=== PATIENT | female | born 1965 | race Caucasian/White ===

== ENCOUNTER → 2019-07-31 08:27 | Outpatient (CLI) | payer BC, SELFPAY ==
--- NOTE | 2019-07-31 08:32 | MM_ITS ---
PROCEDURE: MM DIG SCREENING MAMM BI W/CAD CLINICAL INDICATION: SCREENING There is a history of breast cancer patient's paternal cousin and paternal aunt both diagnosed before menopause. There has been a previous cyst aspiration left breast for benign disease. COMPARISON: DMDXUAVL DIG MAMM-DX UNI ADD VIEWS-LT from 10/08/2014 DMSB DIG MAMM-SCREEN TRENA from 05/23/2015 DMSB DIG MAMM-SCREEN TRENA W/CAD from 07/07/2017 TECHNIQUE: Standard CC and MLO images were obtained. R2 CAD reviewed. FINDINGS: Moderate diffuse fibroglandular densities are seen in both breast and the findings are fairly symmetrical bilaterally. There is no suspicious lesion in either breast and no suspicious microcalcifications. IMPRESSION: Fibrofatty parenchyma with no suspicious lesions seen BI-RAD Category: 1 Negative FOLLOW-UP: 1YR 1 Year Follow-up (A letter has been sent to the patient regarding results of the study.) Dictated by: Dr. Parveen Sullivan MD 08/01/2019 19:[address] Parveen Sullivan MD in [place] 08/01/2019 19:22
--- NOTE | 2019-07-31 08:45 | XR_ITS ---
PROCEDURE: XR DEXA AXIAL SKELETON CLINICAL HISTORY: MENOPAUSAL SCREENING COMPARISON: No exams were available for comparison FINDINGS: The L1-L4 density is 1.273 grams/centimeters sq with a T-score of 0.8 Left femoral neck density is 0.944 grams/centimeters sq with T-score -0.7 IMPRESSION: Normal bone density with low fracture risk. Suggest follow-up exam in 2 years Dictated by: Claribel De Luna 07/31/2019 09:47 Electronically signed by Arjun Hicks MD in [place] 07/31/2019 12:23
== END ==
PROVIDERS: PCP Nurse Practitioner Family; Visit Provider Obstetrics & Gynecology Gynecology
DX: Z12.31 Encounter for screening mammogram for malignant neoplasm of breast (principal); Z78.0 Asymptomatic menopausal state
CPT/HCPCS: 77067; 77080

== ENCOUNTER → 2019-11-19 12:14 | Outpatient (CLI) | payer BC, SELFPAY ==
--- NOTE | 2019-11-19 12:21 | XR_ITS ---
PROCEDURE: XR FOOT LT MIN 3V CLINICAL INDICATION: LT FOOT INJURY COMPARISON: No exams were available for comparison FINDINGS: No fracture or dislocation. No lytic or blastic change. There is normal mineralization. The joint spaces are well-preserved. No significant degenerative/arthritic changes. No erosive changes evident. Other findings:There is flexion deformity of the distal phalanx of the 2nd 3rd, 4th, and 5th toes IMPRESSION: Flexion of the distal phalanx of the 2nd through 5th toes otherwise negative Dictated by: Arjun Hicks MD 11/19/2019 13:13 Electronically signed by Arjun Hicks MD in [place] 11/19/2019 13:13
== END ==
PROVIDERS: PCP Nurse Practitioner Family; Visit Provider Nurse Practitioner Family
DX: S99.922A Unspecified injury of left foot, initial encounter (principal)
CPT/HCPCS: 73630

== ENCOUNTER → 2020-01-11 12:42 | Outpatient (CLI) | payer BC, SELFPAY ==
--- NOTE | 2020-01-11 12:52 | US_ITS ---
PROCEDURE: US THYROID CLINICAL INDICATION: HYPERTHYROIDISM COMPARISON: No exams were available for comparison FINDINGS: Right lobe: 3 x 1 x 0.6 cm. There is heterogeneous echogenicity. Left lobe: 3 x 1 x 0.6 cm with heterogeneous echogenicity Isthmus: Additional findings: No discrete nodule IMPRESSION: Small heterogeneous thyroid gland. No discrete nodule Dictated by: Arjun Hicks MD 01/11/2020 15:47 Electronically signed by Arjun Hicks MD in [place] 01/11/2020 15:47
== END ==
PROVIDERS: PCP Nurse Practitioner Family; Visit Provider Nurse Practitioner Family
DX: E05.90 Thyrotoxicosis, unspecified without thyrotoxic crisis or storm (principal)
CPT/HCPCS: 76536

== ENCOUNTER → 2020-08-05 09:24 | Outpatient (CLI) | payer BC, SELFPAY ==
--- NOTE | 2020-08-05 09:27 | MM_ITS ---
PROCEDURE: MM DIG SCREENING MAMM BI W/CAD Digital Breast Tomosynthesis Included CLINICAL INDICATION: SCREENING There is a history of breast cancer in the patient's paternal aunt diagnosed before menopause and the patient has 2 cousins both diagnosed before menopause. There has been a previous biopsy left breast for benign disease. COMPARISON: MG DMSB DIG MAMM-SCREEN TRENA from 05/23/2015 MG DMSB DIG MAMM-SCREEN TRENA W/CAD from 07/07/2017 MG MM DIG SCREENING MAMM BI W/CAD from 07/31/2019 TECHNIQUE: Standard CC and MLO images and 3D Tomosynthesis was obtained. R2 CAD reviewed. FINDINGS: Moderate diffuse fibroglandular densities are seen in both breast and the findings of bilateral and symmetrical. Josue images reveal no significant abnormality in either breast. There are no suspicious microcalcifications. IMPRESSION: Mild to moderate diffuse breast density with no suspicious lesions seen BI-RAD Category: 1 Negative FOLLOW-UP: 1YR 1 Year Follow-up (A letter has been sent to the patient regarding results of the study.) Dictated by: Dr. Parveen Sullivan MD 08/05/2020 11:44 Dr. Parveen Sullivan MD in [place] 08/05/2020 11:44
== END ==
PROVIDERS: PCP Nurse Practitioner Family; Visit Provider Obstetrics & Gynecology Gynecology
DX: Z12.31 Encounter for screening mammogram for malignant neoplasm of breast (principal)
CPT/HCPCS: 36415; 77063; 77067; 82533

== ENCOUNTER → 2020-08-11 12:09 | Outpatient (CLI) | payer BC, SELFPAY | PROVIDERS: PCP Nurse Practitioner Family; Visit Provider Nurse Practitioner Family | DX: Z03.818 Encounter for observation for suspected exposure to other biological agents ruled out (principal) | CPT/HCPCS: U0003 ==

== ENCOUNTER → 2020-10-01 15:13 | Outpatient (CLI) | payer BC, SELFPAY | PROVIDERS: PCP Nurse Practitioner Family; Visit Provider Nurse Practitioner Family | DX: Z03.818 Encounter for observation for suspected exposure to other biological agents ruled out (principal) | CPT/HCPCS: U0003 ==

== ENCOUNTER → 2021-03-24 09:16 | Outpatient (CLI) | payer BC, SELFPAY ==
--- NOTE | 2021-03-24 09:35 | XR_ITS ---
PROCEDURE: XR CHEST 2V CLINICAL HISTORY: SOB,COUGH COMPARISON: No exams were available for comparison FINDINGS: The cardiomediastinal silhouette and pulmonary vascularity are within normal limits. No lobar consolidation or collapse. There is some minimal biapical pleural thickening There is asymmetric increased density in the left suprahilar region. This may only be due to vascular overlap however, the appearance is somewhat spiculated. Follow-up chest x-ray with slightly different obliquity or preferably CT scan may provide further evaluation. The remaining lungs are clear. There is mild thoracic kyphosis with mild wedging of T7-T8 and T9. IMPRESSION: 1. Asymmetric density left suprahilar region which may only be due to overlying vascularity however there is a somewhat spiculated appearance. Suggest follow-up preferably CT to confirm stability. 2. Minimal wedging of T7-T8 and T9. Please correlate with clinical findings in regards to the chronicity Dictated by: Arjun Hicks MD 03/24/2021 11:16 Arjun Hicks MD in [place] 03/24/2021 11:16
--- NOTE | 2021-03-24 09:35 | XR_ITS ---
PROCEDURE: XR CERVICAL SPINE 5V CLINICAL INDICATION: CERVICALGIA,PARESTHESIA OF SKIN COMPARISON: No exams were available for comparison FINDINGS: There is normal alignment. There is mild degenerative disc disease at C5-C6 and C6-C7. There is minimal foraminal narrowing on the left and right at C5-C6 and C6-C7. No fracture or dislocation. No lytic or blastic change. No evidence of cervical rib. IMPRESSION: Mild degenerative disc disease with minimal foraminal narrowing bilaterally at C5-C6 and C6-C7 Dictated by: Arjun Hicks MD 03/24/2021 11:10 Arjun Hicks MD in [place] 03/24/2021 11:10
--- NOTE | 2021-03-24 09:36 | ECG_ITS ---
APPROVED REPORT Exam: Resting ECG HR:82 bpm ECG Measurements Heart Rate 82 AXES IA 168 P 78 QRSd 88 QRS 95 QT 398 T 73 QTc 464 Conclusion Normal sinus rhythm Rightward axis Borderline ECG Electronically signed by : Chance Garber, 03/24/2021 21:59:30
== END ==
PROVIDERS: PCP Nurse Practitioner Family; Visit Provider Nurse Practitioner Family
DX: R06.02 Shortness of breath (principal); R05 Cough; M54.2 Cervicalgia; R20.0 Anesthesia of skin; R20.2 Paresthesia of skin; I95.9 Hypotension, unspecified
CPT/HCPCS: 71046; 72050; 93005

== ENCOUNTER → 2021-04-24 09:51 | Outpatient (CLI) | payer BC, SELFPAY | PROVIDERS: PCP Emergency Medicine; Visit Provider Nurse Practitioner Family | DX: R05 Cough (principal) | CPT/HCPCS: 94060 ==

== ENCOUNTER 2021-08-26 10:43 | Emergency (ER) | payer BC, SELFPAY ==
[2021-08-26 12:42] VITALS: BP 119/66; PULSE 75; RESP 19; TEMP 36.7; O2SAT 100; BMI 20.9
--- NOTE | 2021-08-26 12:42 | HMH.EDUTC ---
[facility] [place] Clinical Impression: Strep throat Disposition: Home, Self-Care Condition on Discharge: Good Instructions: Strep Throat, DI for Strep Throat Additional Instructions: Drink plenty of fluids. Take tylenol or ibuprofen for pain or fever. Take the medications as directed. Follow up with your regular doctor. GO TO THE ER FOR ANY WORSENING SYMPTOMS Throw your tooth brush away and get a new one. Prescriptions: Ondansetron [Zofran 4mg ODT] 4 mg PO Q8HP PRN #12 tab PRN Reason: Nausea Transmission Status: Received by [facility] # Amoxicillin [Amoxicillin 500mg Tab] 500 mg PO TID 10 Days #30 tab Transmission Status: Received by [facility] # predniSONE [Deltasone 10mg tablet] 10 mg PO BID 3 Days #6 tab Transmission Status: Received by [facility] # Referrals: Handy Bloom MD [Primary Care Provider] - Forms: Work/School Release Time of Disposition: 12:50 Medical Decision Making - Medical Records Medical records reviewed: No: I reviewed the patient's medical records. - Ed Inquiry Pt receiving controlled substance: No Vital Signs: 08/26/21 12:42 08/26/21 12:46 Temperature 98.1 F 98.1 F Temperature Source Oral Pulse Rate 75 Pulse Rate [Left] 75 Respiratory Rate 19 18 Blood Pressure 119/66 Blood Pressure [Right Arm] 119/66 Blood Pressure Mean [Right Arm] 83 02 Sat by Pulse Oximetry 100 - Lab Data Lab results reviewed: Yes: I reviewed the patient's lab results. Lab Results 08/26/21 12:45: Strep Scn Rapid Clinic Positive A [facility] [place] - General Stated complaint: sore throat, cough, congestion, H/A Time Seen by Provider: 08/26/21 12:42 - History of Present Illness Provider Complaint: She c/o sore throat and feeling bad for the past 2 days. She denies a cough or congestion. She has been vaccinated against covid-19. - Related Data Previous Rx's Medication Instructions Recorded Amoxicillin [Amoxicillin 500mg Tab] 500 mg PO TID 10 Days #30 tab 08/26/21 Ondansetron [Zofran 4mg ODT] 4 mg PO Q8HP PRN #12 tab 08/26/21 predniSONE [Deltasone 10mg tablet] 10 mg PO BID 3 Days #6 tab 08/26/21 Allergies Allergy/AdvReac Type Severity Reaction Status Date / Time From NEOMYCIN & POLYMYXIN B Allergy Intermediate I-RASH, Uncoded 10/04/17 14:50 SULF, APOLLO... ITCHING From NEOSPORIN Allergy Intermediate I-RASH, Uncoded 10/04/17 14:50 ITCHING [facility] History - Hepatitis A Screen Attestation statement:: This patient has been screened for Hepatitis A risk factors. I have reviewed the patient's past medical history: Yes ROS Obtained: Yes All systems reviewed & no additional complaints - Constitutional Constitutional: Reports as per HPI - Eyes Eyes: Denies eye discharge - ENT Ears, Nose, Mouth, and Throat: Reports as per HPI - Cardiovascular Cardiovascular: Denies chest pain - Respiratory Respiratory: Denies chest congestion, Reports cough, Denies dyspnea, Denies stridor, Denies wheezing - Gastrointestinal Gastrointestingal: Reports: nausea. Denies: abdominal pain, diarrhea, vomiting Physical Exam - General General appearance: alert, in no apparent distress - Head Head exam: atraumatic, normocephalic, normal inspection - Eye Eye exam: Present: normal appearance, PERRL, EOMI - ENT ENT exam: Present: mucous membranes moist, normal external ear exam - Expanded ENT Exam TM/Canal exam: Bilateral TM: erythema, bulging, effusion Nose exam: Absent: sinus tenderness Nasal speculum exam: Bilateral: normal Mouth exam: Present: normal external inspection, tongue normal. Absent: drooling Teeth exam: Present: normal inspection Throat exam: Present: tonsillar erythema, tonsillomegaly, tonsillar exudate. Absent: R peritonsillar mass, L peritonsillar mass, muffled voice - Neck Neck exam: Present: normal inspection, full ROM, trachea midline. Absent: meningismus, lymphadenopathy
[2021-08-26 12:46] VITALS: BP 119/66; PULSE 75; RESP 18; TEMP 36.7
[2021-08-26 12:46] LABS: UTC Strep Screen (Rapid) Positive (Negative)
== END 2021-08-26 12:55 | disposition home or self-care (01) ==
PROVIDERS: Emergency Provider Nurse Practitioner Family; PCP Emergency Medicine
DX: J02.0 Streptococcal pharyngitis (principal)
CPT/HCPCS: 87880; 99202; G0463

== ENCOUNTER → 2021-09-23 08:31 | Outpatient (CLI) | payer BC, SELFPAY ==
--- NOTE | 2021-09-23 08:33 | MM_ITS ---
PROCEDURE INFORMATION: Exam: MG Bilateral Screening 3D Mammography Exam date and time: 09/23/2021 8:33 AM Age: 56 years old Clinical indication: Encounter for screening mammogram for malignant neoplasm of breast . Family history of breast carcinoma. TECHNIQUE: Imaging protocol: Bilateral screening tomosynthesis and 2D mammography including computer-aided detection (CAD) when performed. COMPARISON: 1. MG MM DIG SCREENING MAMM BI W/CAD 08/05/2020 9:28 AM 2. MG MM DIG SCREENING MAMM BI W/CAD 07/31/2019 8:56 AM 3. MG DMSB DIG MAMM-SCREEN TRENA W/CAD 07/07/2017 8:35 AM FINDINGS: MAMMOGRAPHY: Breast composition: There are scattered areas of fibroglandular density. Mass: No suspicious masses. Architectural distortion: No suspicious distortion. Calcifications: No suspicious calcifications. Asymmetric density: None. Skin thickening: None. Axillary adenopathy: None. IMPRESSION: No mammographic evidence of malignancy. Annual screening is recommended unless otherwise clinically indicated. ASSESSMENT: BI-RADS Category 1: Negative
== END ==
PROVIDERS: PCP Emergency Medicine; Visit Provider Obstetrics & Gynecology Gynecology
DX: Z12.31 Encounter for screening mammogram for malignant neoplasm of breast (principal)
CPT/HCPCS: 77063; 77067

== ENCOUNTER 2023-03-01 08:22 | Emergency (ER) | payer OTHER, BC, SELFPAY ==
[2023-03-01] VITALS (11 sets, daily range): BP systolic 97–131; BP diastolic 52–74; PULSE 65–91; RESP 15–20; TEMP 36.8; O2SAT 96–100; BMI 25.4
--- NOTE | 2023-03-01 08:25 | ECG_ITS ---
APPROVED REPORT Exam: Resting ECG HR:81 bpm ECG Measurements Heart Rate 81 AXES NH 170 P 70 QRSd 93 QRS 79 QT 364 T 70 QTc 401 Conclusion SINUS RHYTHM NORMAL ECG UNCONFIRMED REPORT Electronically signed by : Chance Garber MD 03/01/2023 20:09:12
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
--- NOTE | 2023-03-01 08:34 | PC.NURSE ---
family at BS
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
[2023-03-01 08:57] LABS: Basophils % 0.3 % (0.1-2.0); Eosinophils # 0.1 K/mm3 (0.0-0.4); Eosinophils % 1.8 % (0.1-12.0); Hematocrit 38.4 % (37.0-47.0); Hemoglobin 12.5 g/dL (12.2-16.2); Lymphocytes # 1.1 K/mm3 (0.7-4.5); Lymphocytes % 29.4 % (10-50); Mean Corpuscular HGB Conc 32.5 g/dL (31.8-35.4); Mean Corpuscular Hemoglobin 30.1 pg (27.0-31.2); Mean Corpuscular Volume 92.4 fl (81-99); Mean Platelet Volume 7.4 fl (7.4-10.4); Monocytes # 0.2 K/mm3 (0.1-1.0); Monocytes % 5.2 % (1.7-9.3); Neutrophils # 2.5 K/mm3 (1.8-7.8); Neutrophils % 63.3 % (37.0-80.0); Platelet Count 321 K/mm3 (142-424); Red Blood Count 4.15 M/mm3 (4.20-5.40); Red Cell Distribution Width 13.5 % (11.5-17.5); White Blood Count 3.9 K/mm3 (4.8-10.8)
[2023-03-01 08:59] LABS: Chloride 106 mmol/L (98-107); Sodium 141 mmol/L (136-145)
--- NOTE | 2023-03-01 08:59 | PC.NURSE ---
Radiology aware of orders; Spoke with Damaris
[2023-03-01 09:01] LABS: Alanine Aminotransferase 17 U/L (12-78); Alkaline Phosphatase 44 U/L (38-126); Aspartate Amino Transferase 28 U/L (14-36); Blood Urea Nitrogen 12 mg/dl (7-17); Creatinine Clearance Estimated 80 mL/min (50-200); Estimated Glomerular Filt Rate 65 ml/min (>60); GFR (African American) 79 ML/MIN (>60)
[2023-03-01 09:02] LABS: Albumin Level 4.2 g/dl (3.5-5.0); Albumin/Globulin Ratio 1.6 (1.1-1.8); Bilirubin,Total < 0.1 mg/dl (0.2-1.3); Calcium 8.4 mg/dl (8.4-10.2); Carbon Dioxide 24 mmol/L (22.0-30.0); Globulin 2.7 g/dL (1.3-3.2); Glucose 82 mg/dl (74-100); Total Protein,Serum 6.9 g/dl (6.3-8.2)
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
--- NOTE | 2023-03-01 09:04 | PC.NURSE ---
pt to rad
--- NOTE | 2023-03-01 09:13 | PC.NURSE ---
K.Brown is rounding on pt
[2023-03-01 09:33] LABS: Troponin I < 0.01 ng/ml (0.00-0.034)
--- NOTE | 2023-03-01 10:07 | PC.NURSE ---
rounded on pt states her arm and back was hurting relayed it to the nurse she also asked how long before her scans would be back. informed pt that we have them sent out to another facility and i dont have a specific time frame as to when they will be back
--- NOTE | 2023-03-01 10:25 | PC.NURSE ---
contacted rad to check status of CT results, states no preliminary results available yet.
--- NOTE | 2023-03-01 11:06 | PC.NURSE ---
rounded on pt no complaints, still waiting for results , family at bedside
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
--- NOTE | 2023-03-01 12:21 | PC.NURSE ---
checked on pt nothing needed at this time, visitor at bedside
== END 2023-03-01 13:29 | disposition home or self-care (01) ==
PROVIDERS: Emergency Provider Emergency Medicine; PCP Emergency Medicine
DX: M54.2 Cervicalgia (principal); R07.89 Other chest pain; M25.512 Pain in left shoulder; V47.0XXA Car driver injured in collision with fixed or stationary object in nontraffic accident, initial encounter
CPT/HCPCS: 70450; 71045; 71100; 71275; 72072; 72125; 74177; 80053; 84484; 85025; 93005; 96374; 96375; 99285; Q9967

== ENCOUNTER → 2023-03-22 08:21 | Outpatient (CLI) | payer BC, SELFPAY ==
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
== END ==
PROVIDERS: PCP Emergency Medicine; Visit Provider Obstetrics & Gynecology Gynecology
DX: Z12.31 Encounter for screening mammogram for malignant neoplasm of breast (principal)
CPT/HCPCS: 77063; 77067

== ENCOUNTER → 2023-04-06 12:47 | Outpatient (CLI) | payer BC, SELFPAY ==
--- NOTE | 2023-04-06 12:52 | MM_ITS ---
PROCEDURE INFORMATION: Exam: US Left Breast, Complete MG Left Diagnostic Breast Tomosynthesis Exam date and time: 04/06/2023 1:23 PM Age: 58 years old Clinical indication: Patient recalled on the basis of a screening mammogram for further evaluation; Left breast; asymmetry TECHNIQUE: Imaging protocol: Complete ultrasound of all four quadrants of the left breast and the retroareolar regions, including ultrasound of the axilla when performed. Left Diagnostic tomosynthesis and 2D mammography including computer-aided detection (CAD) when performed. Unilateral or bilateral exam. COMPARISON: MG MM DIG MAMM DX UNILAT LT CAD 04/06/2023 12:48 PM FINDINGS: MAMMOGRAPHY: Digital diagnostic spot compression views of the left breast and 90 degree lateral view of the left breast demonstrate normal overlapping fibroglandular structures without persistent mass or asymmetry identified. ULTRASOUND: Sonographic images of the left breast including the retroareolar region, all 4 quadrants and the axilla do not demonstrate any solid or cystic masses. No architectural distortion or acoustical shadowing. No skin thickening or axillary adenopathy. IMPRESSION: No mammographic or sonographic evidence of malignancy. Annual bilateral mammographic screening is recommended unless otherwise clinically indicated. ASSESSMENT: BI-RADS Category 1: Negative
== END ==
PROVIDERS: PCP Emergency Medicine; Visit Provider Emergency Medicine
DX: R92.8 Other abnormal and inconclusive findings on diagnostic imaging of breast (principal)
CPT/HCPCS: 76641; 77061; 77065; G0279

== ENCOUNTER → 2023-07-13 10:28 | Outpatient (CLI) | payer BC, SELFPAY ==
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
== END ==
PROVIDERS: PCP Emergency Medicine; Visit Provider Orthopaedic Surgery Adult Reconstructive Orthopaedic Surgery
DX: M25.521 Pain in right elbow (principal)
CPT/HCPCS: 73221

== ENCOUNTER 2024-05-21 08:16 | Outpatient (CLI) | payer BC, SELFPAY ==
--- NOTE | 2024-05-21 08:37 | MM_ITS ---
PROCEDURE INFORMATION: Exam: MG Bilateral Screening 3D Mammography Exam date and time: 05/21/2024 8:21 AM Age: 59 years old Clinical indication: Screening mammogram TECHNIQUE: Imaging protocol: Bilateral Screening tomosynthesis and 2D mammography including computer-aided detection (CAD) when performed. COMPARISON: 1. MG MM DIG MAMM DX UNILAT LT CAD 04/06/2023 12:48 PM 2. MG MM DIG SCREENING MAMM BI W/CAD 03/22/2023 8:25 AM 3. MG MM DIG SCREENING MAMM BI W/CAD 09/23/2021 8:31 AM 4. MG MM DIG SCREENING MAMM BI W/CAD 08/05/2020 9:28 AM FINDINGS: MAMMOGRAPHY: Breast composition: There are scattered areas of fibroglandular density. Mass: None. Architectural distortion: No new or suspicious architectural distortion. Calcifications: No new or suspicious calcifications are present Asymmetric density: No new or suspicious asymmetric density is present Skin thickening: None. Axillary adenopathy: None. IMPRESSION: No mammographic evidence of malignancy. Recommend annual screening mammography unless otherwise clinically indicated. ASSESSMENT: BI-RADS category 1: Negative.
== END 2024-05-21 23:59 | disposition home or self-care (01) ==
LOC: RAD 08:16
PROVIDERS: PCP Obstetrics & Gynecology Gynecology; Visit Provider Obstetrics & Gynecology Gynecology
DX: Z12.31 Encounter for screening mammogram for malignant neoplasm of breast (principal)
CPT/HCPCS: 77063; 77067

== ENCOUNTER 2024-05-23 10:22 | Outpatient (CLI) | payer BC, SELFPAY ==
--- NOTE | 2024-05-23 10:27 | XR_ITS ---
FINAL REPORT CLINICAL HISTORY: Right foot pain COMPARISON: None FINDINGS: RIGHT FOOT 3 views of the right foot were obtained. There is no acute fracture or dislocation. There is mild degenerative change at the 1st MTP. Visualized joint spaces are normally aligned. Soft tissues are unremarkable. IMPRESSION: Mild degenerative change without acute bony abnormality. Reviewed, Interpreted and Dictated by Star Robison III, MD Transcribed by Alejandrina Yousif Authenticated and [facility]
--- NOTE | 2024-05-23 10:27 | XR_ITS ---
FINAL REPORT CLINICAL HISTORY: Left foot pain COMPARISON: None FINDINGS: LEFT FOOT Three views of the left foot demonstrate no acute fracture or dislocation. The visualized joint spaces are normally aligned. The soft tissues are unremarkable. IMPRESSION: No acute bony abnormality. Reviewed, Interpreted and Dictated by Star Robison III, MD Transcribed by Alejandrina Yousif Authenticated and [facility]
== END 2024-05-23 23:59 | disposition home or self-care (01) ==
PROVIDERS: PCP Emergency Medicine; Visit Provider Family Medicine
DX: M79.671 Pain in right foot (principal); M79.672 Pain in left foot
CPT/HCPCS: 73630

== ENCOUNTER 2024-07-20 09:12 | Outpatient (CLI) | payer BC, SELFPAY ==
--- NOTE | 2024-07-20 | MR_ITS ---
FINAL REPORT CLINICAL HISTORY: CERVICAL DDD chronic neck pain with left arm pain, numbness, tingling COMPARISON: None FINDINGS: Multi planar MR imaging was obtained of the cervical spine. There is abnormal decreased signal throughout the cervical discs. The vertebrae are of normal height. There is minimal spondylolisthesis of C5 on C6. There is moderate disc space narrowing at C5-6 and C6-7. The cervical cord demonstrates normal signal and configuration. C2-C3: There is no evidence of significant disc bulge or protrusion. There is no significant facet hypertrophy. C3-C4: There is no evidence of significant disc bulge or protrusion. There is no significant facet hypertrophy. C4-C5: There is no evidence of significant disc bulge or protrusion. There is no significant facet hypertrophy. C5-C6: Moderate diffuse disc bulge. Endplate hypertrophy. High-grade right and moderate left neuroforaminal narrowing. C6-C7: Moderate diffuse disc bulge. Moderate to high-grade bilateral neuroforaminal narrowing. C7-T1: There is no evidence of significant disc bulge or protrusion. There is no significant facet hypertrophy. IMPRESSION: Neuroforaminal compromise high-grade on the right at C5-6 and moderate to high-grade bilaterally at C6-7. Reviewed, Interpreted and Dictated by Gilberto Ortega MD Transcribed by Alejandrina Yousif Authenticated and . [facility]
== END 2024-07-20 23:59 | disposition home or self-care (01) ==
LOC: RAD 09:13
PROVIDERS: PCP Emergency Medicine; Visit Provider Physician Assistant
DX: M54.2 Cervicalgia (principal)
CPT/HCPCS: 72141

== ENCOUNTER 2024-07-23 08:00 | Outpatient (RCR) | payer BC, SELFPAY | END 2024-07-23 23:59 | disposition home or self-care (01) | LOC: OT 08:00 | PROVIDERS: Visit Provider Orthopaedic Surgery Adult Reconstructive Orthopaedic Surgery | DX: M77.8 Other enthesopathies, not elsewhere classified (principal) | CPT/HCPCS: 97014; 97035; 97140; 97164; 97165; 97530; G0283 ==

== ENCOUNTER 2024-10-01 11:46 | Emergency (ER) | payer BC, SELFPAY ==
[2024-10-01 12:10] VITALS: BP 140/85; PULSE 80; RESP 16; TEMP 36.5; O2SAT 98; BMI 24.7
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
[2024-10-01 12:31] VITALS: BP 140/85; PULSE 80; RESP 16; TEMP 36.5; O2SAT 98
== END 2024-10-01 12:33 | disposition home or self-care (01) ==
PROVIDERS: Emergency Provider Nurse Practitioner; PCP Emergency Medicine
DX: S00.451A Superficial foreign body of right ear, initial encounter (principal); W45.8XXA Other foreign body or object entering through skin, initial encounter
CPT/HCPCS: 99213; G0381

== ENCOUNTER 2024-10-08 15:18 | Outpatient (CLI) | payer BC, SELFPAY ==
--- NOTE | 2024-10-08 15:22 | MR_ITS ---
PROCEDURE INFORMATION: Exam: MR Left Upper Extremity Joint Without Contrast; Shoulder Exam date and time: 10/08/2024 4:11 PM Age: 59 years old Clinical indication: Pain; Shoulder; Left; Patient HX: Lrom; Additional info: Lt shoulder impinement TECHNIQUE: Imaging protocol: Magnetic resonance imaging of the left upper extremity without contrast. Exam focused on the shoulder. COMPARISON: MR CERVICAL SPINE WO CON 07/20/2024 9:55 AM FINDINGS: Bones/joints: Moderate anterior and mild lateral downsloping of the acromion. Trace subacromial/subdeltoid fluid. Glenoid humeral head cartilage are unremarkable. Rotator interval: Mild inflammatory change in the rotator interval. Glenoid labrum: Glenoid labrum is unremarkable. Supraspinatus tendon: Articular surface medium grade partial-thickness tear of the supraspinatus tendon close to the footplate, measuring approximately 9.2 mm medial-lateral. [id number] tendinosis of the supraspinatus tendon. Infraspinatus tendon: [id number] tendinosis of the infraspinatus tendon. No distinct tear. Subscapularis tendon: Unremarkable. No evidence of tear. Teres minor tendon: Subscapularis and teres minor tendons are unremarkable. Tendon of biceps brachii: Unremarkable. No evidence of tear. Glenohumeral ligaments: Unremarkable. Soft tissues: Note made of moderate thickening of the axillary pouch. Trace pelvic fluid. Normal muscle bulk and signal. IMPRESSION: 1. Moderate tendinosis of the supraspinatus tendon, with medium grade partial thickness articular surface tear close to the footplate measuring approximately 9 mm medial to lateral. 2. Thickened axillary pouch. Mild inflammatory change in the rotator interval. These findings can be seen with adhesive capsulitis. Recommend correlation. 3. Trace subacromial/subdeltoid fluid. 4. Moderate anterior and mild lateral downsloping of the acromion. Predisposes to subacromial impingement.
== END 2024-10-08 23:59 | disposition home or self-care (01) ==
LOC: RAD 15:18
PROVIDERS: PCP Emergency Medicine; Visit Provider Physician Assistant
DX: M75.42 Impingement syndrome of left shoulder (principal)
CPT/HCPCS: 73221

== ENCOUNTER 2024-10-12 08:00 | Outpatient (RCR) | payer BC, SELFPAY | END 2024-10-12 23:59 | disposition home or self-care (01) | LOC: PT 08:00 | PROVIDERS: PCP Emergency Medicine; Visit Provider Orthopaedic Surgery Adult Reconstructive Orthopaedic Surgery | DX: M50.30 Other cervical disc degeneration, unspecified cervical region (principal) | CPT/HCPCS: 97014; 97035; 97110; 97140; 97163; 97164; G0283 ==

== ENCOUNTER 2024-11-15 10:00 | Outpatient (RCR) | payer BC, SELFPAY | END 2024-11-15 23:59 | disposition home or self-care (01) | LOC: OT 10:00 | PROVIDERS: Visit Provider Orthopaedic Surgery Adult Reconstructive Orthopaedic Surgery | DX: Z98.890 Other specified postprocedural states (principal) | CPT/HCPCS: 97014; 97035; 97110; 97140; 97165; 97530; G0283 ==

== ENCOUNTER 2024-12-11 11:50 | Outpatient (CLI) | payer BC, SELFPAY | END 2024-12-11 23:59 | disposition home or self-care (01) | LOC: LAB.DROPOF 12-13 11:54 | PROVIDERS: PCP Emergency Medicine; Visit Provider Nurse Practitioner | DX: R30.9 Painful micturition, unspecified (principal) | CPT/HCPCS: 87086; 87088; 87186 ==

== ENCOUNTER 2024-12-12 15:00 | Outpatient (RCR) | payer BC, SELFPAY | END 2024-12-12 23:59 | disposition home or self-care (01) | LOC: OT 15:00 | PROVIDERS: Visit Provider Orthopaedic Surgery Adult Reconstructive Orthopaedic Surgery | DX: Z98.890 Other specified postprocedural states (principal) | CPT/HCPCS: 97014; 97110; 97140; 97168; 97530; G0283 ==

== ENCOUNTER 2025-01-14 08:00 | Outpatient (RCR) | payer BC, SELFPAY | END 2025-01-14 23:59 | disposition home or self-care (01) | LOC: OT 08:00 | PROVIDERS: Visit Provider Orthopaedic Surgery Adult Reconstructive Orthopaedic Surgery | DX: Z98.890 Other specified postprocedural states (principal) | CPT/HCPCS: 97010; 97014; 97035; 97110; 97140; 97168; 97530; G0283 ==

== ENCOUNTER 2025-02-13 15:00 | Outpatient (RCR) | payer BC, SELFPAY | END 2025-02-13 23:59 | disposition home or self-care (01) | LOC: OT 15:00 | PROVIDERS: Visit Provider Orthopaedic Surgery Adult Reconstructive Orthopaedic Surgery | DX: Z98.890 Other specified postprocedural states (principal) | CPT/HCPCS: 97014; 97110; 97140; 97168; 97530; G0283 ==

== ENCOUNTER 2025-03-14 15:00 | Outpatient (RCR) | payer BC, SELFPAY | END 2025-03-14 23:59 | disposition home or self-care (01) | LOC: OT 15:00 | PROVIDERS: Visit Provider Orthopaedic Surgery Adult Reconstructive Orthopaedic Surgery | DX: F33.9 Major depressive disorder, recurrent, unspecified (principal); Z96.612 Presence of left artificial shoulder joint | CPT/HCPCS: 97014; 97110; 97140; 97168; G0283 ==

== ENCOUNTER 2025-04-03 15:00 | Outpatient (RCR) | payer BC, SELFPAY | END 2025-04-03 23:59 | disposition home or self-care (01) | LOC: OT 15:00 | PROVIDERS: Visit Provider Orthopaedic Surgery Adult Reconstructive Orthopaedic Surgery | DX: F33.9 Major depressive disorder, recurrent, unspecified (principal); Z96.612 Presence of left artificial shoulder joint | CPT/HCPCS: 97014; 97110; 97140; G0283 ==

== ENCOUNTER 2025-04-08 14:00 | Outpatient (POV) | payer BC, SELFPAY ==
--- OUTSIDE RECORDS SUMMARY | 2025-04-08 14:03 | XMS_ITS | Clinical Summary ---
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
--- OUTSIDE RECORDS SUMMARY | 2025-04-08 14:03 | XMS_ITS | Data Portability ---
Author Organization [place] & ANDRAE Quintana ADMIN Address [address] [place] [id number] Care Team Providers Care Pc Tech Name Role Phone KEY WATTS Referring Provider HANDY HURD Primary Care Provider Assessment Encounter Date Assessment Date Assessment LastModified by Organization Details LastModified Time 11/23/2023 11/23/2023 Evaluation and examination. Reviewed PMH. Discussed podiatric pathology including treatment options with the patient at length. Reviewed referring provider's notes. Not available 11/23/2023 09:28:24 02/29/2024 02/29/2024 13 minute telemedicine evaluation with greater than 50% direct patient contact regarding history, exam, diagnosis, treatment plan. [email or web address] Not available 02/29/2024 16:44:04 Plan of Treatment Reminders Order Date Submit Date Provider Last Modified By Organization Details Last Modified Time Details Appointments None recorded. Lab [facility]inalysis, [facility], [address] [place], [address], 4 10:43:14 CBC w/ auto diff 2023 [facility], [address] [place], [address], 13:19:34 TSH, serum or plasma 2023 [facility], [address] [place], [address], 4 14:00:50 lupus anticoagula nt, plasma 2023 [facility], [address] [facility] [place], [address], 4 07:55:18 EMILEE + rf (antinuclea r antibodies + rheumatoid factor), quantitativ e, serum 2023 [facility], [address] [facility] [place], [address], 4 07:54:39 C-reactive protein, quantitativ e, serum or plasma 2023 024 [facility], [address] [facility] [place], [address], 4 14:00:52 ESR (erythrocyt e sedimentati on rate), blood 2023 [facility], [address] [facility] [place], [address], 4 14:30:21 anti-dsdna Ab, serum, reflex confirmatio n 2023 [facility], [address] [facility] [place], [address], 4 07:54:49 arrieta Ab, serum 2023 [facility], [address] [place], [address], 4 07:54:59 Referral orthopedic surgeon referral 2023 024 [email or web address] 0 Sreedhar Tate MD, [address], [address], [place], [address], 4 14:02:09 rheumatolog ist referral 2023 024 ventura Alex MD, [address] [facility], [address], [place], [address], 4 12:41:34 sleep medicine referral 2023 024 RAMIRO Crooks MD, [address], [address], [place], [address], 4 08:51:53 Procedures polysomnogr aphy, diagnostic (PROC) [email or web address] [place] [address] Centralized Scheduling, [address] [place], [address], 4 09:49:54 Surgeries None recorded. Imaging XR, shoulder, 2 or more view - LEFT SHOULDER 2023 024 [facility] Centralized Scheduling, [address] [place], [address], 4 07:36:22 XR, foot 2023 024 [email or web address] [facility], [address] [place] [address], [address], [place], [address], 4 09:30:22 Medication Orders prednisone 20 mg tablet 2023 024 [facility][id number], [address], [id number], 4 09:07:04 Depo-Medrol 40 mg/mL suspension for injection 2023 024 [facility][id number], [address], [id number], 4 10:34:05 Patient TargetsNo targets recorded. Patient Instructions Encounter Date Encounter Id Patient Instructions Last Modified By Organization Details Last Modified Time 11/23/2023 [id number] f/u 2 months [email or web address] Not available 09:30:09 Some of the information in this note was entered by the [facility] under the direction and training of the attending physician. I have reviewed the documentation of the encounter entered by the [facility] and attest that it is accurate. [email or web address] materials planner/production planner software was utilized to enter some information in this note and therefore may contain voice recognition errors. Intake and other documentation entered by Kerline Torres CMA. Not available 11/23/2023 09:30:21 Reason for Referral Blockmason Referral for Fatigue Referring Physician: Handy Hurd [facility], Encounter Date: 02/21/2024 Sleep Medicine Referral for Fatigue Referring Physician: Handy Hurd [facility], Encounter Date: 02/21/2024 Orthopedic Surgeon Referral for Pain of left shoulder joint Referring Physician: Handy Hurd [facility], Encounter Date: 05/08/2024 Results Created Date Observation Date Name Description Value Unit Range Abnormal Flag Note LastModifiedBy Organization Detail LastModifiedTime 02/21/20 24 02/21/2024 CBC AUTO W DIFF WBC 3.3 10 4.5-11 .5 low Not Available [facility] (Lab Registration) [address] [place], [address], 02/21/2024 13:19:34 02/21/20 24 02/21/2024 CBC AUTO W DIFF RBC 3.82 10 4.25-5 .57 low Not Available [facility] (Lab Registration) [address] [place], [address], 02/21/2024 13:19:34 02/21/20 24 02/21/2024 CBC AUTO W DIFF HGB 11.7 g/dL 12.0-1 5.7 low Not Available [facility] (Lab Registration) [address] [place], [address], 02/21/2024 13:19:34 02/21/20 24 02/21/2024 CBC AUTO W DIFF HCT 35.6 % 36.0-4 7.0 low Not Available [facility] (Lab Registration) [address] [place], [address], 02/21/2024 13:19:34 02/21/20 24 02/21/2024 CBC AUTO W DIFF MCV 93.2 fL 80-95 Not Available [facility] (Lab Registration) [address] [place], [address], 02/21/2024 13:19:34 02/21/20 24 02/21/2024 CBC AUTO W DIFF MCH 30.6 pg 27.0-3 4.0 Not Available [facility] (Lab Registration) [address] [place], [address], 02/21/2024 13:19:34 02/21/20 24 02/21/2024 CBC AUTO W DIFF MCHC 32.9 g/dL 32.0-3 6.0 Not Available [facility] (Lab Registration) [address] [place], [address], 02/21/2024 13:19:34 02/21/20 24 02/21/2024 CBC AUTO W DIFF platelet count 295 10 150-45 0 Not Available [facility] (Lab Registration) [address] [place], [address], 02/21/2024 13:19:34 02/21/20 24 02/21/2024 CBC AUTO W DIFF RDW 13.1 % 12.3-1 5.1 Not Available [facility] (Lab Registration) [address] [place], [address], 02/21/2024 13:19:34 02/21/20 24 02/21/2024 CBC AUTO W DIFF MPV 9.6 fL 7.4-10 .4 Not Available [facility] (Lab Registration) [address] [place], [address], 02/21/2024 13:19:34 02/21/20 24 02/21/2024 CBC AUTO W DIFF granulocyte% 56.8 % 40-75 Not Available [facility] (Lab Registration) [address] [place], [address], 02/21/2024 13:19:34 02/21/20 24 02/21/2024 CBC AUTO W DIFF lymphocyte% 31.7 % 15-57 Not Available [facility] (Lab Registration) [address] [place], [address], 02/21/2024 13:19:34 02/21/20 24 02/21/2024 CBC AUTO W DIFF monocyte% 8.8 % 4.0-12 .0 Not Available [facility] (Lab Registration) [address] [place], [address], 02/21/2024 13:19:34 02/21/20 24 02/21/2024 CBC AUTO W DIFF eosinophil% 2.4 % 0.0-4. 0 Not Available [facility] (Lab Registration) [address] [place], [address], 02/21/2024 13:19:34 02/21/20 24 02/21/2024 CBC AUTO W DIFF basophil% 0.3 % 0.0-1. 0 Not Available [facility] (Lab Registration) [address] [place], [address], 02/21/2024 13:19:34 02/21/20 24 02/21/2024 CBC AUTO W DIFF immature granulocytes % 0.0 % 0.0-0. 8 Not Available [facility] (Lab Registration) [address] [place], [address], 02/21/2024 13:19:34 02/21/20 24 02/21/2024 CBC AUTO W DIFF granulocyte# 1.86 10 Not Available [facility] (Lab Registration) [address] [place], [address], 02/21/2024 13:19:34 02/21/20 24 02/21/2024 CBC AUTO W DIFF lymphocyte# 1.04 10 Not Available [facility] (Lab Registration) [address], [place], [address], 02/21/2024 13:19:34 02/21/20 24 02/21/2024 CBC AUTO W DIFF monocyte# 0.29 10 Not Available [facility] (Lab Registration) [address] [place], [address], 02/21/2024 13:19:34 02/21/20 24 02/21/2024 CBC AUTO W DIFF eosinophil# 0.08 10 Not Available [facility] (Lab Registration) [address] [place], [address], 02/21/2024 13:19:34 02/21/20 24 02/21/2024 CBC AUTO W DIFF basophil# 0.01 10 Not Available [facility] (Lab Registration) [address] [place], [address], 02/21/2024 13:19:34 02/21/20 24 02/21/2024 CBC AUTO W DIFF immature granulocytes # 0.00 10 Not Available [facility] (Lab Registration) [address] [place], [address], 02/21/2024 13:19:34 02/21/20 24 02/21/2024 CBC AUTO W DIFF manual differential NO Not Available [facility] (Lab Registration) [address] [place], [address], 02/21/2024 13:19:34 02/21/20 24 02/21/2024 CBC AUTO W DIFF note Unles s other heredia noted testi ng perfo rmed at: [facility] [employer] [place] [address] [phone] [phone] 00 Devan arevalo MD CLIA: [id number] Not Available [facility] (Lab Registration) [address] [place], [address], 02/21/2024 13:19:34 02/21/20 24 02/21/2024 THYRO ID STIMU LATIN G HORMO NE thyroid stimulating hormone 0.28 mIU/m L 0.34-4 .80 low Not Available [facility] (Lab Registration) [address], [place], [address], 02/21/2024 14:00:50 02/21/20 24 02/21/2024 THYRO ID STIMU LATIN G HORMO NE note Unles s other heredia noted testi ng perfo rmed at: [facility] [address] [place] [address] [phone] [phone] 00 Devan arevalo MD CLIA: [id number] Not Available [facility] (Lab Registration) [address] [place], [address], 02/21/2024 14:00:50 02/21/20 24 02/21/2024 C-ANGIE CTIVE PROTE IN C-reactive protein, quant 0.10 mg/dL 0.05-0 .300 Not Available [facility] (Lab Registration) [address] [place], [address], 02/21/2024 14:00:52 02/21/20 24 02/21/2024 C-ANGIE CTIVE PROTE IN note Unles s other heredia noted testi ng perfo rmed at: [facility] [address] [place] [address] [phone] [phone] 00 Devan arevalo MD CLIA: [id number] Not Available [facility] (Lab Registration) [address] [place], [address], 02/21/2024 14:00:52 02/21/20 24 02/21/2024 T4 FREE T4,free 1.03 NG/dL 0.76-1 .46 Effec tive today 013 new Refer ence Range . Not Available [facility] (Lab Registration) [address], [place], [address], 02/21/2024 14:21:18 02/21/20 24 02/21/2024 T4 FREE note Unles s other heredia noted testi ng perfo rmed at: [facility] [address] [place] [address] 87-36 00 Devan arevalo MD CLIA: [id number] Not Available [facility] (Lab Registration) [address] [place], [address], 02/21/2024 14:21:18 02/21/20 24 02/21/2024 SEDIM ENTAT ION RATE sedimentatio n rate 2 mm/HR 0-30 Not Available [facility] (Lab Registration) [address] [place], [address], 02/21/2024 14:30:21 02/21/20 24 02/21/2024 SEDIM ENTAT ION RATE note Unles s other heredia noted testi ng perfo rmed at: [facility] [address] [place] [address] 87-36 00 Devan arevalo MD CLIA: [id number] Not Available [facility] (Lab Registration) [address] [place], [address], 02/21/2024 14:30:21 02/21/20 24 02/21/2024 RA FACTO R QUAL note Unles s other heredia noted testi ng perfo rmed at: [facility] [address] [place] [address] 87-36 00 Devan arevalo MD CLIA: [id number] Not Available [facility] (Lab Registration) [address] [place], [address], 02/22/2024 11:18:32 02/21/20 24 02/22/2024 RA FACTO R QUAL RA latex turbid. <10.0 IU/mL -<14.0 Perfo rmed at: - [facility] [address] [place], [place] [address] Lab Direc tor: Cassius meier PhD, Phone : [phone] SENT TO REFER ENCE LAB Not Available [facility] (Lab Registration) [address] [place], [address], 02/22/2024 11:18:32 02/21/20 24 02/21/2024 ANTI DOUBL E STRAN DED DNA note Unles s other heredia noted testi ng perfo rmed at: [facility] [address] [place], [place] [address] [phone] 44-36 00 Devan arevalo MD CLIA: [id number] Not Available [facility] (Lab Registration) [address] [place], [address], 02/22/2024 12:14:08 02/21/20 24 02/22/2024 ANTI DOUBL E STRAN DED DNA anti-DNA (ds) Ab qn 2 IU/mL 0-9 Negat paul <5 Equiv ocal 5 - 9 Posit paul >9 Perfo rmed at: - [facility] [address] [place] [address] Lab Direc tor: Cassius meier PhD, Phone : [phone] SENT TO REFER ENCE LAB Not Available [facility] (Lab Registration) [address] [place], [address], 02/22/2024 12:14:08 02/21/20 24 02/21/2024 EMILEE QUAL SCREE N note Unles s other heredia noted testi ng perfo rmed at: [facility] [address] [place], [place] [address] [phone] [phone] 26 Devan arevalo MD CLIA: [id number] Not Available [facility] (Lab Registration) [address] [place], [address], 02/22/2024 12:14:09 02/21/20 24 02/22/2024 EMILEE QUAL SCREE N EMILEE direct Negati ve negati ve Perfo rmed at: - [facility] [place] [id number] [place] [address] Lab Direc tor: Cassius meier PhD, Phone : [phone] SENT TO REFER ENCE LAB Not Available [facility] (Lab Registration) [address], [place], [address], 02/22/2024 12:14:09 02/21/20 24 02/21/2024 ARRIETA ANTIB ODIES note Unles s other heredia noted testi ng [facility]: [facility] [place], [place] [address] [phone] 00 Devan arevalo MD CLIA: [id number] Not Available [facility] (Lab Registration) [address] [place], [address], 02/22/2024 14:17:38 02/21/20 24 02/22/2024 ARRIETA ANTIB ODIES arrieta antibodies <0.2 ai 0.0-0. 9 Perfo rmed at: [facility] [address] [address] Lab Direc tor: Cassius meier PhD, Phone : [phone] SENT TO REFER ENCE LAB Not Available [facility] (Lab Registration) [address] [place], [address], 02/22/2024 14:17:38 02/21/20 24 02/21/2024 LUPUS ANTIC OAGUL ANT note Unles s other heredia noted testi ng [facility]: [facility] [place], [place] [address] [phone] Devan arevalo MD CLIA: [id number] Not Available [facility] (Lab Registration) [address] [place], [address], 02/28/2024 14:13:32 02/21/20 24 02/28/2024 LUPUS ANTIC OAGUL ANT PTT-la TNP sec Test not perfo rmed. Deter iorat ion occur red durin g speci men handl ing. Conta cted Rhond a Baile y 02.27. SENT TO REFER ENCE LAB Not Available [facility] (Lab Registration) [address] [place], [address], 02/28/2024 14:13:32 02/21/20 24 02/28/2024 LUPUS ANTIC OAGUL ANT drvvt TNP Test not perfo rmed SENT TO REFER ENCE LAB Not Available [facility] (Lab Registration) [address] [place], [address], 02/28/2024 14:13:32 02/21/20 24 02/21/2024 urina lysis , dipst ick Leukocytes (reference range) negati ve Not Available [address] [place], [address], 02/21/2024 10:37:14 02/21/20 24 02/21/2024 urina lysis , dipst ick Nitrite (reference range:) negati ve Not Available [address] [place], [address], 02/21/2024 10:37:14 02/21/20 24 02/21/2024 urina lysis , dipst ick Urobilinogen (reference range) 0.2 Not Available [address] [place], [address], 02/21/2024 10:37:14 02/21/20 24 02/21/2024 urina lysis , dipst ick Protein (reference range) negati ve Not Available [address] [place], [address], 02/21/2024 10:37:14 02/21/20 24 02/21/2024 urina lysis , dipst ick pH (reference range 5-8.5) 7.0 Not Available [address] [place], [address], 02/21/2024 10:37:14 02/21/20 24 02/21/2024 urina lysis , dipst ick Blood (reference range:) negati ve Not Available [address] [place], [address], 02/21/2024 10:37:14 02/21/20 24 02/21/2024 urina lysis , dipst ick Specific [place] (reference range) 1.025 Not Available [address] [place], [address], 02/21/2024 10:37:14 02/21/20 24 02/21/2024 urina lysis , dipst ick Ketone (reference range) negati ve Not Available [address] [place], [address], 02/21/2024 10:37:14 02/21/20 24 02/21/2024 urina lysis , dipst ick Bilirubin (reference range) negati ve Not Available [address] [place], [address], 02/21/2024 10:37:14 02/21/20 24 02/21/2024 urina lysis , dipst ick Glucose (reference range) negati ve Not Available [address] [place], [address], 02/21/2024 10:37:14 02/21/20 24 02/21/2024 urina lysis , dipst ick Color (reference range: yellow-brown ) Yellow Not Available [address] [place], [address], 02/21/2024 10:37:14 03/02/20 24 03/02/2024 LUPUS ANTIC OAGUL ANT note Unles s other heredia noted testi ng perfo rmed at: [facility] [address] [place] [address] 859-9 87-36 00 Devan arevalo MD CLIA: [id number] Not Available [facility] (Lab Registration) [address], [place], [address], 03/04/2024 18:09:08 03/02/20 24 03/04/2024 LUPUS ANTIC OAGUL ANT PTT-la 28.6 sec 0.0-43 .5 SENT TO REFER ENCE LAB Not Available [facility] (Lab Registration) [address], [place], [address], 03/04/2024 18:09:08 03/02/20 24 03/04/2024 LUPUS ANTIC OAGUL ANT drvvt 32.3 sec 0.0-47 .0 SENT TO REFER ENCE LAB Not Available [facility] (Lab Registration) [address], [place], [address], 03/04/2024 18:09:08 03/02/20 24 03/04/2024 LUPUS ANTIC OAGUL ANT interpretati on Commen t: No lupus antic oagul ant was detec angella. Perfo rmed at: [facility] [place] king [address] [place] [address] , [place] [address] Lab Direc tor: Marian white MD, Phone : [phone] SENT TO REFER ENCE LAB Not Available [facility] (Lab Registration) [address], [place], [address], 03/04/2024 18:09:08 11/23/19 24 XR, foot No observ ation record ed. [facility] [address] [place] [address] Drive [address], [place], [address], 11/23/2023 09:29:52 04/17/20 24 03/29/2024 home sleep study No observ ation record ed. [facility] (Scheduling) [address] [place], [address], 04/24/2024 10:05:01 05/08/20 24 05/08/2024 XR, shoul wayne [facility] [address] [facility] [place] [address] Phone: Fax: Name: GIUSEPPE JULIO MONTES DE OCA Exam Date: : [birth year] Age 59 years Gender : F Access ion: [id number] Physic sonny: GLORIA HURD [facility] [facility]: [place] Facili ty HSV: Outpat ient Exam: SHLDR 3V LT LEFT SHOULD ER HISTOR Y: Left should er pain for 2 months , no known injury COMPAR NAI: None Three views were obtain ed. There is no acute fractu re or disloc ation. The joint spaces are well preser peri. IMPRES AUGUSTINA: No acute bony abnorm ality. Images were review ed, interp reted and dictat ed by Darian Braga MD Transc ribed by Alejandrina Yousif Dictat ed By: DARIAN BRAGA Transc ribed By: DARIAN BRAGA Transc ribed On: 10:24 AM Electr onical ly signed by: DARIAN BRAGA Thank you for referr ing GIUSEPPE JULIO MONTES DE OCA to [facility]. Legall y authen ticate d by MARIA LUZ MCNEILL MD 05-08 10:24: 56 CC'ed Logic: Orderi ng Provid er: VANNESSA SOLIS CC Provid er: VANNESSA SOLIS Attend ing Provid er: VANNESSA SOLIS Referr ing Provid er: VANNESSA CASTRO NDE Admitt ing Provid er: VANNESSA SOLIS tpardini [facility] (Radiology) [address] [place], [address], 05/08/2024 14:38:01 05/24/20 24 05/23/2024 imagi ng inter preta tion No observ ation record ed. [facility] [address], [place], [address], 05/24/2024 11:13:20 05/24/20 24 05/23/2024 imagi ng inter preta tion No observ ation record ed. [facility] [address], [place], [address], 05/24/2024 11:13:08 07/20/2007/20/2024 imagi ng inter preta tion No observ ation record ed. [facility] [address], [place], [address], 07/20/2024 12:11:28 10/09/20 24 10/08/2024 imagi ng inter preta tion No observ ation record ed. [facility] [address], [place], [address], 10/09/2024 18:54:50 Result Notes Documentation Provider Name and Address Organization Details Recorded Time Xr, Shoulder : [address] [place] [address] Name: ELIUD CHIN Exam Date: 05/08/2024 : 1965 Age 59 years Gender: F Physician: HANDY HURD Facility: [facility] Facility HSV: Outpatient Exam: SHLDR 3V LT LEFT SHOULDER HISTORY: Left shoulder pain for 2 months, no known injury COMPARISON: None Three views were obtained. There is no acute fracture or dislocation. The joint spaces are well preserved. IMPRESSION: No acute bony abnormality. Images were reviewed, interpreted and dictated by Darian Braga MD Transcribed by Alejandrina Yousif Dictated By: DARIAN BRAGA Transcribed By: DARIAN BRAGA Transcribed On: 05/08/2024 10:24 AM Electronically signed by: DARIAN BRAGA 05/08/2024 Thank you for referring ELIUD CHIN to [facility]. Legally authenticated by MARIA LUZ MCNEILL MD 2024-05-08 10:24:56 CC'ed Logic: Ordering Provider: VANNESSA PEOPLES CC Provider: VANNESSA PEOPLES Attending Provider: VANNESSA PEOPLES Referring Provider: VANNESSA PEOPLES Admitting Provider: VANNESSA PEOPLES Shaye [place]ard[place], [place] [facility] [place] 05/08/2024 14:38:01 Problems Name Problem SNOMED Code Status Onset Date Resolution Date Notes Provider Name and Address Organization Details Recorded Time Mixed anxiety and depressive disorder 544749105 Active 2021 Shaye [place] [facility] [place] 2 08:59:53 Hypothyroidism 13034045 Active 2021 Shaye [place] [facility] [place] 2 09:00:00 Insomnia 966238088 Active 2021 Shaye [place] [facility] [place] 2 09:00:06 Restless legs 64159312 Active 2021 Shaye [place] [facility] [place] 2 09:00:13 Attention deficit hyperactivity disorder 003115013 Active 2021 Shaye [place] [facility] [place] 2 09:00:25 Allergic rhinitis 11439030 Active 2021 Shaye [place] [facility] [place] 2 09:00:40 Bipolar disorder 83205639 Active 2021 Shaye [place]ard[place] [facility] [place] 2 09:00:52 Problem Notes None recorded. Procedures Surgical History Date Name Laterality Status Provider Name and Address Organization Details Recorded Time 4 Injection Small Joint [place] completed Crystal Shante, DPM [address], [address], [place], [address], [place] [facility] [place] 11/23/2023 09:28:18 3 completed Inés Flor [place] [facility] [place] 02/15/2024 10:49:53 3 Date of Last Pap Smear completed Inés Flor [place] [facility] [place] 02/15/2024 10:49:53 2 Date of Last Colonoscopy completed Shaye [place] [facility] [place] 09/14/2022 11:47:48 2 Other completed [place]ina Bel[place] [facility] [place] 03/09/2023 09:41:29 2 Colonoscopy [place] [facility] [place] 09/14/2022 11:47:49 8 Other completed [place] [facility] [place] 09/14/2022 11:47:49 7 Sinus Surgery [place] [facility] [place] 09/14/2022 11:47:49 6 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 [employer]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 completed [place]aye [place] [facility] [place] 03/04/2023 11:10:46 4 Other completed [place] [facility] [place] 03/04/2023 11:10:46 2 Manager [employer] Surgery [place] [facility] [place] 03/04/2023 11:10:46 1 Manager [employer] Surgery [place] [facility] [place] 09/14/2022 11:47:49 2 Other completed [place]aye [place] [facility] [place] 09/14/2022 11:47:49 1 Other completed Shaye ABEBE [facility] & [place] 03/04/2023 11:10:46 perinasal sinusotomy completed Johnna ABEBE [facility] & [place] 08/27/2022 13:28:54 Tubal Ligation completed Johnna ABEBE [facility] & [place] 08/27/2022 13:29:01 Carpal tunnel surgery completed Johnna ABEBE [facility] & [place] 08/27/2022 13:29:09 Imaging Results None recorded. Procedure Notes None recorded. Medical Equipment None Reported. Allergies Allergen ID Allergen Name Allergen Category Reaction Reaction Severity Criticality Documentation Date Start Date Code Code System Note Provider Name and Address Organization Details Recorded Time 16978 bacitraci n / neomycin / polymyxin B medicatio n Not available Not available Not available 08/27/2022 96408 9 RxNorm DEQUAN Banerjee [facility] & [place] 2 13:26:32 47198 neomycin medicatio n Not available Not available Not available 08/27/2022 7299 RxNorm DEQUAN Banerjee [facility] & [place] 2 13:26:40 39922 Polyspori n medicatio n Not available Not available Not available 08/27/2022 11001 RxNorm DEQUAN Banerjee [facility] & [place] 2 13:26:46 Medications Name Sig Start Date Stop Date Status Note LastModified by Organization Details LastModified Time celecoxib 200 mg capsule TAKE 1 CAPSULE BY MOUTH TWICE DAILY active Not Available Not Available No t Available amoxicillin 500 mg capsule TAKE 1 CAPSULE BY MOUTH THREE TIMES DAILY FOR 10 DAYS 08/27 completed Not Available Not Available Not Available prednisone 10 mg tablet TAKE 5 TABLETS BY MOUTH ONCE DAILY WITH FOOD FOR 7 DAYS 03/23 completed Not Available Not Available Not Available doxycycline hyclate 100 mg capsule TAKE 1 CAPSULE BY MOUTH TWICE DAILY FOR 10 DAYS 11/23 completed Not Available Not Available Not Available lamotrigine 200 mg tablet TAKE 1 TABLET BY MOUTH DAILY 08/30 completed Not Available Not Available Not Available ropinirole 1 mg tablet 03/23 completed Not Available Not Available Not Available Depo-Medrol 40 mg/mL suspension for injection Take 10 mg by injection route. 02/20 completed Not Available Not Available Not Available oxybutynin chloride ER 10 mg tablet,exte nded release 24 hr TAKE 1 TABLET BY MOUTH EVERY DAY active Not Available Not Available No t Available benzonatate 200 mg capsule 02/20 completed Not Available Not Available Not Available ketotifen 0.025 % (0.035 %) eye drops INSTILL 1 DROP IN BOTH EYES TWICE DAILY NEEDED 08/27 completed Not Available Not Available Not Available hydrocodone 5 mg-acetamin ophen 325 mg tablet TAKE 1 TABLET BY MOUTH EVERY 6 HOURS NEEDED FOR SEVERE PAIN 03/23 completed Not Available Not Available Not Available Synthroid 125 mcg tablet TAKE 1 TABLET BY MOUTH IN THE MORNING active Not Available Not Available No t Available prednisone 20 mg tablet TAKE 2 TABLETS BY MOUTH ONCE DAILY IN AM WITH FOOD FOR 5 DAYS active Not Available Not Available No t Available clonazepam 0.5 mg tablet TAKE 1 TABLET BY MOUTH TWICE DAILY NEEDED FOR SEVERE ANXIETY 03/04 completed Not Available Not Available Not Available estradiol 0.05 mg/24 hr weekly transdermal patch APPLY 1 PATCH TOPICALLY TO THE SKIN 1 TIME A WEEK DIRECTED 08/27 completed Not Available Not Available Not Available medroxyprog esterone 5 mg tablet TAKE 1 TABLET BY MOUTH EVERY DAY active Not Available Not Available No t Available sertraline 100 mg tablet TAKE 1 AND 1/2 TABLETS BY MOUTH DAILY active Not Available Not Available No t Available prednisone 5 mg tablet 08/27 completed Not Available Not Available Not Available omeprazole 40 mg capsule,del ayed release TAKE 1 CAPSULE BY MOUTH EVERY DAY 03/23 completed Not Available Not Available Not Available tramadol 50 mg tablet TAKE 1 TABLET BY MOUTH EVERY 6 HOURS NEEDED 03/23 completed Not Available Not Available Not Available ondansetron 8 mg disintegrat ing tablet DISSOLVE 1 TABLET ON THE TONGUE THREE TIMES DAILY NEEDED FOR NAUSEA OR VOMITING 10/20 completed Not Available Not Available Not Available ketorolac 10 mg tablet TAKE 1 TABLET BY MOUTH EVERY 8 HOURS 10/20 completed Not Available Not Available Not Available dextroamphe tamine-amph etamine 30 mg tablet TAKE 1 TABLET BY MOUTH EVERY MORNING AND EVERY AFTERNOON active Not Available Not Available No t Available meloxicam 7.5 mg tablet 05/08 completed Not Available Not Available Not Available oxycodone-a cetaminophe n 5 mg-325 mg tablet TAKE 1 TABLET BY MOUTH EVERY 6 HOURS NEEDED FOR PAIN active Not Available Not Available No t Available alprazolam 0.5 mg tablet TAKE 2 TABLETS BY MOUTH AT BEDTIME NEEDED AND TAKE 1 TABLET BY MOUTH 3 TIMES DAILY NEEDED DURING THE DAY FOR SEVERE ANXIETY AND PANIC 11/20 completed Not Available Not Available Not Available Adderall XR 30 mg capsule,ext ended release TAKE 1 CAPSULE BY MOUTH EVERY MORNING 08/28 completed Not Available Not Available Not Available ceftriaxone 1 gram solution for injection Take 1 g by injection route. 03/04 completed Not Available Not Available Not Available hydromorpho ne 2 mg tablet TAKE 1 TABLET BY MOUTH EVERY 8 HOURS NEEDED FOR PAIN 10/20 completed Not Available Not Available Not Available famotidine 20 mg tablet 05/08 completed Not Available Not Available Not Available tamsulosin 0.4 mg capsule TAKE 1 CAPSULE BY MOUTH EVERY DAY 10/20 completed Not Available Not Available Not Available baclofen 10 mg tablet 10/20 completed Not Available Not Available Not Available hydrocodone 7.5 mg-acetamin ophen 325 mg tablet TAKE 1 TABLET BY MOUTH EVERY 6 HOURS NEEDED 10/20 completed Not Available Not Available Not Available dextroamphe tamine-amph etamine 20 mg tablet TAKE 1 TABLET BY MOUTH TWICE DAILY 08/27 completed Not Available Not Available Not Available prednisone 50 mg tablet TAKE 1 TABLET BY MOUTH EVERY DAY 03/23 completed Not Available Not Available Not Available naproxen 500 mg tablet,ana rosa yed release TAKE 1 TABLET BY MOUTH TWICE DAILY NEEDED FOR PAIN 10/20 completed Not Available Not Available Not Available promethazin e 25 mg tablet 03/23 completed Not Available Not Available Not Available gabapentin 300 mg capsule TAKE 1 CAPSULE BY MOUTH TWICE DAILY active Not Available Not Available No t Available estradiol 2 mg tablet TAKE 1 TABLET BY MOUTH DAILY active Not Available Not Available No t Available montelukast 10 mg tablet TAKE 1 TABLET BY MOUTH EVERY DAY AT BEDTIME active Not Available Not Available No t Available mupirocin 2 % topical ointment APPLY A SMALL AMOUNT TO AFFECTED AREA TWICE A DAY 10/20 completed Not Available Not Available Not Available zolpidem 5 mg tablet 03/23 completed Not Available Not Available Not Available Synthroid 112 mcg tablet 03/23 completed Not Available Not Available Not Available hydroxychlo roquine 200 mg tablet TAKE 1 TABLET BY MOUTH EVERY DAY active Not Available Not Available No t Available levofloxaci n 500 mg tablet TAKE 1 TABLET BY MOUTH EVERY 24 HOURS DIRECTED FOR 7 DAYS active Not Available Not Available No t Available zolpidem 10 mg tablet TAKE 1 TABLET BY MOUTH AT BEDTIME NEEDED FOR SLEEP active Not Available Not Available No t Available methylpredn isolone 4 mg tablets in a dose pack FOLLOW PACKAGE DIRECTION S 11/23 completed Not Available Not Available Not Available albuterol sulfate HFA 90 mcg/actuati on aerosol inhaler INHALE 2 PUFFS BY MOUTH EVERY 6 HOURS NEEDED FOR COUGHING AND WEEZING active Not Available Not Available No t Available propranolol 20 mg tablet TAKE 1 TABLET BY MOUTH TWICE DAILY NEEDED FOR TREMORS active Not Available Not Available No t Available ondansetron 4 mg disintegrat ing tablet DISSOLVE 1 TABLET ON THE TONGUE EVERY 8 HOURS NEEDED FOR NAUSEA 08/27 completed Not Available Not Available Not Available fluticasone propionate 50 mcg/actuati on nasal spray,suspe nsion USE 2 SPRAY(S) IN EACH NOSTRIL ONCE DAILY DIRECTED active Not Available Not Available No t Available lamotrigine 100 mg tablet TAKE 1 TABLET BY MOUTH DAILY 08/27 completed Not Available Not Available Not Available risperidone 0.5 mg tablet 09/12 completed Not Available Not Available Not Available naproxen 500 mg tablet 03/23 completed Not Available Not Available Not Available amoxicillin 875 mg-potassiu m clavulanate 125 mg tablet TAKE 1 TABLET BY MOUTH EVERY 12 HOURS FOR 7 DAYS 10/20 completed Not Available Not Available Not Available ropinirole 4 mg tablet TAKE 1 TABLET BY MOUTH EVERY DAY 2024 active Not Available Not Available Not Avai lable topiramate 50 mg tablet TAKE 1 TABLET BY MOUTH EVERY MORNING AND 2 TABLETS EVERY EVENING active Not Available Not Available No t Available nitrofurant oin monohydrate /macrocryst als 100 mg capsule active Not Available Not Available Not Available levocetiriz ine 5 mg tablet TAKE 1 TABLET BY MOUTH EVERY DAY DIRECTED 2024 active Not Available Not Available Not Avai lable lisdexamfet amine 60 mg capsule TAKE 1 CAPSULE BY MOUTH ONCE DAILY ADHD 05/08 completed Not Available Not Available Not Available lisdexamfet amine 40 mg capsule 02/20 completed Not Available Not Available Not Available Solu-Medrol (PF) 125 mg/2 mL solution for injection Take 125 mg by injection route. 03/04 completed Not Available Not Available Not Available Vraylar 1.5 mg capsule TAKE 1 CAPSULE BY MOUTH ONCE DAILY active Not Available Not Available No t Available Clenpiq 10 mg-3.5 gram-12 gram/160 mL oral solution FOLLOW DIRECTION S MAILED TO YOUR HOME 08/27 completed Not Available Not Available Not Available Ajovy 225 mg/1.5 mL subcutaneou s auto-inject or INJECT 1.5ML EVERY MONTH SUBCUTANE OUSLY 05/08 completed Not Available Not Available Not Available BinaxNOW COVID-19 Ag Self Test kit TEST DIRECTED TODAY 08/27 completed Not Available Not Available Not Available Paxlovid 300 mg (150 mg x 2)-100 mg tablets in a dose pack FOLLOW PACKAGE DIRECTION S 10/20 completed Not Available Not Available Not Available Miebo (PF) 100 % eye drops INSTILL 1 DROP INTO BOTH EYES 4 TIMES A DAY (EVERY 6 HOURS) . BOTTLE PREPARATI ON IS REQUIRED. REFER TO PACKAGE INSERT FOR SPECIAL PREPARATI O 05/08 completed Not Available Not Available Not Available Vitals Date Recorded Body height Body mass index (BMI) Body weight Body temperature Oxygen saturation Oxygen saturation in Arterial blood by Pulse oximetry Heart rate Respiratory rate Systolic blood pressure Diastolic blood pressure Provider Name and Address Organization Details Last Updated DateTime 4 165.1 cm 27 kg/m2 13746.6 8 g 97.3 [degF] 99 % 99 % 75 /min 16 /min 126 mm[Hg] 79 mm[Hg] Shaye Rock [place] - [facility] [place] 4 10:33:25 Date Recorded Body height Body mass index (BMI) Body weight Body temperature Provider Name and Address Organization Details Last Updated DateTime 02/29/2024 165.1 cm 27 kg/m2 21469.96 g 97.8 [degF] Morena Mcnamara [facility] & [place] 02/29/2024 16:14:11 Date Recorded Body height Body mass index (BMI) Body weight Body temperature Oxygen saturation Oxygen saturation in Arterial blood by Pulse oximetry Heart rate Respiratory rate Systolic blood pressure Diastolic blood pressure Provider Name and Address Organization Details Last Updated DateTime 165.1 cm 26.3 kg/m2 60519.5 9 g 97.5 [degF] 99 % 99 % 79 /min 16 /min 109 mm[Hg] 74 mm[Hg] Shaye Rock [facility] & [place] 08:52:19 Social History Question Answer Notes LastModified by [employer] Details LastModified Time Tobacco Smoking Status Former Smoker Johnna Earl [facility] & [place] 08/27/2022 13:28:46 Do You Have An Advance Directive? No Information not available 09/14/2022 Are You Blind Or Do You Have Difficulty Seeing? Yes [email or web address] Information not available 03/09/2023 When Did You Quit Smoking? 16+yearssinc elastcigaret te Information not available 10/20/2023 What Was The Date Of Your Most Recent Tobacco Screening? 11/20/2023 [email or web address] Information not available 02/15/2024 Are You Passively Exposed To Smoke? No Information not available 09/14/2022 How Much Tobacco Do You Smoke? 2 PPD Information not available 09/14/2022 How Many Years Have You Smoked Tobacco? 20 Information not available 09/14/2022 Sex: Unknown Functional Status Question Answer Note LastModified by Organizat ion Details LastModified Time Do you use any illicit or recreational drugs? No Information not available 09/14/2022 What is your level of alcohol consumption? Occasional Information not available 09/14/2022 Do you or have you ever used smokeless tobacco? 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 None Information not available 09/14/2022 Mental Status Question Answer Note LastModified by Organization D etails LastModified Time Do you feel stressed (tense, restless, nervous, or anxious, or unable to sleep at night)? [id number] [email or web address] Information not available 02/15/2024 Family History Relationship Description Onset Age of this Age Resolved Age Notes LastModified by Organization Details LastModified Time Father No current problems or disability [email or web address] Not available 02/20 10:18:24 Father Hearing loss pt. added direct ly (08/27) [email or web address] Not available 08/27/2022 20:57:34 Father Sleep disorder pt. added direct ly (08/27) [email or web address] Not available 08/27/2022 20:59:49 Mother No current problems or disability [email or web address] Not available 02/20 10:18:25 Mother Autoimmune disease pt. added direct ly (08/27) [email or web address] Not available 08/27/2022 20:56:25 Mother Disease of liver pt. added direct ly (08/27) [email or web address] Not available 08/27/2022 20:56:52 Mother Headache pt. added direct ly (08/27) [email or web address] Not available 08/27/2022 20:57:04 Mother Hearing loss pt. added direct ly (08/27) [email or web address] Not available 08/27/2022 20:57:34 Mother Liver problem pt. added direct ly (08/27) [email or web address] Not available 08/27/2022 20:59:01 Mother Osteoporosis pt. added direct ly (08/27) [email or web address] Not available 08/27/2022 20:59:24 Mother Cerebrovascu lar accident pt. added direct ly (08/27) [email or web address] Not available 08/27/2022 21:00:16 Mother Disorder of thyroid gland pt. added direct ly (08/27) [email or web address] Not available 08/27/2022 21:00:37 Sister Autoimmune disease pt. added direct ly (08/27) [email or web address] Not available 08/27/2022 20:56:25 Sister Rheumatoid arthritis pt. added direct ly (08/27) [email or web address] Not available 08/27/2022 20:59:35 Maternal Aunt Autoimmune disease pt. added direct ly (08/27) [email or web address] Not available 08/27/2022 20:56:25 Maternal Aunt Liver problem pt. added direct ly (08/27) [email or web address] Not available 08/27/2022 20:59:01 Unspecified Relation Headache pt. added direct ly (08/27) [email or web address] Not available 08/27/2022 20:57:18 Unspecified Relation Cerebrovascu lar accident pt. added direct ly (08/27) [email or web address] Not available 08/27/2022 21:00:16 Paternal Uncle Myocardial infarction pt. added direct ly (08/27) [email or web address] Not available 08/27/2022 20:58:01 Maternal Grandfather Liver problem pt. added direct ly (08/27) [email or web address] Not available 08/27/2022 20:59:01 Maternal Grandfather Substance abuse pt. added direct ly (08/27) [email or web address] Not available 08/27/2022 21:01:01 Paternal Aunt Cerebrovascu lar accident pt. added direct ly (08/27) [email or web address] Not available 08/27/2022 21:00:16 Medical History Condition Response Other Y Ear or Hearing Problems Y Thyroid Problems Y Hypothyroidism Y Autoimmune disease Y Arthritis Y Back Problems Y High Cholesterol Y Psychiatric/Mental Health Condition Y Headaches Y Gynecological History Statement/Question Response Abnormal Pap Y 07/17/2023 Date of Last Colonoscopy 10/17/2021 Date of LMP 10/17/2017 Sexually Active? N Menses Monthly N Date of Last Pap Smear 06/17/2023 Current Control Method None Age at Menarche 53 Obstetrics History GPAL:G 0 P 0 0 0 0 Immunizations Vaccine Type Date Status Note Provider Nam e and Address Organization Details Recorded Time Td (adult), 2 Lf tetanus toxoid, preservative free, adsorbed 1 completed Shaye nolan, [place] - [facility] & [place] 10/20/2022 09:53:50 COVID-19, mRNA, LNP-S, PF, 30 mcg/0.3 mL dose 1 completed Shaye Kayejudith an, [place] - [facility] [place] 10/20/2022 09:53:50 COVID-19, mRNA, LNP-S, PF, 30 mcg/0.3 mL dose 1 completed Shaye Kayedini an, [place] - [facility] [place] 10/20/2022 09:53:50 Past Encounters Encounter ID Performer Location Encounter Start Date Encounter Closed Date Diagnosis/Indication Diagnosis SNOMED-CT Code Diagnosis ICD10 Code Diagnosis Note [id number] Handy Hurd MD [address] [address] 08/30/2022 08:41:58 08/30/2022 11:51:00 Nausea 332284032 R11.0 WILL OBTAIN A GALLBLADDE R ULTRASOUND . I WILL ALSO ORDER LAB WORK. I AM STARTING PATIENT ON OMEPRAZOLE . labs drawn by Ventura GUADALUPE Allergic rhinitis 087979 04 J30.9 PATIENT TO CONTINUE WITH CURRENT THERAPY. Hypothyroidism 86460993 E03.9 [id number] Handy Hurd MD [address] [address] 09/14/2022 11:36:05 09/14/2022 14:38:58 Kidney stone 06924253 N20.0 [id number] MD franco Moorez[address] [address] 10/20/2022 09:41:30 10/20/2022 10:47:28 Congestion of nasal sinus 23340723 R09.81 NEGATIVE FOR FLU A COVID Acute sinusitis 53962580 J01.90 Hypothyroidism 12033545 E03.9 PATIENT IS BEING SEEN BY ENDOCRINOL OGIST. SHE IS REQUESTING A REFERRAL TO BE SENT TO HER ENDOCRINOL OGIST. FOR CONTINUED MANAGE OF A THYROID DYSFUNCTIO N [id number] Handy Hurd MD [address] [place] [address] 03/04/2023 10:57:45 03/04/2023 11:24:06 Costal chondritis 56317542 M94.0 patient was sent home with no medication . I am putting her on a course of prednisone with some tramadol to take as needed. Patient has been instructed to follow-up in 2 weeks should she still have pain. Chung ross injury of chest 258581832 S20.303A treated as described below. [id number] Handy Hurd MD [address] [place] [address] 03/23/2023 14:04:52 03/23/2023 14:52:23 Hypothyroidism 92842622 E03.9 blood drawn in the right AC by Shaye Rock CMA, patient tolerated well. Adult heal th examination 586382922 Z00.00 Patient presents for annual physical exam. Exam appears to be unremarkab le except for right elbow pain Injury of elbow 05849303 4 S59.901A pt contnues to complain of pain in the rt elbow Diabetes m ellitus screening 968727900 Z13.1 Hyperlipid emia screening 967745672 Z13.220 [id number] Handy Hurd MD [address] [place] [address] 10/20/2023 14:01:33 10/20/2023 14:37:33 Pain of toe of right foot 6541637949 65409 M79.674 will obtain x-rays, refer patient to podiatry. Acute sinusitis 38271921 J01.90 Will treat with antibiotic s as well as steroids. [id number] Elva Frey DPM [facility] [address] [place] [address] [place] [id number] 11/23/2023 08:37:16 11/23/2023 09:15:50 Pain in right foot 5976453676 96617 M79.671 Radiograph s performed today. Findings reviewed and discussed with patient.Di scussed benefit of increased support with ambulation . Demonstrat ed power step inserts in office today. Explained patient would need to remove prefab liners from shoes and replace with arch support. Consider custom inserts pending progress.C ounseled regarding potential benefit of anti-infla mmatories to reduce symptoms. Discussed varieties available including topical forms, OTC and prescripti on options and natural remedies including risks and benefits of each. Also provided recommenda tions for dosing. Metatarsal pj of right foot 0365440819 24285 M77.41 Patient consents for steroid injection right 1st MPJ today. Continue appropriat e shoe gear and anti-infla mmatories. Methylpred nisolone Acetate 400mg per 10ml. Lot#[id number] . [facility]# [id number]. Expiration 04/10. Arthritis of right foot 8232625218 868952 M13.871 [id number] Elva Frey DPM [facility] [address] [place] [address],[facility] [address] [place] [address] 11/23/2023 09:13:05 11/23/2023 09:40:06 Foot pain 46710002 M79.673 Patient elects to purchase Power Step Slender Fit inserts today. Provided instructio ns for use. Patient aware this is a self pay item. [id number] Handy Hurd MD [address] [place] [address] 02/21/2024 10:18:14 02/21/2024 10:50:26 Fatigue 42904853 R53.83 patient is worried that she might have lupus. will order baseline lab work today.will refer patient to rheumatolo jose juan for evaluation . Dysuria 33897479 R30.0 urine appears clear. [id number] Jonathan Crooks MD [facility] [place] [address] [place] [address] 02/29/2024 16:12:54 02/29/2024 16:47:16 Hypersomnia 19728198 G47.10 Martitain jeff presentati on. She is describing excessive REM sleep affecting her sleep hygiene. Numerous medication s related to her psychiatri c issues which can be affecting her sleep architectu re as well. She does not give me a classic picture for narcolepsy . I think she would be best served by in-lab polysomnog krystian to document REM sleep and see what is going on. Suspicious for REM sleep behavior disorder. 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 [id number] Handy Hurd MD [facility] [address] [place] [address] 05/08/2024 08:43:49 05/08/2024 10:19:23 Pain of left shoulder joint 4952896312 1223490 M25.512 Health Concerns Section Related Observation LastModified by Organization Detai ls LastModified Time None Recorded Concern Status LastModified by Organization Details LastModified Time None Recorded Advance Directives Directive N: Payers Insurance Date Sequence Insurance Name Policy Number Policy Boone Covered Member ID Boone Member ID Guarantor Name 05/05/2024 1 [employer] [id number] 1 Eliud Chin [id number] Eliud Chin 05/07/2024 1 [place] [id number] 1 Eliud Giuseppe [id number] Eliud Chin Notes Date Note Type Note Provider Name and Address Organization Details Recorded Time 11/23/2023 text/html patient presents for treatment of right foot pain. She points to her 1st MPJs area of pain. She admits she has been having pain for over a year without specific injury. She admits her symptoms come and go but can be severe at times. She admits to history of Sjogren's. she denies specific treatment for this symptom. She denies h/o gout.New patient referred by PCP, Dr. Hurd. Elva Frey DPM [address] [place] [address], [address], [place], [address], [facility] - [facility] & [place] 11/23/2023 09:42:34 11/23/2023 text/html Patient would li ke to purchase Power Step Slender Fit Inserts today. Elva Frey DPM [address], [address], [place], [address], [place] - [facility] & [place] 11/23/2023 11:25:30 02/21/2024 text/html Patient presents today complaining of a one-week history or symptoms suggestive of a UTI. She states that she took azo and her symptoms have improved. She is also complaining of excessive fatigue. She is wondering whether she could have lupus. There maybe a family history. Handy Hurd MD [address] [place], [address], [place] - [facility] & [place] 02/21/2024 12:00:39 02/29/2024 text/html Patient consents for sleep video medicine consultation. Her primary care provider has recommended evaluation for persistent and severe hypersomnia. Patient has numerous psychiatric problems including but not limited to bipolar disorder, attention deficit disorder, insomnia and restless leg. She reports issues with profound daytime sedation. She reports she sleeps at night but she is hindered by excessive dreaming. She reports most of the night spent in his dream state and she is unable to rest peacefully .she reports some issues with sleep paralysis as well. She reports restless leg symptoms. Her [place] sleepiness scale is 6/24. Her BMI is less than 30. She is on numerous psychiatric medications which can affect her sleep architecture but seems to be doing relatively well from a psychiatric standpoint on these medications. She denies any cataplexy symptoms. Jonathan Crooks MD [address] [facility], [place], [address], [place] - [facility] & [place] 02/29/2024 16:45:26 05/08/2024 text/html Patient presents with a two-month history of left shoulder pain. Handy Hurd MD [address] [place], [address], [place] - [facility] & [place] 05/08/2024 16:26:38 OBGyn Episode No OBEpisode recorded.
--- OUTSIDE RECORDS SUMMARY | 2025-04-08 14:03 | XMS_ITS | Patient Health Record ---
Author Organization [facility] Address [address] [place] [address] Care Team Providers Care Business Operations Director Name Role Phone Mary Watts Unavailable [phone] Allergies Allergen (clinical drug ingredient) Drug/Non Drug Allergy documented on EMR Reaction Allergy Type Onset Date Status erythromycin Erythromycin rash Drug Allergy A ctive bacitracin / neomycin / polymyxin B NEOSPORIN ORIGINAL rash Drug Allergy 02/21/2014 Active bacitracin / polymyxin B POLYSPORIN (uncoded) rash Allergy 02/21/2014 Active Results Component Value Reference Range Notes *Screen Mammo b/l w/ Josue an d US if needed per protocol Reviewed date:05/28/2024 01:10:22 PM Interpretation: Performing Lab: Notes/Report: Pap w/reflex HPV Reviewed date:08/14/2024 08:19:52 PM Interpretation: Performing Lab:[facility] [place] CLIA ID [id number], [id number] [facility] [address] [address] [facility] [address], [address], [place] [address], Director - Carola Toscano MD Notes/Report: Any Nucleic Acid Amplification testing is performed on the [employer] [place]. Diagnosis: Negative for intraepithelial lesion or malignancy. AP results Clinical Psychology Teacher LMP: unknown Pertinent Clinical History/History of Surgery: Not provided CPT Codes: 26165 Satisfactory for interpretation with endocervical/transformat ion zone component present. Gilda James FINAL BOTTLE WASHER CYTOLOGY REPORT Screening note: This specimen has been analyzed by the [employer] System, an interactive computer system which assists the lab in screening of ThinPrep Pap Test slides. Following imaging, the slide was reviewed by a Clinical Psychology Teacher and/or Pathologist. Other Gynecological Patient Information: Not provided Results of Last Pap: Not provided Negative for intraepithelial lesion or malignancy. Specimen Source: Cervical/Endocervical Negative Educational Note: The pap screening test aids in the detection of premalignant and malignant states of the cervix. False positive and negative results may occur. It is not a diagnostic test. If abnormal cells are reported, follow-up based on current clinical guidelines and/or clinical consideration is recommended. DIAGNOSIS: Date of Last Pap: Not provided Specimen Adequacy: ICD Codes: Z01.419 Collection Technique: [place]-Spatula Specimen Type: ThinPrep Recommendation: Follow-up based on current clinical guidelines and/or clinical consideration. Reason For Referral No Information Medications Medication SIG (Take, Route, Frequency, Duration) Notes Start Date End Date Status Estradiol 2 MG Tablet 1 tablet Orally On ce a day; Duration: 90 days 11/09/2024 Active medroxyPROGESTERone Acetate 5 MG Tablet TAKE 1 TABLET BY MOUTH EVERY DAY; Duration: 90 Active Levocetirizine Dihydrochlori de 5 MG Tablet Oral; Duration: 90 Active Ambien Active adderal Active Zoloft Active Hydroxychloroquine Sulfate 2 00 MG Tablet TAKE 1 TABLET BY MOUTH EVERY DAY Diagnosis Unavailable Oral; Duration: 90 Active Estradiol 2 MG Tablet 1 tablet Orally On ce a day; Duration: 90 days Active Synthroid 125 MCG Tablet 1 tablet in the morning on an empty stomach Orally Once a day Active Requip Active Vraylar Active Topamax 50 MG Tablet 1 tablet Orally Onc e a day Active Montelukast Sodium 10 MG Tablet TAKE 1 TABLET BY MOUTH EVERY NIGHT Oral; Duration: 90 Active Social History Sex Assigned At : Social History Observation Description Sex Assigned At Female Social History Drugs/Alcohol: Social Info Question Answer Notes Drugs Have you used drugs other than those for medical reasons in the past 12 months? No Alcohol Screen Did you have a drink containing alcohol in the past year? Yes How often did you have a drink containing alcohol in the past year? 4 or more times a week (4 points) How many drinks did you have on a typical day when you were drinking in the past year? 1 or 2 drinks (0 point) How often did you have 6 or more drinks on one occasion in the past year? Never (0 point) Points 4 Interpretation Positive Problems Problem Type SNOMED Code ICD Code Onset Dates Problem Status W/U Status Risk Notes Problem Gynecological examination normal (105006564869463) Cervical smear, as part of routine gynecological examination (Z01.419) 020 Active confirmed Annual without abnormal findings Problem Postmenopausal bleeding (19412048) Abnormal vaginal bleeding in postmenopausal patient (N95.0) Active confirmed Problem Postmenopausal bleeding (77447370) Postmenopausal bleeding (N95.0) Active confirmed Vital Signs Heart Rate 110 /min 08/08/2024 Blood pressure diastolic 62 mm Hg 08/08/2024 Oximetry 99 % 08/08/2024 Height 65 in 08/08/2024 Blood pressure systolic 100 mm Hg 08/08/2024 Weight 151.0 lbs 08/08/2024 BMI 25.12 kg/m2 08/08/2024 Encounters Encounter Location Date Provider Diagnosis [facility] [address] [address] 04/25/2024 Mary Watts Encounter for screen ing for malignant neoplasm of breast Z12.31 [facility] [address] [facility] [facility] [address] [place] [address] 11/08/2024 Mary Watts Decreased libido R68 .82 [facility] [address] [facility] [facility] [address] [place] [address] 08/08/2024 Mary Watts Cervical smear, as p art of routine gynecological examination Z01.419 and Decreased libido R68.82 Assessments Encounter Date Diagnosis (ICD Code) Assessment Notes Treatment Notes Treatment Clinical Notes Section Notes 08/08/2024 Decreased libido (ICD-10 - R68.82) 08/08/2024 Cervical smear, as part of routine gynecological examination (ICD-10 - Z01.419) 04/25/2024 Encounter for screening for malignant neoplasm of breast (ICD-10 - Z12.31) 11/08/2024 Decreased libido (ICD-10 - R68.82) Plan Of Treatment Next Appt Details Provider Name:Mary Watts, 08/09/2025 10:15:00 AM, [address] [facility] [address], [place], [address], Insurance Providers Payer Name Payer Address Payer Phone Subscriber Number Group Number Insured Name Patient Relationship to Insured Coverage Start Date Coverage End Date [employer] PPO [address] [place] [address] [id number] Zena Chin Self - patient is the insured Medical (General) History Medical History History ICD Code depression migraines hashimotos RLS Sjogrens s anxiety arthritis hypothyroidism Surgical History Surgery Date(Month/Year) carpal tunnel tubal LEEP of cervix septoplasty blepharoplasty breast biopsy Hospitalization History Reason Date(Month/Year) blepharoplasty septoplasty tubal carpal tunnel
--- OUTSIDE RECORDS SUMMARY | 2025-04-08 14:04 | XMS_ITS | Data Portability ---
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 Oxybutynin for medical management of lower urinary symptoms. [email or web address] Not available 07/08/2024 17:54:34 07/26/2024 07/26/2024 Oxybutynin for medical management of lower urinary symptoms. Urine for culture. [email or web address] Not available 08/05/2024 23:11:21 11/29/2024 11/29/2024 Oxybutynin for medical management of lower urinary symptoms. Monitor KUB for small nonobstructing renal stone. She does take Topamax for migraines. [email or web address] Not available 12/09/2024 20:13:20 Plan of Treatment Reminders Order Date Submit Date Provider Last Modified By Organization Details Last Modified Time Details Appointments RECHECK 2024 03:15P M BERNABE BEARD APRN Not available Not available Not available RECHECK 2024 01:15P M ROXANE BEARD MD Not available Not available Not available RHEUM RECHECK 2024 03:30P M EMILY KNOWLES MD Not available Not available Not available Lab urinalysi s panel, auto 2024 025 [email or web address] 4 [facility] [place] Extended Services With [facility], [address] [place] [address] Dr Sanchez, [place], [address], 12/09/2024 20:13:21 [email or web address] antibody panel, serum 2023 [facility], [address] [place] [address], [address], 09/19/2024 15:33:54 EMILEE (antinucl ear antibodie s) panel, serum 2023 [facility], [address] [place] [address], [address], 09/19/2024 18:55:56 CBC w/ auto diff 2023 [facility], [address] [place] [address], [address], 09/17/2024 11:23:47 creatinin e, serum or plasma 2023 [facility], [address] [place] [address], [address], 09/17/2024 11:14:08 ALT (alanine aminotran sferase), serum or plasma 2023 [facility], [address] [place] [address], [address], 09/17/2024 11:13:58 AST/SGOT (aspartat e aminotran sferase), serum or plasma 2023 024 [facility], [address] [place] [address], [address], 09/17/2024 11:14:05 ESR (erythroc yte sedimenta tion rate), blood 2023 [facility], [address] [place] [address], [address], 09/17/2024 12:32:41 GFR, estimated (eGFR), serum 2023 024 [facility], [address] [place] [address], [address], 09/17/2024 11:13:53 CK (creatine kinase), total, serum 2023 024 [facility], [address] [place] [address], [address], 09/17/2024 11:13:56 magnesium , QN, serum or plasma 2023 024 [facility], [address] [place] [address], [address], 09/17/2024 11:14:03 anca, serum 2023 024 [facility], [address] [place] [address], [address], 09/19/2024 14:34:57 myelopero xidase Ab + proteinas e 3 panel, serum 2023 024 [facility], [address] [place] [address], [address], 09/19/2024 15:33:38 C reactive protein, QN, serum or plasma 2023 024 [facility], [address] [place] [address], [address], 09/17/2024 11:14:00 culture, urine 2023 [email or web address] [facility], [address] [place] [address], [address], 08/01/2024 08:08:53 urinalysi s panel, auto 2023 024 [email or web address] 4 [facility] [place] Extended Services With [facility], [address] [place] [address] Dr Sanchez, [place], [address], 08/01/2024 08:08:53 culture, urine 2023 024 [email or web address] [facility], [address] [place] [address], [address], 06/25/2024 16:10:16 urinalysi s panel, auto 2023 024 4 [facility] Services With [facility], [address] [place] [address] Dr Sanchez, [place], [address], 06/21/2024 16:21:01 TSH, serum or plasma 2023 024 [facility], [address] [place] [address], [address], 05/09/2024 11:47:20 T4, free, serum 2023 024 [facility], [address] [place] [address], [address], 05/09/2024 11:47:22 T3, free, serum or plasma 2023 024 [facility], [address] [place] [address], [address], 05/09/2024 11:47:18 cortisol, serum or plasma 2023 024 [facility], [address] [place] [address], [address], 05/09/2024 11:47:23 Referral None recorded. Procedures None recorded. Surgeries None recorded. Imaging None recorded. Medication Orders hydroxych loroquine 200 mg tablet 2023 024 [id number], [address], [id number], 09/17/2024 09:55:50 oxybutyni n chloride ER 10 mg tablet,ex tended release 24 hr 2023 024 [email or web address] 4 [facility][id number], [address], [id number], 08/01/2024 08:08:53 oxybutyni n chloride ER 10 mg tablet,ex tended release 24 hr 2023 024 [place] [facility] #[id number], [address], [id number], 06/21/2024 16:21:34 Patient TargetsNo targets recorded. Patient Instructions Encounter Date Encounter Id Patient Instructions Last Modified By Organization Details Last Modified Time 05/09/2024 [id number] Patient was instructed on the appropriate method of levothyroxine administration. Take this medication every morning on an empty stomach 30-60 minutes prior to other food, drinks or medications. PPI and calcium-containing preparations are preferred to be given at least four hours before or after levothyroxine therapy. [email or web address] Not available 05/08/2024 07:46:52 06/21/2024 [id number] learning about healthy weight [email or web address] Not available 06/21/2024 16:20:59 07/26/2024 [id number] learning about healthy weight [email or web address] Not available 08/01/2024 08:08:53 11/29/2024 [id number] learning about healthy weight [email or web address] Not available 12/09/2024 20:13:21 Reason for Referral None Reported. Results Created Date Observation Date Name Description Value Unit Range Abnormal Flag Note LastModifiedBy Organization Detail LastModifiedTime 05/09/2005/09/2024 T3 FREE T3 free 2.45 pg/mL 2.00-4 .40 normal Not Available [facility] [address] [place], [address], 05/09/2024 11:47:18 05/09/20 24 05/09/2024 TSH TSH 0.714 u[IU] /mL 0.270- 4.200 normal Not Available [facility] [address] [place], [address], 05/09/2024 11:47:20 05/09/20 24 05/09/2024 T4,FR EE T4,free 1.43 NG/dL 0.93-1 .70 normal Not Available [facility] [address] [place] [address], [address], 05/09/2024 11:47:22 05/09/20 24 05/09/2024 CORTI FRANCISCA cortisol 17.70 ug/dL 2.68-1 8.40 normal CORTI FRANCISCA OSMANY L RANGE S: 6 am to 10 am 6.02 - 18.4 ug/dL 4 pm to 8 pm 2.68 - 10.5 ug/dL . Not Available [facility] [address] [place] [address], [address], 05/09/2024 11:47:23 06/21/20 24 06/21/2024 URINE CULTU RE escherichia coli Organi sm: Escher ichia coli Not Available [facility] [address] [place], [address], 06/23/2024 17:29:46 06/21/2006/23/2024 URINE CULTU RE urine culture abnormal ISOLA TE #1 COLON Y COUNT : > 100,0 00 CFU/M L Proba ble Gram Negat crhistel Bacil medina. ID and sensi tivit y in progr ess. See [place] te Resul t(s) Below Esche rochelle a coli Not Available [facility] [address] [place] [address], [address], 06/23/2024 17:29:46 06/21/2006/23/2024 URINE CULTU RE amox/K clav'ate(C) >16/8 ug/mL resistant Not Available [facility] [address] [place], [address], 06/23/2024 17:29:46 06/21/20 24 06/23/2024 URINE CULTU RE ampicillin >16 ug/mL resistant Not Available [facility] [address] [place] [address], [address], 06/23/2024 17:29:46 06/21/20 24 06/23/2024 URINE CULTU RE cefazolin >16 ug/mL resistant Not Available [facility] [address] [place] [address], [address], 06/23/2024 17:29:46 06/21/20 24 06/23/2024 URINE CULTU RE ceftazidime <=1 ug/mL susceptib le Not Available [facility] [address] [place] [address], [address], 06/23/2024 17:29:46 06/21/20 24 06/23/2024 URINE CULTU RE ceftriaxone <=1 ug/mL susceptib le Not Available [facility] [address] [place] [address], [address], 06/23/2024 17:29:46 06/21/20 24 06/23/2024 URINE CULTU RE cefuroxime 16 ug/mL intermedi ate Not Available [facility] [address] [place] [address], [address], 06/23/2024 17:29:46 06/21/20 24 06/23/2024 URINE CULTU RE ciprofloxaci n <=0.25 ug/mL susceptib le Not Available [facility] [address] [place] [address], [address], 06/23/2024 17:29:46 06/21/20 24 06/23/2024 URINE CULTU RE gentamicin <=4 ug/mL susceptib le Not Available [facility] [address] [place] [address], [address], 06/23/2024 17:29:46 06/21/20 24 06/23/2024 URINE CULTU RE imipenem <=1 ug/mL susceptib le Not Available [facility] [address] [place] [address], [address], 06/23/2024 17:29:46 06/21/20 24 06/23/2024 URINE CULTU RE levofloxacin <=0.5 ug/mL susceptib le Not Available [facility] [address] [place] [address], [address], 06/23/2024 17:29:46 06/21/20 24 06/23/2024 URINE CULTU RE nitrofuranto in <=32 ug/mL susceptib le Not Available [facility] [address] [place] [address], [address], 06/23/2024 17:29:46 06/21/20 24 06/23/2024 URINE CULTU RE piperacillin /juan <=16 ug/mL susceptib le Not Available [facility] [address] [place] [address], [address], 06/23/2024 17:29:46 06/21/20 24 06/23/2024 URINE CULTU RE tetracycline >8 ug/mL resistant Not Available [facility] [address] [place] [address], [address], 06/23/2024 17:29:46 06/21/20 24 06/23/2024 URINE CULTU RE tobramycin <=2 ug/mL susceptib le Not Available [facility] [address] [place] [address], [address], 06/23/2024 17:29:46 06/21/20 24 06/23/2024 URINE CULTU RE trimeth/sulf a <=2/38 ug/mL susceptib le Not Available [facility] [address] [place] [address], [address], 06/23/2024 17:29:46 06/21/20 24 06/21/2024 urina lysis panel , auto Unknown Analyte Clean Catch Not Available [facility] [place] Extended Services With [address] [place], [address], 06/21/2024 16:03:31 06/21/20 24 06/21/2024 urina lysis panel , auto Unknown Analyte Yellow Not Available [facility] Extended Services With [address] [place], [address], 06/21/2024 16:03:31 06/21/20 24 06/21/2024 urina lysis panel , auto Unknown Analyte Clear Not Available [facility] Extended Services With [address] [place], [address], 06/21/2024 16:03:31 06/21/20 24 06/21/2024 urina lysis panel , auto Unknown Analyte 1.020 Not Available [facility] Extended Services With [address] [place], [address], 06/21/2024 16:03:31 06/21/20 24 06/21/2024 urina lysis panel , auto Unknown Analyte 1.003- 1.035 Not Available [facility] Extended Services With [address] [place], [address], 06/21/2024 16:03:31 06/21/20 24 06/21/2024 urina lysis panel , auto Unknown Analyte 5.0 Not Available [facility] Extended Services With [address] [place], [address], 06/21/2024 16:03:31 06/21/20 24 06/21/2024 urina lysis panel , auto Unknown Analyte 5.0-8. 0 Not Available [facility] Extended Services With [address] [place], [address], 06/21/2024 16:03:31 06/21/20 24 06/21/2024 urina lysis panel , auto Unknown Analyte 25 Yunior/ul Trace Not Available [facility] Extended Services With [address] [place], [address], 06/21/2024 16:03:31 06/21/20 24 06/21/2024 urina lysis panel , auto Unknown Analyte Negati ve Not Available [facility] Extended Services With [address] [place], [address], 06/21/2024 16:03:31 06/21/20 24 06/21/2024 urina lysis panel , auto Unknown Analyte Negati ve Not Available [facility] Extended Services With [address] [place], [address], 06/21/2024 16:03:31 06/21/20 24 06/21/2024 urina lysis panel , auto Unknown Analyte Negati ve Not Available [facility] Extended Services With [address] [place], [address], 06/21/2024 16:03:31 06/21/20 24 06/21/2024 urina lysis panel , auto Unknown Analyte Negati ve Not Available [facility] Extended Services With [address] [place], [address], 06/21/2024 16:03:31 06/21/20 24 06/21/2024 urina lysis panel , auto Unknown Analyte Negati ve Not Available [facility] Extended Services With [address] [place], [address], 06/21/2024 16:03:31 06/21/20 24 06/21/2024 urina lysis panel , auto Unknown Analyte Normal Not Available [facility] Extended Services With [address] [place], [address], 06/21/2024 16:03:31 06/21/20 24 06/21/2024 urina lysis panel , auto Unknown Analyte Normal Not Available [facility] Extended Services With [address], [place], [address], 06/21/2024 16:03:31 06/21/20 24 06/21/2024 urina lysis panel , auto Unknown Analyte Negati ve Not Available [facility] Extended Services With [address] [place], [address], 06/21/2024 16:03:31 06/21/20 24 06/21/2024 urina lysis panel , auto Unknown Analyte Negati ve Not Available [facility] Extended Services With [address] [place], [address], 06/21/2024 16:03:31 06/21/20 24 06/21/2024 urina lysis panel , auto Unknown Analyte Normal Not Available [facility] Extended Services With [address] [place], [address], 06/21/2024 16:03:31 06/21/20 24 06/21/2024 urina lysis panel , auto Unknown Analyte Normal 1 mg/dl Not Available [facility] Extended Services With [address] [place], [address], 06/21/2024 16:03:31 06/21/20 24 06/21/2024 urina lysis panel , auto Unknown Analyte Negati ve Not Available [facility] Extended Services With [address] [place], [address], 06/21/2024 16:03:31 06/21/20 24 06/21/2024 urina lysis panel , auto Unknown Analyte Negati ve Not Available [facility] Extended Services With [address] [place], [address], 06/21/2024 16:03:31 06/21/20 24 06/21/2024 urina lysis panel , auto Unknown Analyte Negati ve Not Available [facility] Extended Services With [address] [place], [address], 06/21/2024 16:03:31 06/21/20 24 06/21/2024 urina lysis panel , auto Unknown Analyte Negati ve Not Available [facility] Extended Services With [address] [place], [address], 06/21/2024 16:03:31 07/26/20 24 07/30/2024 URINE CULTU RE urine culture COLON Y COUNT : > 100,0 00 CFU/M L Three or more isola sheree; mixed uroge nital jovanny . Not Available [facility] [address] [facility], [place], [address], 07/30/2024 12:07:19 07/26/2007/26/2024 urina lysis panel , auto Unknown Analyte Clean Catch Not Available [facility] Extended Services With [address] [place], [address], 07/26/2024 12:31:47 07/26/2007/26/2024 urina lysis panel , auto Unknown Analyte Yellow Not Available [facility] Extended Services With [address] [place], [address], 07/26/2024 12:31:47 07/26/2007/26/2024 urina lysis panel , auto Unknown Analyte Clear Not Available [facility] Extended Services With [address] [place], [address], 07/26/2024 12:31:47 07/26/2007/26/2024 urina lysis panel , auto Unknown Analyte 1.020 Not Available [facility] Extended Services With [address], [place], [address], 07/26/2024 12:31:47 07/26/2007/26/2024 urina lysis panel , auto Unknown Analyte 1.003- 1.035 Not Available [facility] Extended Services With [address], [place], [address], 07/26/2024 12:31:47 07/26/2007/26/2024 urina lysis panel , auto Unknown Analyte 6.0 Not Available [facility] Extended Services With [address], [place], [address], 07/26/2024 12:31:47 07/26/2007/26/2024 urina lysis panel , auto Unknown Analyte 5.0-8. 0 Not Available [facility] Extended Services With [address], [place], [address], 07/26/2024 12:31:47 07/26/2007/26/2024 urina lysis panel , auto Unknown Analyte Negati ve Not Available [facility] Extended Services With [address], [place], [address], 07/26/2024 12:31:47 07/26/2007/26/2024 urina lysis panel , auto Unknown Analyte Negati ve Not Available [facility] Extended Services With [address], [place], [address], 07/26/2024 12:31:47 07/26/2007/26/2024 urina lysis panel , auto Unknown Analyte Negati ve Not Available [facility] [place] [facility] Services With [address], [place], [address], 07/26/2024 12:31:47 07/26/2007/26/2024 urina lysis panel , auto Unknown Analyte Negati ve Not Available [facility] Extended Services [place] [address] [place], [address], 07/26/2024 12:31:47 07/26/2007/26/2024 urina lysis panel , auto Unknown Analyte Negati ve Not Available [facility] Extended Services With [address] [place], [address], 07/26/2024 12:31:47 07/26/2007/26/2024 urina lysis panel , auto Unknown Analyte Negati ve Not Available [facility] Extended Services With [address] [place], [address], 07/26/2024 12:31:47 07/26/2007/26/2024 urina lysis panel , auto Unknown Analyte Normal Not Available [facility] Extended Services With [address] [place], [address], 07/26/2024 12:31:47 07/26/2007/26/2024 urina lysis panel , auto Unknown Analyte Normal Not Available [facility] Extended Services With [address] [place], [address], 07/26/2024 12:31:47 07/26/2007/26/2024 urina lysis panel , auto Unknown Analyte Negati ve Not Available [facility] Extended Services With [address] [place], [address], 07/26/2024 12:31:47 07/26/2007/26/2024 urina lysis panel , auto Unknown Analyte Negati ve Not Available [facility] Extended Services With [address], [place], [address], 07/26/2024 12:31:47 07/26/2007/26/2024 urina lysis panel , auto Unknown Analyte Normal Not Available [facility] Extended Services With [address], [place], [address], 07/26/2024 12:31:47 07/26/2007/26/2024 urina lysis panel , auto Unknown Analyte Normal 1 mg/dl Not Available [facility] Extended Services With [address], [place], [address], 07/26/2024 12:31:47 07/26/2007/26/2024 urina lysis panel , auto Unknown Analyte Negati ve Not Available [facility] Extended Services With [address], [place], [address], 07/26/2024 12:31:47 07/26/2007/26/2024 urina lysis panel , auto Unknown Analyte Negati ve Not Available [facility] Extended Services With [address], [place], [address], 07/26/2024 12:31:47 07/26/2007/26/2024 urina lysis panel , auto Unknown Analyte Negati ve Not Available [facility] Extended Services With [address], [place], [address], 07/26/2024 12:31:47 07/26/2007/26/2024 urina lysis panel , auto Unknown Analyte Negati ve Not Available [facility] Extended Services With [address], [place], [address], 07/26/2024 12:31:47 09/17/20 24 09/17/2024 GFR ESTIM ATE GFR 74 >= 60 normal NOT E New calcu latio n for GFR (CKD- EPI 2020) is formu lated witho ut race adjus tment facto rs at the recom menda tion of the Natio nal Kidne y Found ation and Amjc Sabillone ty of Nephr ology . This calcu latio n has not been valid ated in pregn ant women . For pedia cari patie nts refer to https ://rafa henriquez.edison clemons/[facility]ilton harris s/JUDYO QI/gf r_cal culat orPed Not Available [facility] [address] [place] [address], [address], 09/17/2024 11:13:53 09/17/20 24 09/17/2024 CREAT INE KINAS E creatine kinase 30 U/L 0-169 normal Not Available [facility] [address] [place], [address], 09/17/2024 11:13:56 09/17/20 24 09/17/2024 ALT ALT 9 U/L 0-33 normal Not Available [facility] [address] [place] [address], [address], 09/17/2024 11:13:58 09/17/20 24 09/17/2024 C REACT CHRISTEL PROTE IN C reactive protein 0.25 mg/dL 0.00-0 .49 normal Not Available [facility] [address] [place], [address], 09/17/2024 11:14:00 09/17/20 24 09/17/2024 MAGNE SIUM magnesium 1.8 mg/dL 1.6-2. 6 normal Not Available [facility] [address] [place], [address], 09/17/2024 11:14:03 09/17/20 24 09/17/2024 AST AST 12 U/L 0-32 normal Not Available [facility] [address] [place] [address], [address], 09/17/2024 11:14:05 09/17/20 24 09/17/2024 CREAT ININE creatinine 0.90 mg/dL 0.50-0 .95 normal Not Available [facility] [address] [place] [address], [address], 09/17/2024 11:14:08 09/17/20 24 09/17/2024 COMPL ETE BLOOD COUNT white blood cells 4.3 10*3/ uL 3.8-10 .8 normal Not Available [facility] [address] [place] [address], [address], 09/17/2024 11:23:47 09/17/20 24 09/17/2024 COMPL ETE BLOOD COUNT red blood cells 4.32 10*6/ uL 3.80-5 .20 normal Not Available [facility] [address] [place] [address], [phone], 09/17/2024 11:23:47 09/17/20 24 09/17/2024 COMPL ETE BLOOD COUNT hemoglobin 13.2 g/dL 12.0-1 6.0 normal Not Available [facility] [address] [place] [address], [phone], 09/17/2024 11:23:47 09/17/20 24 09/17/2024 COMPL ETE BLOOD COUNT hematocrit 40.6 % 35.0-4 7.0 normal Not Available [facility] [address] [place] [address], [phone], 09/17/2024 11:23:47 09/17/20 24 09/17/2024 COMPL ETE BLOOD COUNT MCV 94 fL 80-100 normal Not Available [facility] [address] [place] [address], [address], 09/17/2024 11:23:47 09/17/20 24 09/17/2024 COMPL ETE BLOOD COUNT MCH 31 pg 26-35 normal Not Available [facility] [address] [place] [address], [id number], 09/17/2024 11:23:47 09/17/20 24 09/17/2024 COMPL ETE BLOOD COUNT MCHC 33 g/dL 32-36 normal Not Available [facility] [address] [place] [address], [address], 09/17/2024 11:23:47 09/17/20 24 09/17/2024 COMPL ETE BLOOD COUNT RDW 13.7 % 11.0-1 5.0 normal Not Available [facility] [address] [place] [address], [phone], 09/17/2024 11:23:47 09/17/20 24 09/17/2024 COMPL ETE BLOOD COUNT MPV 7.8 fL 6.2-10 .5 normal Not Available [facility] [address] [place] [address], [address], 09/17/2024 11:23:47 09/17/20 24 09/17/2024 COMPL ETE BLOOD COUNT platelet count 306 10*3/ uL 150-40 0 normal Not Available [facility] [address] [place] [address], [address], 09/17/2024 11:23:47 09/17/20 24 09/17/2024 COMPL ETE BLOOD COUNT neutrophil,a bsolute 2.8 10*3/ uL 1.6-8. 4 normal Not Available [facility] [address] [place] [address], [phone], 09/17/2024 11:23:47 09/17/20 24 09/17/2024 COMPL ETE BLOOD COUNT lymphocyte,a bsolute 0.9 10*3/ uL 0.4-5. 1 normal Not Available [facility] [address] [place] [address], [phone], 09/17/2024 11:23:47 09/17/20 24 09/17/2024 COMPL ETE BLOOD COUNT monocyte,abs olute 0.4 10*3/ uL 0.0-1. 2 normal Not Available [facility] [address] [place] [address], [address], 09/17/2024 11:23:47 09/17/20 24 09/17/2024 COMPL ETE BLOOD COUNT eosinophil,a bsolute 0.1 10*3/ uL 0.0-0. 8 normal Not Available [facility] [address] [place] [address], [address], 09/17/2024 11:23:47 09/17/20 24 09/17/2024 COMPL ETE BLOOD COUNT basophil,abs olute 0.0 10*3/ uL 0.0-0. 3 normal Not Available [facility] [address] [place] [address], [address], 09/17/2024 11:23:47 09/17/20 24 09/17/2024 COMPL ETE BLOOD COUNT % neutrophils 65.8 % 42.0-7 8.0 normal Not Available [facility] [address] [place] [address], [address], 09/17/2024 11:23:47 09/17/20 24 09/17/2024 COMPL ETE BLOOD COUNT % lymphocytes 21.4 % 11.0-4 7.0 normal Not Available [facility] [address] [place] [address], [address], 09/17/2024 11:23:47 09/17/20 24 09/17/2024 COMPL ETE BLOOD COUNT % monocytes 10.2 % 0.0-11 .0 normal Not Available [facility] [address] [place] [address], [address], 09/17/2024 11:23:47 09/17/20 24 09/17/2024 COMPL ETE BLOOD COUNT % eosinophils 2.1 % 0.0-7. 0 normal Not Available [facility] [address] [place] [address], [address], 09/17/2024 11:23:47 09/17/20 24 09/17/2024 COMPL ETE BLOOD COUNT % basophils 0.5 % 0.0-3. 0 normal Not Available [facility] [address] [place] [address], [address], 09/17/2024 11:23:47 09/17/20 24 09/17/2024 COMPL ETE BLOOD COUNT nucleated red cells 0.0 % 0.0-0. 9 normal Not Available [facility] [address] [place] [address], [address], 09/17/2024 11:23:47 09/17/20 24 09/17/2024 COMPL ETE BLOOD COUNT nucleated RBCs, absolute 0.00 10*3/ uL not estab. normal Not Available [facility] [address] [place] [address], [address], 09/17/2024 11:23:47 09/17/20 24 09/17/2024 ESR, AUTOM ATED ESR, automated 10 mm 0-29 normal Not Available [facility] [address] [place] [address], [phone], 09/17/2024 12:32:41 09/17/20 24 09/19/2024 ANCA SCREE N, REFLE X TITER anca screen NEGATI VE negati ve normal ANCA scree n uses indir ect immun ofluo resce nce to detec t antib odies to neutr ophil cytop lasmi c antig ens. A posit christel scree n refle xes to titer and patte rn. Patte rns inclu de cytop lasmi c (c-AN CA) and perin uclea r (p-AN CA) both of which are assoc iated with vascu litis , and atypi narinder p-ANC A which is assoc iated with infla mmato ry bowel disea se and other disor ders. Not Available [facility] [address] [place], [address], 09/19/2024 14:34:57 09/17/20 24 09/19/2024 ANCA VASCU LITID ES myeloperoxid ase Ab <1.0 ai normal Value Inter preta tion ----- ----- ----- ---- <1.0 No Antib delaney Detec angella > or = 1.0 Antib delaney Detec angella Autoa ntibo dies to myelo perox idase (MPO) are commo nly assoc iated with the follo wing small -vess el vascu litid es: micro scopi c polya ngiit is, polya rteri tis nodos a, [place] -Stra uss syndr ome, necro tizin g and cresc entic glome rulon ephri tis and occas ional ly granu lomat osis with polya ngiit is (GPA, Wegen er's) . The perin mariella king rn, (p-AN CA) is based large ly on autoa ntibo dy to myelo perox idase which serve s as the prima ry antig en. These autoa ntibo dies are prese nt in activ e disea se. Not Available [facility] [address] [place], [address], 09/19/2024 15:33:38 09/17/20 24 09/19/2024 ANCA VASCU LITID ES proteinase-3 Ab <1.0 ai normal Value Inter preta tion ----- ----- ----- ---- <1.0 No Antib delaney Detec angella > or = 1.0 Antib delaney Detec angella Autoa ntibo dies to prote inase -3 (NV-3 ) are accep angella as mily cteri stic for granu lomat osis with polya ngiit is (GPA, Wegen er's) , and are detec table in 95% of the histo logic ally prove n cases . The cytop lasmi c LUISA king rn, (c-AN CA), is based large ly on autoa ntibo dy to NV-3 which serve s as the prima ry antig en. These autoa ntibo dies are prese nt in activ e disea se. Not Available [facility] [address] [place] [address], [address], 09/19/2024 15:33:38 09/17/20 24 09/19/2024 SS-A/ SS-B (SJOG RADHA'S ) ss-A Ab <1.0 NEG ai <1.0 neg normal Not Available [facility] [address] [place] [address], [address], 09/19/2024 15:33:54 09/17/20 24 09/19/2024 SS-A/ SS-B (SJOG RADHA'S ) ss-B Ab <1.0 NEG ai <1.0 neg normal Not Available [facility] [address] [place] [address], [address], 09/19/2024 15:33:54 09/17/20 24 09/19/2024 EMILEE W/ REFLE X EMILEE screen NEGATI VE negati ve normal EMILEE IFA is a first line scree n for detec ting the prese nce of up to appro ximat tunde 150 autoa ntibo dies in vario us autoi mmune disea ses. A negat christel EMILEE IFA resul t sugge sts an EMILEE-a ssoci ated autoi mmune disea se is not prese nt at this time, but is not defin itive . If there is high clini narinder suspi cion for Sjogr en's syndr ome, testi ng for anti- SS-A/ Ro antib delaney shoul d be consi dered . Anti- [place]-1 antib delaney shoul d be consi dered for clini allie suspe cted infla mmato ry myopa krissy . AC-0: Negat christel Inter natio nal Conse nsus on EMILEE Marte rns (http s://d oi.or g/10. 1515/ [facility]- 2017- 0052) For addit ional infor kory olea refer to http: //angie Horne gnost ics.c om/fa q/FAQ 177 (This link is being provi ded for infor deepthi aldridge/ ethan ross purpo ses only. ) Not Available [facility], [place], [address], 09/19/2024 18:55:56 11/29/19 25 11/29/2024 urina lysis panel , auto Unknown Analyte Clean Catch Not Available [facility] [address], [place], [address], 11/29/2024 15:12:02 11/29/19 25 11/29/2024 urina lysis panel , auto Unknown Analyte Yellow Not Available [facility] With [address], [place], [address], 11/29/2024 15:12:02 11/29/19 25 11/29/2024 urina lysis panel , auto Unknown Analyte Clear Not Available [facility] With [address], [place], [address], 11/29/2024 15:12:02 11/29/19 25 11/29/2024 urina lysis panel , auto Unknown Analyte 1.010 Not Available [facility] With [address], [place], [address], 11/29/2024 15:12:02 11/29/19 25 11/29/2024 urina lysis panel , auto Unknown Analyte 1.003- 1.035 Not Available [facility] With [address], [place], [address], 11/29/2024 15:12:02 11/29/19 25 11/29/2024 urina lysis panel , auto Unknown Analyte 7.0 Not Available [facility] With [address], [place], [address], 11/29/2024 15:12:02 11/29/19 25 11/29/2024 urina lysis panel , auto Unknown Analyte 5.0-8. 0 Not Available [facility] With [address], [place], [address], 11/29/2024 15:12:02 11/29/19 25 11/29/2024 urina lysis panel , auto Unknown Analyte Negati ve Not Available [facility] [address] [place], [address], 11/29/2024 15:12:02 11/29/19 25 11/29/2024 urina lysis panel , auto Unknown Analyte Negati ve Not Available [facility] [address], [place], [address], 11/29/2024 15:12:02 11/29/19 25 11/29/2024 urina lysis panel , auto Unknown Analyte Negati ve Not Available [facility] [address] [place], [address], 11/29/2024 15:12:02 11/29/19 25 11/29/2024 urina lysis panel , auto Unknown Analyte Negati ve Not Available [facility] [address] [place], [address], 11/29/2024 15:12:02 11/29/19 25 11/29/2024 urina lysis panel , auto Unknown Analyte Negati ve Not Available [facility] [address] [place], [place], [address], 11/29/2024 15:12:02 11/29/19 25 11/29/2024 urina lysis panel , auto Unknown Analyte Negati ve Not Available [facility] [address] [place], [address], 11/29/2024 15:12:02 11/29/19 25 11/29/2024 urina lysis panel , auto Unknown Analyte Normal Not Available [facility] [address] [place], [address], 11/29/2024 15:12:02 11/29/19 25 11/29/2024 urina lysis panel , auto Unknown Analyte Normal Not Available [facility] [address] [place], [address], 11/29/2024 15:12:02 11/29/19 25 11/29/2024 urina lysis panel , auto Unknown Analyte Negati ve Not Available [facility] [address] [place], [address], 11/29/2024 15:12:02 11/29/19 25 11/29/2024 urina lysis panel , auto Unknown Analyte Negati ve Not Available [facility] [address] [place], [address], 11/29/2024 15:12:02 11/29/19 25 11/29/2024 urina lysis panel , auto Unknown Analyte Normal Not Available [facility] [address] [place], [address], 11/29/2024 15:12:02 11/29/19 25 11/29/2024 urina lysis panel , auto Unknown Analyte Normal 1 mg/dl Not Available [facility] [address] [place], [address], 11/29/2024 15:12:02 11/29/19 25 11/29/2024 urina lysis panel , auto Unknown Analyte Negati ve Not Available [facility] [address] [place], [address], 11/29/2024 15:12:02 11/29/19 25 11/29/2024 urina lysis panel , auto Unknown Analyte Negati ve Not Available [facility] [address] [place], [address], 11/29/2024 15:12:02 11/29/19 25 11/29/2024 urina lysis panel , auto Unknown Analyte Negati ve Not Available [facility] [address] [place], [address], 11/29/2024 15:12:02 11/29/19 25 11/29/2024 urina lysis panel , auto Unknown Analyte Negati ve Not Available [facility] [address] [place], [address], 11/29/2024 15:12:02 11/20/19 25 11/20/2024 XR, abdom en, 1 view No observ ation record ed. [email or web address] [facility] (Radiology) [address] [place], [address], 11/21/2024 13:39:56 Result Notes None recorded. Problems Name Problem SNOMED Code Status Onset Date Resolution Date Notes Provider Name and Address Organization Details Recorded Time Mixed anxiety and depressive disorder 056475342 Active 2021 Jennifer nolan, [facility] 3 14:15:18 Restless legs 46150524 Active 2021 Jennifer Bruno null, [facility] 3 14:15:18 Insomnia 962348629 Active 2021 Jennifer Bruno null, [facility] 3 14:15:18 Bipolar disorder 68009854 Active 2021 Jennifer Bruno null, [facility] 3 14:15:18 Attention deficit hyperactiv ity disorder 764486467 Active 2021 Jennifer Bruno null, [facility] 3 14:15:18 Allergic rhinitis 87471623 Active 2021 Jennifer Bruno null, [facility] 3 14:15:18 Hypothyroi dism 59350546 Active 2021 Jennifer Bruno null, [facility] 3 14:15:18 Chronic tension-ty pe headache 815801931 Active 2014 From Automated Load;Provi wayne: Christina [place];Stat us: [facility]:18 Migraine without aura 25945695 Active 2014 From Automated Load;Provi wayne: Christina [place];Stat us: [facility] 14:15:18 Migraine with aura 9437550 Active 2014 From Automated Load;Provi wayne: Christina [place];Stat us: [facility] 14:15:18 Fibromyalg ia 047507475 Active 2014 From Automated Load;Provi wayne: Christina Washington;Stat us: [facility] 14:15:18 Essential tremor 521459241 Active 2015 From Automated Load;Provi wayne: Christina [place];Stat us: [facility] 14:15:18 Problem Notes Documentation Provider Name and Address Organization Details Recorded Time Progress Note : [place] [address] [place] [address]EGEJEH, Kim (Legal name: Zena Chin) (id #[id number], : 1965) [facility] [address] [place] [place] [address] Encounter Summary - Progress Note Date Printed: 07/08/2024 Documents sent via fax will include the followingmessage: This fax may contain sensitive and confidential personal health information that is being sent for the sole use of the intended recipient. Unintended recipients are directed to securely destroy any materials received. You are hereby notified that the unauthorized disclosure or other unlawful use of this fax or any personal health information is prohibited. To the extent patient information contained in this fax is subject to 42 CFR Part 2, this regulation prohibits unauthorized disclosure of these records. If you received this fax in error, please visit [email or web address] to notify the sender and confirm that the information will be destroyed. If you do not have internet access, please call to notify the sender and confirm that the information will be destroyed. Thank you for your attention and cooperation. [ID:[id number]] Patient Zena Chin (59yo, F) #[id number] 1965 Patient Demographics: Address [address] [place] [id number] Encounter Notes: Encounter Reason/Date yearly/kub 06/21/2024 - 04:00PM - [facility] History of Present [id number] female in the office for follow-up evaluation of urolithiasis and overactive bladder symptoms. Patient reports spasm pain at the end of urination and malodorous urine for the last 3 weeks with a previous episode that resolved about 3 months ago. Daytime urination highly variable from perhaps 2x a day to every 30-45 minutes for several hours at a time, nocturia 1-2x. She has taken AZO with relief of symptoms. Review of Systems Patient reportsurinary urgency and abnormal urinary flowing. She reports no fever, no night sweats, no significant weight gain, no significant weight loss, and no exercise intolerance. She reports no abdominal pain, no nausea, and no vomiting. [id number] 16:02 Ht: 5 ft 6 in Wt: 156 lbs BMI: 25.2 Results/Interpretations URINALYSIS PANEL, AUTO UA Auto/Manual RESULT REFERENCE RANGE SOURCE Clean Catch COLOR Yellow APPEARANCE Clear SPECIFIC GRAVITY 1.020 1.003-1.035 pH 5.0 5.0-8.0 LEUKOCYTE ESTERACE 25 Yunior/ul Trace Negative NITRITE Negative Negative PROTEIN Negative Negative GLUCOSE Normal Normal KETONES Negative Negative UROBILINOGEN Normal Normal 1 mg/dl BILIRUBIN Negative Negative BLOOD Negative Negative Physical ExamConstitutional:General Appearance: healthy-appearing, well-nourished, and well-developed. Psychiatric:Orientation: to time, place, and person. Abdomen:Inspection and Palpation: soft, non-distended, and no tenderness. Procedure DocumentationNone recorded Assessment and PlanUrine for culture and sensitivity. Oxybutynin for medical management of lower urinary symptoms. 1. Overactive urinary gnupackM93.81: Overactive bladder URINALYSIS PANEL, AUTO - Specimen source: Urine LEARNING ABOUT HEALTHY WEIGHT oxybutynin chloride ER 10 mg tablet,extended release 24 hr - Take 1 tablet(s) every day by oral route for 30 days. Qty: (30) tablet Refills: 3 Pharmacy: [facility] #[id number] 2. Kidney cdgvfP29.0: Calculus of kidney 3. Urinary tract infectious zpfovkdS01.0: Urinary tract infection, site not specified URINE CULTURE - Specimen source: URINE, CLEAN CATCH Specimen: Y URINALYSIS PANEL, AUTO UA Auto/Manual RESULT REFERENCE RANGE SOURCE Clean Catch COLOR Yellow APPEARANCE Clear SPECIFIC GRAVITY 1.020 1.003-1.035 pH 5.0 5.0-8.0 LEUKOCYTE ESTERACE 25 Yunior/ul Trace Negative NITRITE Negative Negative PROTEIN Negative Negative GLUCOSE Normal Normal KETONES Negative Negative UROBILINOGEN Normal Normal 1 mg/dl BILIRUBIN Negative Negative BLOOD Negative Negative Return to Office ROXANE BEARD MD for RECHECK at [facility] on 07/26/2024 at 01:30 PM BERNABE BEARD APRN for RECHECK at [facility] on 08/22/2024 at 09:15 AM AMY JESSICA MD for NEUROLOGY RECHECK at [facility] on 11/07/2024 at 09:15 AM Patient Medical History: Allergies List Reviewed Allergies NEOMYCIN NEOMYCIN SULFATE: - Comment: Created By: Wilber Tran;Created Date: 07/03/2013 8:58:16 AM; NEOSPORIN PLUS PAINRELIEF(APOLLO): - Comment: Created By: Wilber Tran;Created Date: 07/03/2013 8:57:55 AM; POLYSPORIN POLYSPORIN(BACITRACIN BASE): - Comment: Created By: Wilber Tran;Created Date: 07/03/2013 8:58:04 AM; Some allergies listed in Document: #[id number] could not be added to this patient's chart. Please review this document and add these allergies to the patient's chart manually as needed. Medications Reviewed Medications NameDate Source albuterol sulfate HFA 90 mcg/actuation aerosol inhalerINHALE 2 PUFFS BY MOUTH EVERY 6 HOURS NEEDED FOR COUGHING AND AIOJIHJ87/24/23 filled surescripts dextroamphetamine-amphetamine 30 mg tabletTAKE 1 TABLET BY MOUTH EVERY MORNING AND EVERY ZKXPQGWJB11/23/24 filled surescripts estradioL 2 mg tabletTAKE 1 TABLET BY MOUTH EVERY DAY05/24/24 filled surescripts fluticasone propionate 50 mcg/actuation nasal spray,suspensionUSE 2 SPRAY(S) IN EACH NOSTRIL ONCE DAILY YOKCNLTW99/23/22 filled surescripts hydroxychloroquine 200 mg tabletTAKE 1 TABLET BY MOUTH EVERY DAY01/03/24 filled surescripts levocetirizine 5 mg tabletTAKE 1 TABLET BY MOUTH EVERY DAY LBRKYUKE87/19/24 filled surescripts levoFLOXacin 500 mg tabletTAKE 1 TABLET BY MOUTH EVERY 24 HOURS DIRECTED FOR 7 DAYS06/27/24 filled surescripts medroxyPROGESTERone 5 mg tabletTAKE 1 TABLET BY MOUTH EVERY DAY05/24/24 filled surescripts montelukast 10 mg tabletTAKE 1 TABLET BY MOUTH EVERY NIGHT03/29/23 filled surescripts oxyBUTYnin chloride ER 10 mg tablet,extended release 24 hrTAKE 1 TABLET BY MOUTH EVERY DAY06/21/24 filled surescripts predniSONE 20 mg /23/24 filled surescripts propranoloL 20 mg tabletTAKE 1 TABLET BY MOUTH TWICE DAILY NEEDED FOR ZNQQDTS84/18/24 filled surescripts rOPINIRole 4 mg tabletTAKE 1 TABLET BY MOUTH EVERY DAY04/10/24 filled surescripts sertraline 100 mg tabletTAKE 1 TABLET BY MOUTH DAILY09/21/23 filled surescripts Synthroid 125 mcg tabletTake 1 tablet(s) every day by oral route in the morning for 90 days.05/10/24 prescribed BERNABE BEARD APRN topiramate 50 mg tabletTAKE 1 TABLET BY MOUTH EVERY MORNING AND 2 TABLETS EVERY ARMJTXI48/23/24 filled surescripts Vraylar 1.5 mg capsuleTAKE 1 CAPSULE BY MOUTH ONCE DAILY04/12/24 filled surescripts zolpidem 10 mg tabletTAKE 1 TABLET BY MOUTH AT BEDTIME NEEDED FOR SLEEP05/24/24 filled surescripts Family HistoryReviewed Family History Mother - Hypertensive disorder Maternal Aunt - Cerebrovascular accident Father - Family history of malignant neoplasm Past Medical HistoryReviewed Past Medical History Allergies/Hayfever:Y Anxiety Disorder:Y Asthma:Y Depression:Y High Cholesterol:Y Notes: sjogrens Vaccine HistoryReviewed Vaccines Vaccine Type Date Amt. Route Site [facility] [place] 2[place] Lot # Mfr. Exp. Date VIS VIS Given [employer] COVID-19 COVID-19, mRNA, LNP-S, PF, 30 mcg/0.3 mL dose (FinicityBioNTTopVisible) 06/25/21 COVID-19, mRNA, LNP-S, PF, 30 mcg/0.3 mL dose (FinicityBioNTTopVisible) 05/26/21 Electronically Signed by: ROXANE BEARD MD AYLEEN Vines (Nicole) [facility] 07/09/2024 09:48:48 Progress Note : [place] [address] [place] [place] [address]RIVBIA, Kim (Legal name: Zena Chin) (id #[id number], : 1965) [place] [address] [place] [address] Encounter Summary - Progress Note Date Printed: 08/05/2024 Documents sent via fax will include the followingmessage: This fax may contain sensitive and confidential personal health information that is being sent for the sole use of the intended recipient. Unintended recipients are directed to securely destroy any materials received. You are hereby notified that the unauthorized disclosure or other unlawful use of this fax or any personal health information is prohibited. To the extent patient information contained in this fax is subject to 42 CFR Part 2, this regulation prohibits unauthorized disclosure of these records. If you received this fax in error, please visit [email or web address] to notify the sender and confirm that the information will be destroyed. If you do not have internet access, please call to notify the sender and confirm that the information will be destroyed. Thank you for your attention and cooperation. [ID:[id number]] Patient Zena Chin (59yo, F) #[id number] 1965 Patient Demographics: Address [address] [place] [id number] Encounter Notes: Encounter Reason/Date 1 month fu 07/26/2024 - 01:30PM - [facility] History of Present Cgdthef93-wbdv-ute female in the office for follow-up evaluation of urolithiasis and overactive bladder symptoms. Patient reports spasm pain at the end of urination and malodorous urine for the last 3 weeks with a previous episode that resolved about 3 months ago. Daytime urination highly variable from perhaps 2x a day to every 30-45 minutes for several hours at a time, nocturia 1-2x. She has taken AZO with relief of symptoms. She has discontinued oxybutynin. Urine Culture 06/21/24Escherichia coli, treated with levofloxacin Review of Systems Patient reportsincomplete emptying and urinary urgency. She reports no fever, no night sweats, no significant weight gain, no significant weight loss, and no exercise intolerance. She reports no abdominal pain, no nausea, and no vomiting. [id number] 18:02 Ht: 5 ft 6 in Wt: 152 lbs BMI: 24.5 Results/Interpretations URINALYSIS PANEL, AUTO UA Auto/Manual RESULT REFERENCE RANGE SOURCE Clean Catch COLOR Yellow APPEARANCE Clear SPECIFIC GRAVITY 1.020 1.003-1.035 pH 6.0 5.0-8.0 LEUKOCYTE ESTERACE Negative Negative NITRITE Negative Negative PROTEIN Negative Negative GLUCOSE Normal Normal KETONES Negative Negative UROBILINOGEN Normal Normal 1 mg/dl BILIRUBIN Negative Negative BLOOD Negative Negative Physical ExamConstitutional:General Appearance: healthy-appearing, well-nourished, and well-developed. Psychiatric:Orientation: to time, place, and person. Abdomen:Inspection and Palpation: soft, non-distended, and no tenderness. Procedure DocumentationNone recorded Assessment and PlanOxybutynin for medical management of lower urinary symptoms. Urine for culture. 1. Overactive urinary sqzvzdeL33.81: Overactive bladder URINALYSIS PANEL, AUTO - Specimen source: Urine LEARNING ABOUT HEALTHY WEIGHT oxybutynin chloride ER 10 mg tablet,extended release 24 hr - Take 1 tablet(s) every day by oral route for 30 days. Qty: (30) tablet Refills: 3 Pharmacy: [facility] #[id number] 2. Kidney dioxoK96.0: Calculus of kidney 3. Urinary tract infectious disease-UA good send for culture as ythtzoqesbA29.0: Urinary tract infection, site not specified URINE CULTURE - Specimen source: URINE, CLEAN CATCH Specimen: Y URINALYSIS PANEL, AUTO UA Auto/Manual RESULT REFERENCE RANGE SOURCE Clean Catch COLOR Yellow APPEARANCE Clear SPECIFIC GRAVITY 1.020 1.003-1.035 pH 6.0 5.0-8.0 LEUKOCYTE ESTERACE Negative Negative NITRITE Negative Negative PROTEIN Negative Negative GLUCOSE Normal Normal KETONES Negative Negative UROBILINOGEN Normal Normal 1 mg/dl BILIRUBIN Negative Negative BLOOD Negative Negative Return to Office BERNABE BEARD APRN for RECHECK at [facility] on 08/22/2024 at 09:15 AM ROXANE BEARD MD for RECHECK at [facility] on 10/25/2024 at 01:30 PM AMY JESSICA MD for NEUROLOGY RECHECK at [facility] on 11/07/2024 at 09:15 AM Patient Medical History: Allergies List Reviewed Allergies NEOMYCIN NEOMYCIN SULFATE: - Comment: Created By: Wilber Tran;Created Date: 07/03/2013 8:58:16 AM; NEOSPORIN PLUS PAINRELIEF(APOLLO): - Comment: Created By: Wilber Tran;Created Date: 07/03/2013 8:57:55 AM; POLYSPORIN POLYSPORIN(BACITRACIN BASE): - Comment: Created By: Wilber Tran;Created Date: 07/03/2013 8:58:04 AM; Some allergies listed in Document: #[id number] could not be added to this patient's chart. Please review this document and add these allergies to the patient's chart manually as needed. Medications Reviewed Medications NameDate Source albuterol sulfate HFA 90 mcg/actuation aerosol inhalerINHALE 2 PUFFS BY MOUTH EVERY 6 HOURS NEEDED FOR COUGHING AND KUCFDWJ97/16/24 filled surescripts dextroamphetamine-amphetamine 30 mg tabletTAKE 1 TABLET BY MOUTH EVERY MORNING AND EVERY QRNCNYEYQ69/23/24 filled surescripts estradioL 2 mg tabletTAKE 1 TABLET BY MOUTH EVERY DAY05/24/24 filled surescripts fluticasone propionate 50 mcg/actuation nasal spray,suspensionUSE 2 SPRAY(S) IN EACH NOSTRIL ONCE DAILY UVCWGSOL84/23/22 filled surescripts hydroxychloroquine 200 mg tabletTAKE 1 TABLET BY MOUTH EVERY DAY01/03/24 filled surescripts levocetirizine 5 mg tabletTAKE 1 TABLET BY MOUTH EVERY DAY DLKMQLWL66/19/24 filled surescripts medroxyPROGESTERone 5 mg tabletTAKE 1 TABLET BY MOUTH EVERY DAY05/24/24 filled surescripts montelukast 10 mg tabletTAKE 1 TABLET BY MOUTH EVERY NIGHT03/29/23 filled surescripts oxyBUTYnin chloride ER 10 mg tablet,extended release 24 hrTake 1 tablet(s) every day by oral route for 30 days.07/26/24 prescribed ROXANE BEARD MD predniSONE 20 mg biohgy17/23/24 filled surescripts propranoloL 20 mg tabletTAKE 1 TABLET BY MOUTH TWICE DAILY NEEDED FOR IZSITFE68/18/24 filled surescripts rOPINIRole 4 mg tabletTAKE 1 TABLET BY MOUTH EVERY DAY04/10/24 filled surescripts sertraline 100 mg tabletTAKE 1 TABLET BY MOUTH DAILY09/21/23 filled surescripts Synthroid 125 mcg tabletTake 1 tablet(s) every day by oral route in the morning for 90 days.05/10/24 prescribed BERNABE BEARD APRN topiramate 50 mg tabletTAKE 1 TABLET BY MOUTH EVERY MORNING AND 2 TABLETS EVERY NNBUPRM91/23/24 filled surescripts Vraylar 1.5 mg capsuleTAKE 1 CAPSULE BY MOUTH ONCE DAILY04/12/24 filled surescripts zolpidem 10 mg tabletTAKE 1 TABLET BY MOUTH AT BEDTIME NEEDED FOR SLEEP05/24/24 filled surescripts Family HistoryReviewed Family History Mother - Hypertensive disorder Maternal Aunt - Cerebrovascular accident Father - Family history of malignant neoplasm Past Medical HistoryReviewed Past Medical History Allergies/Hayfever:Y Anxiety Disorder:Y Asthma:Y Depression:Y High Cholesterol:Y Notes: sjogrens Vaccine HistoryReviewed Vaccines Vaccine Type Date Amt. Route Site [facility] [place] Lot # Mfr. Exp. Date VIS VIS Given Anvil[employer] COVID-19 COVID-19, mRNA, LNP-S, PF, 30 mcg/0.3 mL dose ([employer]) 06/25/21 COVID-19, mRNA, LNP-S, PF, 30 mcg/0.3 mL dose ([employer]) 05/26/21 Electronically Signed by: ROXANE BEARD MD AYLEEN Vines (Nicole) [facility] 08/08/2024 08:34:31 Rheumatology Note : [address] [address]SZYFTS, Kim (Legal name: Zenacelina Chin) (id #[id number], : 1965) [address] [address] Encounter Summary - Progress Note Date Printed: 09/17/2024 Documents sent via fax will include the followingmessage: This fax may contain sensitive and confidential personal health information that is being sent for the sole use of the intended recipient. Unintended recipients are directed to securely destroy any materials received. You are hereby notified that the unauthorized disclosure or other unlawful use of this fax or any personal health information is prohibited. To the extent patient information contained in this fax is subject to 42 CFR Part 2, this regulation prohibits unauthorized disclosure of these records. If you received this fax in error, please visit [email or web address] to notify the sender and confirm that the information will be destroyed. If you do not have internet access, please call to notify the sender and confirm that the information will be destroyed. Thank you for your attention and cooperation. [ID:[id number]] Patient Zena Chin (59yo, F) #[id number] 1965 Patient Demographics: Address [address] [place] [address] AYLE[place] Real [address] Encounter Notes: Encounter Reason/Date pinched nerve causing left neck pain and shoulder. tried epidurals- no help. MRI show C5-6 , worse on right but left hurts worse 09/17/2024 - 09:30AM - [facility] History of Present Illnesspatient returns after being absent for over a year with sjogren's follow up; she is having increased muscle pain and tenderness; she feels like she has no muscle tone; she has a lot of neck and shoulder pain; she continues with increased pain and tenderness; she has a lot of fatigue; she has muscle weakness with her large muscles and cannot squat at all; she is without interval infections; she denies all others Review of SystemsROS as noted in the HPI Vitals Ht: 5 ft 6 in09/17/2024 09:33 am Wt: 156 lbs With ofebpep5509/17/2024 09:34 am BMI: 25. 09:34 am BP: 138/90 sitting R arm09/17/2024 09:38 am Pulse: 97 bpm09/17/2024 09:39 am O2Sat: 99%09/17/2024 09:39 am Results/InterpretationsNone recorded Physical ExamConstitutional:General Appearance: healthy-appearing, well-nourished, and well-developed. Level of Distress: NAD. Ambulation: ambulating normally. Mental Status:Mental Status: normal mood and affect and active and alert. Orientation: to time, place, and person. Head:Head: normocephalic and atraumatic. Eyes:Lids and Conjunctivae: no discharge or pallor and non-injected. Sclerae: non-icteric. ENMT:Ears: no lesions on external ear or hearing loss. Nose: no lesions on external nose and nares patent. Oral Cavity: no mouth or lip ulcers. Oropharynx: moist mucous membranes. Face: no malar erythema. Lungs:Respiration: no dyspnea. Musculoskeletal System:Joints, Bones, and Muscles: no contractures, malalignment, or bony abnormalities and normal movement of all extremities andtenderness. Extremities: no cyanosis or edema. Cervical Spine:pain. Knees: no ligamentous instability on examination. Neurological Exam:Motor: normal bulk and tone and no tremors, rigidity, or bradykinesia. Gait and Station: normal gait and station. Cranial Nerves: grossly intact. Sensation: grossly intact. Skin:Inspection and palpation: no rash, lesions, ulcer, induration, nodules, jaundice, or abnormal nevi and good turgor. Nails: normal. Procedure DocumentationNone recorded Assessment and Plan1. Sj gren's syndrome-per salivary gland biopsy she is positive for sjogren's syndromewith extraglandular features of joint pain, stiffness and swelling in the joints, Raynaud's phenomenonwith dry eyes, dry mouth and other glandular drynessshe also has an overlap of robbin's thyroiditis she will maintain hydroxychloroquine 200 mg Eye exam completed recently with negative exam. opthamology has advised patient to follow up every 6 months since taking hydroxychloroquine. M35.00: Sjogren syndrome, unspecified hydroxychloroquine 200 mg tablet - TAKE 1 TABLET BY MOUTH EVERY DAY Qty: (90) tablet Refills: 1 Pharmacy: [facility] #[id number] C-REACTIVE PROTEIN 2. Keratoconjunctivitis sicca-ssa/b negativeana vbuypwurN18.01: Sjogren syndrome with keratoconjunctivitis SSA/SSB SJOGREN'S AB EMILEE W/ REFLEX 3. Xerostomia-ssa/b negativeana negative at the time of biopsybiopsy positivetreated with plaquenil msshmI25.7: Disturbances of salivary secretion 4. Raynaud's phenomenon-stable and controlledworsening with weather changes as auaixyT98.00: Raynaud's syndrome without gangrene 5. Neck pain-mild degenerative changes with neural foraminal narrowingcontinues with ortho spinewith left shoulder painM54.2: Cervicalgia 6. 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 Synthroid increased to 125 mcg daily. E06.3: Autoimmune thyroiditis 7. 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 Muscle pain-able to stand without pushing upM79.10: Myalgia, unspecified site CREATINE KINASE MAGNESIUM ANCA SCREEN (REFLEX P-ANCA, C-ANCA) ANCA VASCULITIDES Return to Office ROXANE BEARD MD for RECHECK at [facility] on 10/25/2024 at 01:30 PM AMY JESSICA MD for NEUROLOGY RECHECK at [facility] on 11/07/2024 at 09:15 AM SAIMA DEL ROSARIO APRN for RHEUM RECHECK at [facility] on 09/16/2025 at 09:00 AM Patient Medical History: Allergies List Reviewed Allergies NEOMYCIN NEOMYCIN SULFATE: - Comment: Created By: Wilber Tran;Created Date: 07/03/2013 8:58:16 AM; NEOSPORIN PLUS PAINRELIEF(APOLLO): - Comment: Created By: Wilber Tran;Created Date: 07/03/2013 8:57:55 AM; POLYSPORIN POLYSPORIN(BACITRACIN BASE): - Comment: Created By: Wilber Tran;Created Date: 07/03/2013 8:58:04 AM; Some allergies listed in Document: #[id number] could not be added to this patient's chart. Please review this document and add these allergies to the patient's chart manually as needed. Medications Reviewed Medications NameDate Source albuterol sulfate HFA 90 mcg/actuation aerosol inhalerINHALE 2 PUFFS BY MOUTH EVERY 6 HOURS NEEDED FOR COUGHING AND VXNOVOU93/16/24 filled surescripts dextroamphetamine-amphetamine 30 mg tabletTAKE 1 TABLET BY MOUTH EVERY MORNING AND EVERY OOGXBKLUX17/23/24 filled surescripts estradioL 2 mg tabletTAKE 1 TABLET BY MOUTH EVERY DAY05/24/24 filled surescripts fluticasone propionate 50 mcg/actuation nasal spray,suspensionUSE 2 SPRAY(S) IN EACH NOSTRIL ONCE DAILY MVTAHKEJ47/23/22 filled surescripts gabapentin 300 mg capsuleTAKE 1 CAPSULE BY MOUTH EVERY NIGHT Internal Note:morning and night08/13/24 filled surescripts hydroxychloroquine 200 mg tabletTAKE 1 TABLET BY MOUTH EVERY DAY09/17/24 prescribed SAIMA DEL ROSARIO APRN levocetirizine 5 mg tabletTAKE 1 TABLET BY MOUTH EVERY DAY MOQNQHYW71/20/24 filled surescripts medroxyPROGESTERone 5 mg tabletTAKE 1 TABLET BY MOUTH EVERY DAY08/10/24 filled surescripts montelukast 10 mg tabletTAKE 1 TABLET BY MOUTH EVERY NIGHT03/29/23 filled surescripts oxyBUTYnin chloride ER 10 mg tablet,extended release 24 hrTake 1 tablet(s) every day by oral route for 30 days.07/26/24 prescribed ROXANE BEARD MD predniSONE 20 mg muqtet93/23/24 filled surescripts propranoloL 20 mg tabletTAKE 1 TABLET BY MOUTH TWICE DAILY NEEDED FOR ALSEYEK63/18/24 filled surescripts rOPINIRole 4 mg tabletTAKE 1 TABLET BY MOUTH EVERY DAY09/16/24 filled surescripts sertraline 100 mg tabletTAKE 1 TABLET BY MOUTH DAILY09/21/23 filled surescripts Synthroid 125 mcg tabletTake 1 tablet(s) every day by oral route in the morning for 90 days.05/10/24 prescribed BERNABE BEARD APRN topiramate 50 mg tabletTAKE 1 TABLET BY MOUTH EVERY MORNING AND 2 TABLETS EVERY WCXQLYJ46/21/24 filled surescripts Vraylar 1.5 mg capsuleTAKE 1 CAPSULE BY MOUTH ONCE DAILY08/15/24 filled surescripts zolpidem 10 mg tabletTAKE 1 TABLET BY MOUTH AT BEDTIME NEEDED FOR SLEEP05/24/24 filled surescripts Family HistoryFamily History not reviewed (last reviewed 07/26/2024) Mother - Hypertensive disorder Maternal Aunt - Cerebrovascular accident Father - Family history of malignant neoplasm Past Medical HistoryPast Medical History not reviewed (last reviewed 07/26/2024) Asthma:Y Notes: sjogrens Vaccine HistoryVaccines not reviewed (last reviewed 07/26/2024) Vaccine Type Date Amt. Route Site [facility] [place] Lot # Mfr. Exp. Date VIS VIS Given Anvil[employer] COVID-19 COVID-19, mRNA, LNP-S, PF, 30 mcg/0.3 mL dose ([employer]) 06/25/21 COVID-19, mRNA, LNP-S, PF, 30 mcg/0.3 mL dose ([employer]) 05/26/21 Electronically Signed by: SAIMA DEL ROSARIO APRN, NP Jyotsna Montgomery) AYLEEN De La Cruz [facility] 09/17/2024 15:28:25 Urology Note : [address] [place] [address]RJHZGB, Kim (Legal name: Zena Chin) (id #[id number], : 1965) [address] [place] [address] Encounter Summary - Progress Note Date Printed: 12/09/2024 Documents sent via fax will include the followingmessage: This fax may contain sensitive and confidential personal health information that is being sent for the sole use of the intended recipient. Unintended recipients are directed to securely destroy any materials received. You are hereby notified that the unauthorized disclosure or other unlawful use of this fax or any personal health information is prohibited. To the extent patient information contained in this fax is subject to 42 CFR Part 2, this regulation prohibits unauthorized disclosure of these records. If you received this fax in error, please visit [email or web address] to notify the sender and confirm that the information will be destroyed. If you do not have internet access, please call to notify the sender and confirm that the information will be destroyed. Thank you for your attention and cooperation. [ID:[id number]] Patient Zena Chin (59yo, F) #[id number] 1965 Patient Demographics: Address [address] [place] [address] AYLEEN Hanks [address] Encounter Notes: Encounter Reason/Date 3 m [facility] fu 11/29/2024 - 01:45PM - [facility] History of Present Egqtlrq27-vgdv-tzs female in the office for follow-up evaluation of urolithiasis and overactive bladder symptoms. Patient reports daytime frequency 3x daily, she feels she drinks plenty of fluid though recently, perhaps less, nocturia 1x, no hesitancy/straining. KUB 11/20/24IMPRESSION:Several right-sided renal calculi measuring up to 3 mm similar to prior exam. Lab Results 09/17/24creatinine= 0.9GFR= 74 Review of Systems Patient reportsabnormal urinary flowingbut reports no incontinence, no difficulty urinating, no hematuria, no increased frequency, no urinary urgency, no nocturia, and no dysuria. She reports no fever, no night sweats, no significant weight gain, no significant weight loss, and no exercise intolerance. She reports no abdominal pain, no nausea, and no vomiting. [id number] 14:48 Ht: 5 ft 6 in Wt: 148 lbs BMI: 23.9 Results/Interpretations URINALYSIS PANEL, AUTO UA Auto/Manual RESULT REFERENCE RANGE SOURCE Clean Catch COLOR Yellow APPEARANCE Clear SPECIFIC GRAVITY 1.010 1.003-1.035 pH 7.0 5.0-8.0 LEUKOCYTE ESTERACE Negative Negative NITRITE Negative Negative PROTEIN Negative Negative GLUCOSE Normal Normal KETONES Negative Negative UROBILINOGEN Normal Normal 1 mg/dl BILIRUBIN Negative Negative BLOOD Negative Negative Physical ExamConstitutional:General Appearance: healthy-appearing, well-nourished, and well-developed. Psychiatric:Orientation: to time, place, and person. Abdomen:Inspection and Palpation: soft, non-distended, and no tenderness. Procedure DocumentationNone recorded Assessment and PlanOxybutynin for medical management of lower urinary symptoms. Monitor KUB for small nonobstructing renal stone. She does take Topamax for migraines. 1. Kidney azqveG97.0: Calculus of kidney URINALYSIS PANEL, AUTO - Specimen source: Urine LEARNING ABOUT HEALTHY WEIGHT 2. Overactive urinary pvuhdhaH96.81: Overactive bladder URINALYSIS PANEL, AUTO UA Auto/Manual RESULT REFERENCE RANGE SOURCE Clean Catch COLOR Yellow APPEARANCE Clear SPECIFIC GRAVITY 1.010 1.003-1.035 pH 7.0 5.0-8.0 LEUKOCYTE ESTERACE Negative Negative NITRITE Negative Negative PROTEIN Negative Negative GLUCOSE Normal Normal KETONES Negative Negative UROBILINOGEN Normal Normal 1 mg/dl BILIRUBIN Negative Negative BLOOD Negative Negative Return to Office ROXANE BEARD MD for RECHECK at [facility] on 05/30/2025 at 01:15 PM SAIMA DEL ROSARIO APRN for RHEUM RECHECK at [facility] on 09/16/2025 at 09:00 AM Patient Medical History: Allergies List Reviewed Allergies NEOMYCIN NEOMYCIN SULFATE: - Comment: Created By: Wilber Tran;Created Date: 07/03/2013 8:58:16 AM; NEOSPORIN PLUS PAINRELIEF(APOLLO): - Comment: Created By: Wilber Tran;Created Date: 07/03/2013 8:57:55 AM; POLYSPORIN POLYSPORIN(BACITRACIN BASE): - Comment: Created By: Wilber Tran;Created Date: 07/03/2013 8:58:04 AM; Some allergies listed in Document: #[id number] could not be added to this patient's chart. Please review this document and add these allergies to the patient's chart manually as needed. Medications Reviewed Medications NameDate Source albuterol sulfate HFA 90 mcg/actuation aerosol inhalerINHALE 2 PUFFS BY MOUTH EVERY 6 HOURS NEEDED FOR COUGHING AND EEDJFGM96/16/24 filled surescripts celecoxib 200 mg capsuleTake 1 capsule(s) twice a day by oral route for 90 days.09/17/24 filled surescripts dextroamphetamine-amphetamine 30 mg tabletTAKE 1 TABLET BY MOUTH EVERY MORNING AND EVERY AADKYJDGC86/24/25 filled surescripts estradioL 2 mg tabletTAKE 1 TABLET BY MOUTH DAILY11/20/24 filled surescripts fluticasone propionate 50 mcg/actuation nasal spray,suspensionUSE 2 SPRAY(S) IN EACH NOSTRIL ONCE DAILY IPRVJCWU64/23/22 filled surescripts gabapentin 300 mg capsuleTAKE 1 CAPSULE BY MOUTH TWICE DAILY10/15/24 filled surescripts hydroxychloroquine 200 mg tabletTAKE 1 TABLET BY MOUTH EVERY DAY09/17/24 filled surescripts levocetirizine 5 mg tabletTAKE 1 TABLET BY MOUTH EVERY DAY XHNHNBNL34/20/24 filled surescripts medroxyPROGESTERone 5 mg tabletTAKE 1 TABLET BY MOUTH EVERY DAY11/07/24 filled surescripts montelukast 10 mg tabletTAKE 1 TABLET BY MOUTH EVERY DAY AT RTDOIVW04/29/25 filled surescripts nitrofurantoin monohydrate/macrocrystals 100 mg psolhgf80/12/25 filled surescripts oxyBUTYnin chloride ER 10 mg tablet,extended release 24 hrTake 1 tablet(s) every day by oral route for 30 days.07/26/24 prescribed ROXANE BEARD MD predniSONE 20 mg anhkdc58/23/24 filled surescripts propranoloL 20 mg tabletTAKE 1 TABLET BY MOUTH TWICE DAILY NEEDED FOR CKROLSB99/18/24 filled surescripts rOPINIRole 4 mg tabletTAKE 1 TABLET BY MOUTH EVERY DAY11/13/24 filled surescripts sertraline 100 mg tabletTAKE 1 TABLET BY MOUTH DAILY09/21/23 filled surescripts Synthroid 125 mcg tabletTAKE 1 TABLET BY MOUTH IN THE FTVKJMG66/30/24 filled surescripts topiramate 50 mg tabletTAKE 1 TABLET BY MOUTH EVERY MORNING AND 2 TABLETS EVERY ZVDWGAR78/21/24 filled surescripts Vraylar 1.5 mg capsuleTAKE 1 CAPSULE BY MOUTH ONCE DAILY08/15/24 filled surescripts zolpidem 10 mg tabletTAKE 1 TABLET BY MOUTH AT BEDTIME NEEDED FOR SLEEP05/24/24 filled surescripts Family HistoryReviewed Family History Mother - Hypertensive disorder Maternal Aunt - Cerebrovascular accident Father - Family history of malignant neoplasm Past Medical HistoryReviewed Past Medical History Allergies/Hayfever:Y Anxiety Disorder:Y Asthma:Y Depression:Y High Cholesterol:Y Notes: sjogrens Vaccine HistoryReviewed Vaccines Vaccine Type Date Amt. Route Site [facility] [place] 2[place] Lot # Mfr. Exp. VIS VIS Given [employer]vil[employer] COVID-19 COVID-19, mRNA, LNP-S, PF, 30 mcg/0.3 mL dose ([employer]) 06/25/21 COVID-19, mRNA, LNP-S, PF, 30 mcg/0.3 mL dose ([employer]) 05/26/21 Electronically Signed by: ROXANE BEARD MD Jyotsna nolan (Nicole)[facility] 12/19/2024 13:32:00 Procedures Surgical History Date Name Laterality Status Provider Name and Address Organization Details Recorded Time 025 procedure on shoulder completed Too Her [facility] 11/29/2024 14:49:44 021 Salivary Gland Biopsy completed Sabrina Ortega [facility] 07/22/2021 10:15:58 021 Electromyography (EMG) with Nerve Conduction Study (NCV) completed Sharla Rodriguez (Nicky) [facility] 05/12/2021 14:59:30 020 Botox Injection - Migraine completed CHRISTINA WASHINGTON MD [address] [place] [address], [id number] 04/11/2020 10:40:53 017 Electromyography (EMG) with Nerve Conduction Study (NCV) completed Sharla Rodriguez (Nicky) [facility] 08/23/2017 10:09:32 Tubal Ligation completed Nuvia Voss [facility] 01/24/2017 14:42:26 Orthopedic Surgery completed Dari Voss [facility] 01/24/2017 14:43:38 accessory sinus excision completed Too Her [facility] 09/16/2022 14:32:03 blepharectomy completed Too Her [facility] 09/16/2022 14:32:31 LEEP completed Too Her [facility] 09/16/2022 14:32:39 Fragmenting of kidney stone completed Sharla Leong [facility] 10/26/2022 08:37:34 Imaging Results None recorded. Procedure Notes None recorded. Medical Equipment None Reported. Allergies Allergen ID Allergen Name Allergen Category Reaction Reaction Severity Criticality Documentation Date Start Date Code Code System Note Provider Name and Address Organization Details Recorded Time 189821 Polyspori n medicatio n Not available Not available Not available 09/10/20162012 95140 RxNorm Comme nt: Creat ed By: Zackery camacho;Cr eated Date: 2012 8:58: 04 AM; Not Available [facility] 6 05:06:32 [id number] bacitraci n / neomycin / polymyxin B / pramoxine medicatio n Not available Not available Not available 09/10/20162012 [id number] 0 RxNorm Comme nt: Creat ed By: Zackery camacho;Cr eated Date: 2012 8:57: 55 AM; Not Available [facility] 6 07:51:09 [id number] neomycin sulfate medicatio n Not available Not available Not available 09/10/20162012 7300 RxNorm Comme nt: Creat ed By: Zackery camacho;Cr eated Date: 2012 8:58: 16 AM; Not Available [facility] 6 08:30:24 [id number] neomycin medicatio n Not available Not available Not available 10/19/2022 [id number] [facility] 14:[facility]15 [id number] bacitraci n / polymyxin B medicatio n Not available Not available Not available 10/19/2022 [id number] RxNorm Jennifer Bruno [facility] 3 14:15:15 Medications Name Sig Start Date Stop Date Status Note LastModified by Organization Details LastModified Time ciproflox acin 90mg xylitol capsule [02734] EMPTY CONTENTS OF 1 CAPSULE INTO NASAL IRRIGATI ON SYSTEM, ADD DISTILLE D WATER, SALT PACK, MIX & IRRIGATE . PERFORM 2 TIMES DAILY 10/29 /2021 completed Not Available Not Available Not Available celecoxib 200 mg capsule Take 1 capsule twice a day by oral route for 90 days. active Not Available Not Available No t Available cyclobenz aprine 10 mg tablet Three times a day 02/03 completed PRN Not Available Not Available Not Available amoxicill in 500 mg capsule TAKE 1 CAPSULE BY MOUTH THREE TIMES DAILY FOR 10 DAYS 08/27 completed Not Available Not Available Not Available lamotrigi ne 150 mg tablet TAKE 1 TABLET BY MOUTH DAILY 07/14 completed Not Available Not Available Not Available promethaz ine-DM 6.25 mg-15 mg/5 mL oral syrup 02/03 completed Not Available Not Available Not Available venlafaxi ne ER 37.5 mg capsule,e xtended release 24 hr 1 daily x 2 weeks then 1 qod x 2 weeks then off 01/25 completed Not Available Not Available Not Available prednison e 10 mg tablet TAKE 5 TABLETS BY MOUTH ONCE DAILY WITH FOOD FOR 7 DAYS 05/25 completed Not Available Not Available Not Available venlafaxi ne ER 75 mg capsule,e xtended release 24 hr Daily 01/25 completed Not Available Not Available Not Available doxycycli ne hyclate 100 mg capsule TAKE 1 CAPSULE BY MOUTH TWICE DAILY FOR 10 DAYS 10/26 completed Not Available Not Available Not Available Plaquenil 200 mg tablet Take 1 tablet every day by oral route. 2024 active Not Available Not Available Not Avai lable lamotrigi ne 200 mg tablet TAKE 1 TABLET BY MOUTH DAILY 10/26 completed Not Available Not Available Not Available ropinirol e 1 mg tablet TAKE 3 TO 4 TABLETS BY MOUTH AT BEDTIME 11/16 completed Not Available Not Available Not Available etodolac 200 mg capsule TAKE 1 CAPSULE BY MOUTH TWICE DAILY UNTIL DIRECTED TO STOP. TAKE ONLY NEEDED FOR PAIN 07/14 completed Not Available Not Available Not Available oxybutyni n chloride ER 10 mg tablet,ex tended release 24 hr Take 1 tablet every day by oral route for 30 days. 2023 active Not Available Not Available Not Avai lable azithromy demar 250 mg tablet 08/16 completed Not Available Not Available Not Available benzonata te 200 mg capsule 10/26 completed Not Available Not Available Not Available ketotifen 0.025 % (0.035 %) eye drops INSTILL 1 DROP IN BOTH EYES TWICE DAILY NEEDED 10/26 completed Not Available Not Available Not Available clarithro mycin 500 mg tablet 04/11 completed Not Available Not Available Not Available hydrocodo ne 5 mg-acetam inophen 325 mg tablet TAKE 1 TABLET BY MOUTH EVERY 6 HOURS NEEDED FOR SEVERE PAIN 09/22 completed Not Available Not Available Not Available almotript an malate 12.5 mg tablet TAKE 1 TABLET BY MOUTH AT ONSET OF MIGRAINE DIRECTED MAY REPEAT IN 2 HOURS IF NEEDED, MAX DOSE 2 TABLETS PER 24 HOURS 01/18 completed Not Available Not Available Not Available Claritin 10 mg tablet Take 1 tablet every day by oral route. 04/11 completed Not Available Not Available Not Available Librax (with clidinium ) 5 mg-2.5 mg capsule Two times a day 08/16 completed Frequenc y: bid;Medi cation Descript ion: chlordia zepoxide -clidini um; Dosage:1 ; Route:or al; refills: 5; Quantity :60 capsule Not Available Not Available Not Available Synthroid 125 mcg tablet TAKE 1 TABLET BY MOUTH IN THE MORNING- need appt for refills 2024 active Not Available Not Available Not Avai lable prednison e 20 mg tablet TAKE 1 TABLET BY MOUTH EVERY DAY FOR 7 DAYS active Not Available Not Available No t Available dextroamp hetamine- amphetami ne 10 mg tablet TAKE 1 TABLET BY MOUTH TWICE DAILY 08/14 completed Not Available Not Available Not Available Synthroid 100 mcg tablet TAKE 1 TABLET BY MOUTH DAILY 07/14 completed Not Available Not Available Not Available clonazepa m 0.5 mg tablet TAKE 1 TABLET BY MOUTH TWICE DAILY NEEDED FOR SEVERE ANXIETY 11/16 completed Not Available Not Available Not Available estradiol 0.05 mg/24 hr weekly transderm al patch APPLY 1 PATCH TOPICALL Y TO THE SKIN 1 TIME A WEEK DIRECTED 10/26 completed Not Available Not Available Not Available medroxypr ogesteron e 5 mg tablet TAKE 1 TABLET BY MOUTH EVERY DAY active Not Available Not Available No t Available sertralin e 100 mg tablet TAKE 1 TABLET BY MOUTH DAILY active Not Available Not Available No t Available prednison e 5 mg tablet take one po tid x 1 week; one po bid x 1 week then one po daily x 1 week 10/26 completed Not Available Not Available Not Available acetamino phen 300 mg-codein e 30 mg tablet TAKE 1 TABLET BY MOUTH EVERY 6 HOURS NEEDED 12/07 completed Not Available Not Available Not Available valacyclo vir 500 mg tablet 08/16 completed Not Available Not Available Not Available omeprazol e 40 mg capsule,d elayed release TAKE 1 CAPSULE BY MOUTH EVERY DAY 11/16 completed Not Available Not Available Not Available Voltaren- XR 100 mg tablet,ex tended release Three times a day 08/16 completed Frequenc y: tid;Medi cation Descript ion: diclofen ac; Dosage:1 ; Route:or al; refills: 0 Not Available Not Available Not Available tramadol 50 mg tablet TAKE 1 TABLET BY MOUTH EVERY 6 HOURS NEEDED 10/26 completed Not Available Not Available Not Available TobraDex 0.3 %-0.1 % eye ointment 01/18 completed Not Available Not Available Not Available acyclovir 800 mg tablet 07/02 completed Not Available Not Available Not Available ondansetr on 8 mg disintegr ating tablet DISSOLVE 1 TABLET ON THE TONGUE THREE TIMES DAILY NEEDED FOR NAUSEA OR VOMITING 09/22 completed Not Available Not Available Not Available Depo-Medr ol 80 mg/mL suspensio n for injection Take 120 mg by injectio n route. 10/26 completed Not Available Not Available Not Available lamotrigi ne 25 mg tablet 08/14 completed Not Available Not Available Not Available ketorolac 10 mg tablet TAKE 1 TABLET BY MOUTH EVERY 8 HOURS 10/26 completed Not Available Not Available Not Available prednison e 10 mg tablets in a dose pack TAKE DIRECTED 07/14 completed Not Available Not Available Not Available dextroamp hetamine- amphetami ne 30 mg tablet TAKE 1 TABLET BY MOUTH EVERY MORNING AND EVERY AFTERNOO N active Not Available Not Available No t Available meloxicam 7.5 mg tablet TAKE 1 TABLET BY MOUTH EVERY DAY 05/09 completed Not Available Not Available Not Available oxycodone -acetamin ophen 5 mg-325 mg tablet 01/18 completed Not Available Not Available Not Available alprazola m 0.5 mg tablet TAKE 2 TABLETS BY MOUTH AT BEDTIME NEEDED AND TAKE 1 TABLET BY MOUTH 3 TIMES DAILY NEEDED DURING THE DAY FOR SEVERE ANXIETY AND PANIC 11/16 completed Not Available Not Available Not Available Adderall XR 30 mg capsule,e xtended release TAKE 1 CAPSULE BY MOUTH EVERY MORNING 09/22 completed Not Available Not Available Not Available hydromorp janet 2 mg tablet 10/26 completed Not Available Not Available Not Available ziprasido ne 20 mg capsule TAKE 1 CAPSULE BY MOUTH TWICE DAILY 07/07 completed Not Available Not Available Not Available famotidin e 20 mg tablet TAKE 1 TABLET BY MOUTH TWICE DAILY 10/26 completed Not Available Not Available Not Available tamsulosi n 0.4 mg capsule 10/26 completed Not Available Not Available Not Available dicyclomi ne 20 mg tablet 01/18 completed Not Available Not Available Not Available ciproflox acin 0.3 % eye drops INSTILL 2 DROPS INTO THE AFFECTED EYE EVERY 4 HOURS FOR 5 DAYS 08/14 completed Not Available Not Available Not Available dexametha sone 1 mg tablet 09/18 completed Not Available Not Available Not Available baclofen 10 mg tablet TAKE 1 TABLET BY MOUTH THREE TIMES DAILY TO FOUR TIMES DAILY 10/26 completed Not Available Not Available Not Available rizatript an 10 mg disintegr ating tablet 1 at onset; may repeat p2h PRN; max 2/24h 07/14 completed Not Available Not Available Not Available doxycycli ne monohydra te 100 mg capsule 01/18 completed Not Available Not Available Not Available hydrocodo ne 7.5 mg-acetam inophen 325 mg tablet TAKE 1 TABLET BY MOUTH EVERY 6 HOURS NEEDED 10/26 completed Not Available Not Available Not Available cephalexi n 250 mg/5 mL oral suspensio n 01/25 completed Not Available Not Available Not Available nitrofura ntoin macrocrys flex 100 mg capsule TAKE 1 CAPSULE BY MOUTH WITH FOOD OR MILK TWICE DAILY FOR 10 DAYS 05/19 completed Not Available Not Available Not Available tobramyci n 0.3 % eye drops INSTILL 1 DROP INTO BOTH EYES EVERY 8 HOURS FOR 1 WEEK THEN TWICE DAILY FOR 1 WEEK THEN EVERY DAY 07/07 completed Not Available Not Available Not Available triamcino lone acetonide 0.1 % topical ointment APPLY THIN LAYER TOPICALL Y TO LEFT EAR TWICE DAILY FOR 10 DAYS 10/06 completed Not Available Not Available Not Available dextroamp hetamine- amphetami ne 20 mg tablet TAKE 1 TABLET BY MOUTH TWICE DAILY 08/27 completed Not Available Not Available Not Available prednison e 50 mg tablet TAKE 1 TABLET BY MOUTH EVERY DAY 05/25 completed Not Available Not Available Not Available naproxen 500 mg tablet,de layed release TAKE 1 TABLET BY MOUTH TWICE DAILY NEEDED FOR PAIN 10/26 completed Not Available Not Available Not Available Synthroid 88 mcg tablet changed to 100mcg 08/16 completed Not Available Not Available Not Available promethaz ine 25 mg tablet TAKE 1 TABLET BY MOUTH THREE TIMES DAILY 11/22 completed Not Available Not Available Not Available Synthroid 75 mcg tablet TAKE 1 TABLET BY MOUTH EVERY DAY 07/14 completed Not Available Not Available Not Available dextroamp hetamine- amphetami ne 15 mg tablet TAKE 1 TABLET BY MOUTH TWICE DAILY FOR ADHD 07/14 completed Not Available Not Available Not Available gabapenti n 300 mg capsule TAKE 1 CAPSULE BY MOUTH TWICE DAILY active Not Available Not Available No t Available budesonid e 0.5 mg/2 mL suspensio n for nebulizat ion EMPTY CONTENTS OF 1 RESPULE INTO NASAL IRRIGATI ON SYSTEM, ADD DISTILLE D WATER, SALT PACK, MIX & IRRIGATE . PERFORM TWICE DAILY 08/14 completed Not Available Not Available Not Available estradiol 2 mg tablet TAKE 1 TABLET BY MOUTH DAILY active Not Available Not Available No t Available monteluka st 10 mg tablet TAKE 1 TABLET BY MOUTH EVERY DAY AT BEDTIME active Not Available Not Available No t Available mupirocin 2 % topical ointment APPLY A SMALL AMOUNT TO AFFECTED AREA TWICE A DAY 10/26 completed Not Available Not Available Not Available diclofena c sodium 50 mg tablet,de layed release 01/18 completed Not Available Not Available Not Available zolpidem 5 mg tablet TAKE 1 TABLET BY MOUTH AT BEDTIME NEEDED 10/26 completed Not Available Not Available Not Available Synthroid 112 mcg tablet TAKE 1 TABLET BY MOUTH DAILY 06/02 completed Not Available Not Available Not Available norethind ej acetate 5 mg tablet 08/16 completed Not Available Not Available Not Available azelastin e 137 mcg (0.1 %) nasal spray 12/07 completed Not Available Not Available Not Available levofloxa demar 500 mg tablet TAKE 1 TABLET BY MOUTH EVERY 24 HOURS DIRECTED FOR 7 DAYS 07/26 completed Not Available Not Available Not Available zolpidem 10 mg tablet TAKE 1 TABLET BY MOUTH AT BEDTIME NEEDED FOR SLEEP active Not Available Not Available No t Available methylpre dnisolone 4 mg tablets in a dose pack FOLLOW PACKAGE DIRECTIO NS 10/26 completed Not Available Not Available Not Available albuterol sulfate HFA 90 mcg/actua tion aerosol inhaler INHALE 2 PUFFS BY MOUTH EVERY 6 HOURS NEEDED FOR COUGHING AND WEEZING active Not Available Not Available No t Available Vitamin D2 1,250 mcg (50,000 unit) capsule 08/16 completed Medicati on Descript ion: ergocalc iferol; Route:or al; refills: 0 Not Available Not Available Not Available propranol ol 20 mg tablet TAKE 1 TABLET BY MOUTH TWICE DAILY NEEDED FOR TREMORS active Not Available Not Available No t Available carbidopa 25 mg-levodo pa 100 mg tablet Begin 1 tab qam x 3d, then 1 tab bid x 3d, then 1 tab tid x 2wks; then 1.5 tabs tid; take at least 1h before meals 07/02 completed Not Available Not Available Not Available ondansetr on 4 mg disintegr ating tablet DISSOLVE 1 TABLET ON THE TONGUE EVERY 8 HOURS NEEDED FOR NAUSEA 08/27 completed Not Available Not Available Not Available cefdinir 300 mg capsule 04/11 completed Not Available Not Available Not Available fluticaso ne propionat e 50 mcg/actua tion nasal spray,yumiko pension USE 2 SPRAY(S) IN EACH NOSTRIL ONCE DAILY DIRECTED active Not Available Not Available No t Available sertralin e 50 mg tablet TAKE 1 TABLET BY MOUTH EVERY DAY 04/08 completed Not Available Not Available Not Available lamotrigi ne 100 mg tablet TAKE 1 TABLET BY MOUTH DAILY 10/26 completed Not Available Not Available Not Available risperido ne 0.5 mg tablet TAKE 1 TABLET BY MOUTH TWICE DAILY 09/16 completed Not Available Not Available Not Available naproxen 500 mg tablet TAKE 1 TABLET BY MOUTH TWICE DAILY 11/24 completed Not Available Not Available Not Available spironola ctone 50 mg tablet Daily 01/25 completed Frequenc y: daily;Me dication Descript ion: spironol actone; Dosage:2 ; Route:or al; refills: 5; Quantity :30 tablet Not Available Not Available Not Available Poly-Iron 150 Forte 150 mg-25 mcg-1 mg capsule 08/14 completed Not Available Not Available Not Available diazepam 5 mg tablet Daily 02/03 completed Not Available Not Available Not Available amoxicill in 875 mg-potass ium clavulana te 125 mg tablet TAKE 1 TABLET BY MOUTH EVERY 12 HOURS FOR 7 DAYS 10/26 completed Not Available Not Available Not Available ropinirol e 4 mg tablet TAKE 1 TABLET BY MOUTH EVERY DAY active Not Available Not Available No t Available Benadryl 25 mg capsule Daily 04/11 completed Duration : 10 days;Gianfranco quency: daily;Me dication Descript ion: diphenhy dramine; Dosage:1 -2; Route:or al; refills: 0; Quantity :40 capsule Not Available Not Available Not Available Excedrin Extra Strength 250 mg-250 mg-65 mg tablet Daily 10/26 completed Frequenc y: daily;Al t Frequenc y: prn;Medi cation Descript ion: acetamin ophen/as pirin/ca ffeine; Dosage:1 ; Route:or al; refills: 0 Not Available Not Available Not Available Poly-Iron 150 mg iron capsule 01/25 completed Medicati on Descript ion: iron polysacc haride; Route:or al; refills: 0 Not Available Not Available Not Available aripipraz ole 5 mg tablet 10/26 completed Not Available Not Available Not Available cholestyr amine (with sugar) 4 gram powder for susp in a packet 07/02 completed Not Available Not Available Not Available Climara Pro 0.045 mg-0.015 mg/24 hr transderm al patch 01/18 completed Not Available Not Available Not Available escitalop krystian 5 mg tablet 01/18 completed Not Available Not Available Not Available topiramat e 50 mg tablet TAKE 1 TABLET BY MOUTH EVERY MORNING AND 2 TABLETS EVERY EVENING active Not Available Not Available No t Available nitrofura ntoin monohydra te/macroc rystals 100 mg capsule active Not Available Not Available Not Available duloxetin e 30 mg capsule,d elayed release TAKE 1 CAPSULE BY MOUTH EVERY DAY 07/14 completed Not Available Not Available Not Available magnesium 07/02 completed Not Available Not Available Not Available Co Q-10 10/26 completed Not Available Not Available Not Available progester one Daily 01/25 completed Frequenc y: daily;Me dication Descript ion: Compound Med; Dosage:1 ; refills: 0 Not Available Not Available Not Available biotin 04/11 completed Not Available Not Available Not Available iron 04/11 completed Not Available Not Available Not Available Requip Three times a day 01/25 completed Frequenc y: tid;Medi cation Descript ion: ropiniro le; Route:or al; refills: 0; Quantity :3 tablet Not Available Not Available Not Available Vitamin D3 10/26 completed Not Available Not Available Not Available Voltaren- XR PRN 04/11 completed Not Available Not Available Not Available Axert 02/03 completed Not Available Not Available Not Available Vitamin B6 10/26 completed Not Available Not Available Not Available Hair,Skin and Nails 10/26 completed Not Available Not Available Not Available Vyvanse 10/26 completed Not Available Not Available Not Available levocetir izine 5 mg tablet TAKE 1 TABLET BY MOUTH EVERY DAY DIRECTED active Not Available Not Available No t Available lisdexamf etamine 60 mg capsule 05/09 completed Not Available Not Available Not Available Neilmed Sinus Rinse Complete with packet USE DIRECTED 10/26 completed Not Available Not Available Not Available lisdexamf etamine 40 mg capsule TAKE 1 CAPSULE BY MOUTH IN THE MORNING 11/16 completed Not Available Not Available Not Available Probiotic 10/26 completed Not Available Not Available Not Available krill oil 07/02 completed Not Available Not Available Not Available Dymista 137 mcg-50 mcg/spray nasal spray 07/02 completed Medicati on Descript ion: azelasti ne-fluti casone nasal; Route:na stas; refills: 0 Not Available Not Available Not Available Vitamin B12 10/26 completed Not Available Not Available Not Available Vraylar 1.5 mg capsule TAKE 1 CAPSULE BY MOUTH ONCE DAILY active Not Available Not Available No t Available turmeric 500 mg-black pepper extract 3 mg capsule Take by oral route. 07/07 completed Not Available Not Available Not Available Xhance 93 mcg/actua tion breath activated aerosol [place] 1 spray twice a day by intranas al route. 08/14 completed Not Available Not Available Not Available Clenpiq 10 mg-3.5 gram-12 gram/160 mL oral solution FOLLOW DIRECTIO NS MAILED TO YOUR HOME 08/27 completed Not Available Not Available Not Available Ajovy 225 mg/1.5 mL subcutane ous auto-inje ctor INJECT 1.5ML EVERY MONTH SUBCUTAN EOUSLY 05/09 completed Not Available Not Available Not Available BinaxNOW COVID-19 Ag Self Test kit TEST DIRECTED TODAY 11/22 completed Not Available Not Available Not Available Azstarys 39.2 mg-7.8 mg capsule 10/26 completed Not Available Not Available Not Available Paxlovid 300 mg (150 mg x 2)-100 mg tablets in a dose pack FOLLOW PACKAGE DIRECTIO NS 10/26 completed Not Available Not Available Not Available Miebo (PF) 100 % eye drops INSTILL 1 DROP INTO BOTH EYES 4 TIMES A DAY (EVERY 6 HOURS) . BOTTLE PREPARAT ION IS REQUIRED . REFER TO PACKAGE INSERT FOR SPECIAL PREPARAT IO 05/09 completed Not Available Not Available Not Available Vitals Date Recorded Body height Body mass index (BMI) Body weight Provider Name and Address Organization Details Last Updated DateTime 11/29/2024 167.64 cm 23.9 kg/m2 75056.67 g Too Her [facility] 11/29/2024 14:48:43 Date Recorded Body height Body mass index (BMI) Body weight Heart rate Systolic blood pressure Diastolic blood pressure Provider Name and Address Organization Details Last Updated DateTime 167.64 cm 25.2 kg/m2 90520.4 1 g 94 /min 112 mm[Hg] 82 mm[Hg] Marivel Beard [facility] 09:29:26 Date Recorded Body height Body mass index (BMI) Body weight Provider Name and Address Organization Details Last Updated DateTime 06/21/2024 167.64 cm 25.2 kg/m2 69271.41 g Too Her [facility] 06/21/2024 16:02:33 Date Recorded Body height Body mass index (BMI) Body weight Provider Name and Address Organization Details Last Updated DateTime 07/26/2024 167.64 cm 24.5 kg/m2 27612.04 g Too Her [facility] 07/26/2024 18:02:34 Date Recorded Body height Body mass index (BMI) Body weight Heart rate Oxygen saturation Oxygen saturation in Arterial blood by Pulse oximetry Systolic blood pressure Diastolic blood pressure Provider Name and Address Organization Details Last Updated DateTime 167.64 cm 25.2 kg/m2 17053.4 1 g 97 /min 99 % 99 % 138 mm[Hg] 90 mm[Hg] Hailey Quinteros [facility] 09:38:42 Social History Question Answer Notes LastModified by Organizat ion Details LastModified Time Tobacco Smoking Status Former Smoker quit 2001 Pearl Menezes [facility] 07/14/2021 10:09:33 When Did You Quit Smoking? 16+yearssince [email or web address] Information not available 11/22/2022 Live Alone Or With Others? With Others Information not available 01/24/2017 Marital Status [email or web address] Information not available 01/24/2017 What Was The Date Of Your Most Recent Tobacco Screening? 11/29/2024 [email or web address] Information not available 11/29/2024 How Many Years Have You Smoked Tobacco? 20 [email or web address] Information not available 07/14/2021 Sex: Female Functional Status Question Answer Note LastModified by Organizat ion Details LastModified Time Do you use any illicit or recreational drugs? No [email or web address] Information not available 07/07/2022 Do you or have you ever used any other forms of tobacco or nicotine? No [email or web address] Information not available 12/07/2021 What is your level of alcohol consumption? Occasional [email or web address] Information not available 07/07/2022 Are you currently employed? Yes Information not available 11/22/2022 Have you been exposed to chemicals or toxins? 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 Moderate Information not available 11/22/2022 Mental Status None recorded. Family History Relationship Description Onset Age of this Age Resolved Age Notes LastModified by Organization Details LastModified Time Mother Hypertensive disorder [email or web address] Not available 2016 14:39:45 Maternal Aunt Cerebrovascu lar accident [email or web address] Not available 07/2017 14:39:57 Father Family history of malignant neoplasm [email or web address] Not available 2021 14:27:39 Medical History Condition Response Allergies/Hayfever Y Emphysema N Migraines Y COPD N Depression Y Neurological Problems Y Diabetes N Anxiety Disorder Y Bleeding Disorder N Arthritis N Acid Reflux (GERD) N Asthma Y High Cholesterol Y Heart Disease N Rheumatoid Arthritis N Hypertension N Gynecological HistoryNo gynecological history recorded. Obstetrics History GPAL:G 0 P 0 0 0 0 Immunizations Vaccine Type Date Status Note Provider Nam e and Address Organization Details Recorded Time COVID-19, mRNA, LNP-S, PF, 30 mcg/0.3 mL dose 05/26/2021 completed Murelene Arden [facility] 11/29/2024 14:48:47 COVID-19, mRNA, LNP-S, PF, 30 mcg/0.3 mL dose 06/25/2021 completed Murelene Arden [facility] 11/29/2024 14:48:47 Past Encounters Encounter ID Performer Location Encounter Start Date Encounter Closed Date Diagnosis/Indication Diagnosis SNOMED-CT Code Diagnosis ICD10 Code Diagnosis Note [id number] CHRISTINA WASHINGTON MD NEUROLOGY [facility] CLOS[facility] [address] [facility] [place] [address] 01/25/2017 08:53:00 01/25/2017 13:00:18 Chronic tension-type headache 996595378 G44.221 Tension type headaches, episodic migrainehe adaches overall have improved since sinus surgery - taper Topamax 1/2 dose x 1 week, the 1/4 dose x 1 week, until off-- Be aware if tremor worsens or if headaches getting worse. - Start turmeric w/black pepper- Start CoQ10 300mg qam and magnesium oxide 400mg qhs- Trial of melatonin ER 1 to 2 mg- Apply peppermint oil or DoTerra: Past Tense topically to shoulders- Trial of lacross ball or TheraCane to massge out muscle spasms- Continue Flexeril and diclofenac -- Be sure to have BMP checked regularly for kidney function while on diclofenac - pt so counseled- Continue propranolo l PRN- Continue to use antihistam ine, steroid nasal spray, and NeilMed Sinus Rinse-- Follow up w/ENT- Continue krill oil- RTC 6 months or sooner PRN CC: Sandie Mcghee APRN Migraine with aura [id number] 06 G43.109 rare ophthalmic migraine or migraine aura. Essential tremor [id number] 09 G25.0 Essential tremor- continue propranolo l- recent thyroid function reportedly ok -- sees an endocrinol ogist Fibromyalgia [id number] M 79.7 She has fibromyalg ia, allergies and sinus disease. Depressive disorder 3118 9007 F32.9 Depression and anxiety. Counselled on potential depressive effects of propranolo l. Pt denies depression at this time but does admit to low mood, she feels related to fatigue Fatigue [id number] R53.83 Last B12 was 212 and she is not currently supplement ing other than hair formula which she started about a month ago- Will recheck B12 level Medication side effects present [id number] T50.905D Effexor - weight gainTopama x - hair thinning-- - I outlined a taper schedule for Topamax [id number] CHRISTINA WASHINGTON MD NEUROLOGY [facility] [address] [place] [address] 08/16/2017 08:33:16 08/16/2017 09:55:23 Chronic tension-type headache [id number] G44.221 Tension type headaches, episodic migrainehe adaches overall have improved since sinus surgery -EMG for pain in the peroneal distributi on; BLE-Take a PRN topamax if having a EDGAR.-Start B12 SL-Start vit D3 2000 iu's daily - Continue turmeric w/black pepper- Continue CoQ10 300mg qam and magnesium oxide 400mg qhs- Continue melatonin ER 1 to 2 mg- Apply peppermint oil or DoTerra: Past Tense topically to shoulders- Trial of lacross ball or TheraCane to massge out muscle spasms- Continue Flexeril and diclofenac -- Be sure to have BMP checked regularly for kidney function while on diclofenac - pt so counseled- Continue propranolo l PRN- Continue to use antihistam ine, steroid nasal spray, and NeilMed Sinus Rinse- Continue krill oil- RTC 4 months or sooner PRN CC: Sandie Mcghee APRN Migraine with aura 98511 06 G43.109 rare ophthalmic migraine or migraine aura.- increased frequency with weather changes-- defer on adding a new preventati ve medication since this should be transient- - consider nerve blocks if this persists or unable to treat-- for now recommend Excedrine Migraine _ Topamax 1 tab at onset migraine (acute tx)-- avoid more than 10 analgesics per month Essential tremor 7845336 09 G25.0 Essential tremor- continue propranolo l- recent thyroid function reportedly ok -- sees an endocrinol ogist Fatigue 25257702 R53.83 Last B12 was 212 and she is not currently supplement ing other than hair formula which she started about a month ago- Counseled extensivel y about the importance of vitamin supplement ation particular ly given low B12, vit D and iron. Hair, Skin and Nails formula is insufficie nt.- resume B12 1000 mcg SL daily Medication side effects present 106924066 T50.905D Effexor - weight gainTopama x - hair thinning-- - I outlined a taper schedule for Topamax Fibromyalgia [id number] M 81.7 She has fibromyalg ia, allergies and sinus disease. Depressive disorder 3548 9005 F32.9 Depression and anxiety. Counselled on potential depressive effects of propranolo l. Pt denies depression at this time but does admit to low mood, she feels related to fatigue Pain in le ft lower limb [id number] M79.605 Will schedule EMG Pain in ri ght lower limb [id number] M79.604 as above. [id number] CHRISTINA WASHINGTON MD NEUROLOGY [facility] [address] [place] [address] 08/23/2017 08:33:29 08/24/2017 12:20:53 Skin sensation disturbance 50661573 R20.9 Low back pain 246827600 M54.5 [id number] CHRISTINA WASHINGTON MD NEUROLOGY [facility] [address] [place] [address] 01/18/2019 15:21:17 01/19/2019 07:50:12 Chronic tension-type headache 188565187 G44.221 Tension type headaches, episodic migrainehe adaches overall have improved since sinus surgeryShgeo is still taking Excedrin everyday -- pt counseled that she is to avoid more than 10 doses per month - will resume Topamax- avoid more than 10 analgesics per month- Sinemet may help if these are cervicogen ic or myofascial ly mediated- Continue turmeric w/black pepper- Continue CoQ10 300mg qam and magnesium oxide 400mg qhs- Continue melatonin ER 1 to 2 mg- use peppermint oil or DoTerra: Past Tense topically to shoulders- Trial of lacross ball or TheraCane to massage out muscle spasms- Continue Flexeril- Continue propranolo l PRN- Continue to use antihistam ine, steroid nasal spray, and NeilMed Sinus Rinse- Continue krill oil- RTC 3-4 months or sooner PRN Migraine with aura 33424 06 G43.109 rare ophthalmic migraine or migraine aura.- increased frequency with weather changes-- defer on adding a new preventati ve medication since this should be transient- - consider nerve blocks if this persists or unable to treat-- for now recommend Excedrine Migraine _ Topamax 1 tab at onset migraine (acute tx)-- avoid more than 10 analgesics per month Essential tremor 5494000 09 G25.0 Essential tremor; + FH tremor in her sister- continue propranolo l- recent thyroid function low and now on higher Synthroid, had new labs today but doesn't know results.- PMH B12 defiency 212; now alterntati ng B12 and B-complex; recommend she take B12 daily Fatigue 78466907 R53.83 Last B12 was 212 and she is not currently supplement ing other than hair formula which she started about a month ago- Counseled extensivel y about the importance of vitamin supplement ation particular ly given low B12, vit D and iron. Hair, Skin and Nails formula is insufficie nt.- resume DAILY B12 1000 mcg SL, and don't alternativ e it with B=complex- take B-complex daily as long as B6 < 25 mg- continue vit D Fibromyalgia [id number] M 81.7 She has fibromyalg ia, allergies and sinus disease. On cyclobenza héctor Recommend she take magnesium qhs (now taking ~ once a week) Begin regular exercise program Depressive disorder 2376 9000 F32.9 Depression and anxiety. Counselled on potential depressive effects of propranolo l. Pt denies depression at this time but does admit to low mood, she feels related to fatigue - would avoid Wellbutrin which may worsen tremor - she may have some benefit once I add Sinemet Generalized dystonia 425 902420 G24.8 53 yo RH woman with chronic pain issues ongoing for years including headaches, body pains, muscles spasms in shoulders and back. She has always tilted her head to the right and has pulling with head turing to the right. Left shoulder rests higher than the R and she has a mild scoliosis. She has always suffered with bruxism (as does her father) and she has a tremor, as does her sister. I suspect this is genetic, but can't be sure. Her handwritin g is getting smaller and her tone is increased both arms, she has decreased arm swing on the R and she is retropulsi ve. She suffers with RLS, depression , anxiety, OCD. Rarely she will note some drooling. - will give a trial of Sinemet (she thinks she has tried in past, maybe for RLS) - continue Requip 2 mg 1-2 tab qhs for RLS - will continue her propranolo l for her essential tremor - pending benefit of Sinemet, may consider Botox for dystonia; Would include cervical, trunk, bruxism and maybe limbs - counseled on the importance of exercise - RTC 3-4 months I spent more than an hour with patient with greater than 50% in counseling regarding exam findings, signficanc e of symptoms in both pt and family members, potential Dx, indication for tx and potential SE. CC: Raquel Armas APRN [id number] CHRISTINA WASHINGTON MD NEUROLOGY [facility] [address] [place] [address] 07/02/2019 10:57:29 07/02/2019 12:04:41 Chronic tension-type headache [id number] G44.221 Tension type headaches, episodic migrainehe adaches overall have improved since sinus surgeryShgeo is still taking Excedrin everyday -- pt counseled that she is to avoid more than 10 doses per month - will resume Topamax- avoid more than 10 analgesics per month- Sinemet may help if these are cervicogen ic or myofascial ly mediated- Continue turmeric w/black pepper- Continue CoQ10 300mg qam and magnesium oxide 400mg qhs- Continue melatonin ER 1 to 2 mg- use peppermint oil or DoTerra: Past Tense topically to shoulders- Trial of lacross ball or TheraCane to massage out muscle spasms- Continue Flexeril- Continue propranolo l PRN- Continue to use antihistam ine, steroid nasal spray, and NeilMed Sinus Rinse- Continue krill oil- RTC 3-4 months or sooner PRN Migraine with aura 98688 06 G43.109 rare ophthalmic migraine or migraine aura.- increased frequency with weather changes-- defer on adding a new preventati ve medication since this should be transient- - consider nerve blocks if this persists or unable to treat-- for now recommend Excedrine Migraine _ Topamax 1 tab at onset migraine (acute tx)-- avoid more than 10 analgesics per month Essential tremor 8312952 09 G25.0 Essential tremor; + FH tremor in her sister - TOpamax is helping- continue propranolo l 20 mg PRN- recent thyroid function low and now on higher Synthroid, had new labs today but doesn't know results.- PMH B12 deficiency 212; now alterntati ng B12 and B-complex; recommend she take B12 daily Generalized dystonia 425 213483 G24.8 54 yo RH woman with chronic pain issues ongoing for years including headaches, body pains, muscles spasms in shoulders and back. She has always tilted her head to the right and has pulling with head turing to the right. Left shoulder rests higher than the R and she has a mild scoliosis. She has always suffered with bruxism (as does her father) and she has a tremor, as does her sister. I suspect this is genetic, but can't be sure. Her handwritin g is getting smaller and her tone is increased both arms, she has decreased arm swing on the R and she is retropulsi ve. She suffers with RLS, depression , anxiety, OCD. Rarely she will note some drooling. She had SE to Sinemet - defer further trials at this time - counseled on the importance of exercise; encouraged to continue walking - RTC 3-4 months CC: Raquel Armas, [place] Fatigue 89309054 R53.83 Counseled pt that given new sx of paresthesi as, formicatio n in legs, RLS, she should avoid donating blood. Last B12 was 212 and she is not currently supplement ing other than hair formula which she started about a month ago- Counseled extensivel y about the importance of vitamin supplement ation particular ly given low B12, vit D and iron. Hair, Skin and Nails formula is insufficie nt.- continue DAILY B12 1000 mcg SL, and don't alternativ e it with B=complex- take B-complex daily as long as B6 < 25 mg- discuss iron supplement ation with PCP; get iron stores back to nomal and stop donating blood- continue vit D Depressive disorder 5616 9007 F32.9 Depression and anxiety. Counselled on potential depressive effects of propranolo l. Pt denies depression at this time but does admit to low mood, she feels related to fatigue - would avoid Wellbutrin which may worsen tremor Fibromyalgia M 79.7 She has fibromyalg ia, allergies and sinus disease. 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 [id number] CHRISTINA WASHINGTON MD NEUROLOGY [facility] [address] [facility] [address] [facility] [address] [place] [address] 02/04/2020 08:02:20 02/04/2020 12:05:43 Chronic tension-type headache [id number] G44.221 Tension type headaches, episodic migrainehe adaches overall have improved since sinus surgeryShe is still taking Excedrin everyday -- pt counseled that she is to avoid more than 10 doses per month - continue Topamax- avoid more than 10 analgesics per month- previous trial of Sinemet for hope it may help cervicogen ic or myofascial ly mediated; but SE pruritis- Continue turmeric w/black pepper- Continue CoQ10 300mg qam and magnesium oxide 400mg qhs- melatonin ER 1 to 2 mg- use peppermint oil or DoTerra: Past Tense topically to shoulders- Continue Flexeril- Continue propranolo l PRN- Continue to use antihistam ine, steroid nasal spray, and NeilMed Sinus Rinse- Continue krill oil Migraine with aura 74759 06 G43.109 rare ophthalmic migraine or migraine aura.- increased frequency with weather changes-- defer on adding a new preventati ve medication since this should be transient- - consider nerve blocks if this persists or unable to treat-- for now recommend Excedrine Migraine _ Topamax 1 tab at onset migraine (acute tx)-- avoid more than 10 analgesics per month Migraine without aura 56 108661 G43.009 Continue Topamax 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 B12 was 371 <-- 212 and now supplement ing with B12 1000 mcg SL She is also dealing with thryoid disease, elevated TPO, has endocrinol ogy consult in February 2020/ - Counseled extensivel y about the importance of vitamin supplement ation particular ly given low B12, vit D and iron. Hair, Skin and Nails formula is insufficie nt.- continue B12 1000 mcg SL daily- take B-complex daily as long as B6 < 25 mg- discuss iron supplement ation with PCP; get iron stores back to normal and commneded for stopping donating blood- continue vit D3 Depressive disorder 8125 4039 F32.9 Depression and anxiety. Counselled on potential depressive effects of propranolo l. Pt denies depression at this time but does admit to low mood, she feels related to fatigue - would avoid Wellbutrin which may worsen tremor Fibromyalgia M 79.7 She has fibromyalg ia, allergies and sinus disease. 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 She has always tilted her head and has pulling with head turning to the right, tilting. Left shoulder rests higher than the R and she has a mild scoliosis. She has always suffered with bruxism (as does her father) and she has a tremor, as does her sister. I suspect this is genetic, but can't be sure. Her handwritin g is getting smaller and her tone is increased both arms, she has decreased arm swing on the R and she is retropulsi ve. She suffers with RLS, depression , anxiety, OCD. Rarely she will note some drooling. Will begin preapprova l Botox for spasmodic torticolli s 11450 and symptomati c torsion dystonia 85166, 73308, preapprova l 600 u, begin 100 u to R>L LS, trap, L scalenes, SC - plan trunk, limb injections in coming months PRN She had SE to Sinemet - defer further trials at this time - counseled on the importance of exercise; encouraged to continue walking - RTC 6 months CC: Raquel Armas, [place] [id number] CHRISTINA WASHINGTON MD NEUROLOGY [facility] [address] [place] [address] 04/11/2020 09:33:44 04/11/2020 10:32:15 Spasmodic torticollis 49019339 G24.3 L laterocoll is - preapprove d for 4 visits, Botox 600 u through 03/05/2021 Initial Botox 100 u cervical only performed today 04/11/2020 - reassess 6 to assess efficacy - repeat injections in 12 weeks Symptomati c torsion dystonia 13809450 G24.2 54 yo RH woman with chronic pain issues ongoing for years including headaches, body pains, muscles spasms in shoulders and back. She has always tilted her head and has pulling with head turning to the right, tilting. Left shoulder rests higher than the R and she has a mild scoliosis. She has always suffered with bruxism (as does her father) and she has a tremor, as does her sister. I suspect this is genetic, but can't be sure. Her handwritin g is getting smaller and her tone is increased both arms, she has decreased arm swing on the R and she is retropulsi ve. She suffers with RLS, depression , anxiety, OCD. Rarely she will note some drooling. Requested preapprova l Botox for spasmodic torticolli s 81359 and symptomati c torsion dystonia 61330, 63692, preapprova l 600 u Initial Botox 100 units for cervcial 59447 only - plan trunk, limb injections in coming months PRN She had SE to Sinemet - defer further trials at this time - counseled on the importance of exercise; encouraged to continue walking - RTC 6 months CC: Raquel Armas APRN Bruxism [id number] F45.8 May add Botox to masseters when she next Botox for dystonia [id number] CHRISTINA WASHINGTON MD NEUROLOGY [facility] [address] [place] [address] 05/19/2020 09:27:42 05/19/2020 10:18:14 Spasmodic torticollis 77359513 G24.3 laterocoll is but painful hyperalges ic response to Botox and to previous nerve blocks/tri gger point injections - preapprove d for 4 visits, Botox 600 u through 03/05/2021 Initial Botox 100 u cervical only performed 04/11/2020 - repeat injections q 12 weeks Symptomati c torsion dystonia 24769491 G24.2 55 yo RH woman with chronic pain issues ongoing for years including headaches, body pains, muscles spasms in shoulders and back. She has always tilted her head and has pulling with head turning to the right, tilting. Left shoulder rests higher than the R and she has a mild scoliosis. She has always suffered with bruxism (as does her father) and she has a tremor, as does her sister. I suspect this is genetic, but can't be sure. Her handwritin g is getting smaller and her tone is increased both arms, she has decreased arm swing on the R and she is retropulsi ve. She suffers with RLS, depression , anxiety, OCD. Rarely she will note some drooling. 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 [id number] CHRISTINA WASHINGTON MD NEUROLOGY [facility] [address] [facility] [address] [place] [address] 09/18/2020 08:29:40 09/18/2020 10:10:56 Spasmodic torticollis 80244397 G24.3 laterocoll is but painful hyperalges ic response to Botox and to previous nerve blocks/tri gger point injections - preapprove d for 4 visits, Botox 600 u through 03/05/2021 Initial Botox 100 u cervical only performed 04/11/2020 - defer further injections due to 1+ month Symptomati c torsion dystonia 77040631 G24.2 55 yo RH woman with chronic pain issues ongoing for years including headaches, body pains, muscles spasms in shoulders and back. She has always tilted her head and has pulling with head turning to the right, tilting. Left shoulder rests higher than the R and she has a mild scoliosis. She has always suffered with bruxism (as does her father) and she has a tremor, as does her sister. I suspect this is genetic, but can't be sure. Her handwritin g is getting smaller and her tone is increased both arms, she has decreased arm swing on the R and she is retropulsi ve. She suffers with RLS, depression , anxiety, OCD. Rarely she will note some drooling. Initial Botox for spasmodic torticolli s 02191 100 units 03/28/2020; -- Will defer on further Botox at this time give hyperalges ic response to the procedure/ needles and increase her ropinirole . - increase ropinirole to 1 mg 3 tabs bid and 3-4 mg qhs -- try this dose for at least 2 weeks and if no benefit, then taper off the daytime dose; counseled on potential SE of compulsive behaviors, halluciant ions, dyskinesia s - will begin baclofen titrating to 10 mg tid, but advised to wait until she titrates the ropinirole and tapers if deciding not to stay on daytime dose - again, counseled on the importance of exercise; encouraged to continue walking - RTC 6 months >40 min appt with >50% in counseling PCP is Raquel Armas APRN Bruxism [id number] F45.8 Migraine without aura 56 683446 G43.009 Continue Topamax Maxalt-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 B12 was 371 <-- 212 , improved with B12 1000 mcg SL - resume B12 1000 mcg SL - resume CoQ10 200 mg daily - begin Igennus Super B-Complex - begin vitamin D3 3000 iu daily - continue MVI daily - follow closely with endocrinol ogy for thryoid disease, elevated TPO [id number] CHRISTINA WASHINGTON MD NEUROLOGY [facility] [address] [place] [address] 04/08/2021 09:56:06 04/08/2021 11:33:12 Migraine with aura 6338161 G43.109 rare ophthalmic migraine or migraine aura.- increased frequency with weather changes-- consider nerve blocks if this persists or unable to treat-- for now recommend Excedrine Migraine _ Topamax 1 tab at onset migraine (acute tx)-- avoid more than 10 analgesics per month Spasmodic torticollis 74 219030 G24.3 laterocoll is but painful hyperalges ic response to Botox and to previous nerve blocks/tri gger point injections - preapprove d for 4 visits, Botox 600 u through 03/05/2021 Initial Botox 100 u cervical only performed 04/11/2020 - defer further injections due to 1+ month Symptomati c torsion dystonia 21642581 G24.2 56 yo RH woman with chronic pain issues ongoing for years including headaches, body pains, muscles spasms in shoulders and back. She has always tilted her head and has pulling with head turning to the right, tilting. Left shoulder rests higher than the R and she has a mild scoliosis. She has always suffered with bruxism (as does her father) and she has a tremor, as does her sister. I suspect this is genetic, but can't be sure. Her handwritin g is getting smaller and her tone is increased both arms, she has decreased arm swing on the R and she is retropulsi ve. She suffers with RLS, depression , anxiety, OCD. Rarely she will note some drooling. Initial Botox for spasmodic torticolli s 02754 100 units 03/28/2020; -- Will defer on further Botox at this time give hyperalges ic response to the procedure/ needles and increase her ropinirole . - no benefit from ropinirole to 1 mg 3 tabs tid; will have her back down to 3-4 mg qhs for RLS only - recommend she resume baclofen at bedtime, and as tolerated, titrate to 10 mg tid, monitor BP- agree with Cymbalta, but it can potentiall y worsen dystonia, movement d/o- again, counseled on the importance of exercise; encouraged to continue walking - RTC 6 months 1 hour office visit 30 min evaluation 20 min counseling 8 min documentat ion2 min orders PCP is Raquel Camilo APRN Bruxism [id number] F45.8 bite guard Ophthalmic migraine 9565 5001 G43.B0 occurred only one time -- about 2016 she has never had recurrence and has never had migraine with aura - continue aspirin but increase to at least every other day - stay well hydrated - still on estradiol 0.05 mg/24 patch -- advised to use lowest possible estrogen dose, if you can lower to 0.025 -- that would be preferred -- she hasn't been back to discuss lowering the dose yet Fatigue 42094080 R53.83 Counseled pt that given new sx of paresthesi as, formicatio n in legs, RLS, she should avoid donating blood.I've recommende d she resume her vitamins from the past: B12 was 371 <-- 212 , improved with B12 1000 mcg SL - B12 1000 mcg SL - CoQ10 200 mg daily - Igennus Super B-Complex - vitamin D3 3000 iu daily - MVI daily- Krill oil -- this may help with dry eye - follow closely with endocrinol ogy for thryoid disease, elevated TPO Pain of mu ltiple joints 19769145 M25.50 diffuse joint pain x years, worsening over past 6 months; diffuse muscle pain since her 20s, dry eye, dry mouth, intermitte nt skin lesions/pl aques, corneal tear now on eye drops; + anti-TPO ab; negative RA- will check SSA/SSB- refer to rheum Cervicogenic headache 27 5392435 G44.89 - I demonstrat ed where she is to apply peppermint oil over tense muscles in neck and shoulder and overlying the occipital nerves at the base of the skull, over the temples and forehead taking care to avoid getting it in your eyes; wash hands after applicatio n- now on Cymbalta- also currently on Requip 3 mg tid and not helping -- advised to go back to 3-4 mg qhs only for RLS as it does not appear to help with muscle pain, dystonia Paresthesia 64047129 R20 .2 intermitte nt BUE/BLE, stumbling and falls, decrease vib only in L great toe- EMG LLE +/- RLE or BUE [id number] CHRISTINA WASHINGTON MD NEUROLOGY [address] [place] [address] 05/12/2021 13:20:56 05/12/2021 15:39:55 Skin sensation disturbance 07411265 R20.9 Recurrent falls 35153967 2 R29.6 [id number] SAIMA DEL ROSARIO APRN RHEUMATOL OGY [place] [address] 07/14/2021 09:57:05 07/14/2021 10:52:14 Pain of multiple joints 81981788 M25.50 chronic and recurring multiple joint pain and tenderenss with increased joint pain, fatigue and weakness overallwit h a negative ssa/b, though she does have sicca symptoms and xerostomia she had a neg rf so we will assess the hlab7 and the anti ccp ab todayshe si without synovitis, dactylitis , or joint effusions todaywill further send to ENT for salivary gland biopsy today Keratoconj unctivitis sicca 352282975 M35.01 ssa/b negativean a negative Xerostomia 59939306 K11. 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 Post-treat ment instructio n sheet given. Prescribed Tylenol #3 qty 15. Consent and LOLA obtained. follow up 2 weeks Dermatitis of external auditory canal 747443829 H60.92 Kenalog. 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 She will follow-up with rheumatolo gy for management . Dermatitis of external auditory canal 556057026 H60.92 Improved with kenalog. Use for flair-ups. [id number] SAIMA DEL ROSARIO APRN RHEUMATOL OGY [address] [place] [address] 08/14/2021 09:56:18 08/14/2021 13:07:01 Pain of multiple joints 53106148 M25.50 chronic and recurring multiple joint pain and tenderenss with increased joint pain, fatigue and weakness overallwit h a negative ssa/b, though she does have sicca symptoms and xerostomia she had a neg rf so we will assess the hlab7 and the anti ccp ab todayshe si without synovitis, dactylitis , or joint effusions todaywill further send to ENT for salivary gland biopsy today Keratoconj unctivitis sicca 270929643 M35.01 ssa/b negativean a negative Xerostomia 28657553 K11. 7 ssa/b negativean a negative Raynaud's phenomenon 266 995203 I73.00 Neck pain 53751496 M54.2 mild degenerati ve changes with neural foraminal narrowing Robbin thyroiditis 21 583142 E06.3 early 1999s Sj gren's syndrome 83155474 M35.00 per salivary gland biopsy [id number] CHRISTINA WASHINGTON MD NEUROLOGY [address] [place] [address] 10/06/2021 09:00:20 10/06/2021 10:22:05 Migraine with aura 4486299 G43.109 rare ophthalmic migraine or migraine aura.- increased frequency with weather changes-- consider nerve blocks if this persists or unable to treat-- for now recommend Excedrine Migraine _ Topamax 1 tab at onset migraine (acute tx)-- avoid more than 10 analgesics per month Spasmodic torticollis 74 724853 G24.3 laterocoll is but painful hyperalges ic response to Botox and to previous nerve blocks/tri gger point injections Initial Botox 100 u cervical only performed 04/11/2020 but with severe SE of pain in scalp/back of head - defer further injections due to 1+ month Symptomati c torsion dystonia 10006597 G24.2 56 yo RH woman with chronic pain issues ongoing for years including headaches, body pains, muscles spasms in shoulders and back. She has always tilted her head and has pulling with head turning to the right, tilting. Left shoulder rests higher than the R and she has levo scoliosis thoracic spine. She has always suffered with bruxism (as does her father) and she has a tremor, as does her sister. I suspect this is genetic, but can't be sure. Her handwritin g is getting smaller and her tone is increased both arms, she has decreased arm swing on the R and she is retropulsi ve. She suffers with RLS, depression , anxiety, OCD. Rarely she will note some drooling. Note she is also hypermobil e, cannot exclude dystonia secondary to a hypermobil ity syndrome, such as Ehler's Danlos. Initial Botox for spasmodic torticolli s units 03/28/2020; -- Will defer on further Botox given hyperalges ic response to the procedure/ needles and increase her ropinirole . - no benefit from ropinirole to 1 mg 3 tabs tid, now just taking 2-4 mg at bedtime for RLS - will increase baclofen up to tid-qid at bedtime, and as tolerated, titrate to 10 mg tid, monitor BP - again, counseled on the importance of exercise; encouraged to continue walking- will give a trial of PT - RTC 6 months with incoming neurologis t 40 min office visit face-to-fa ce20 min evaluation 12 min counseling 7 min documentat ion2 min orders Bruxism [id number] F45.8 bite guard Ophthalmic migraine 9565 5001 G43.B0 occurred only one time -- about 2015 she has never had recurrence and has never had migraine with aura - continue aspirin but increase to at least every other day - stay well hydrated - still on estradiol 0.05 mg/24 patch -- advised to use lowest possible estrogen dose, if you can lower to 0.025 -- that would be preferred -- she hasn't been back to discuss lowering the dose yet Fatigue 00672607 R53.83 Counseled pt that given new sx of paresthesi as, formicatio n in legs, RLS, she should avoid donating blood.I've recommende d she resume her vitamins from the past: B12 was 371 <-- 212 , improved with B12 1000 mcg SL - B12 1000 mcg SL - CoQ10 200 mg daily - Igennus Super B-Complex - vitamin D3 3000 iu daily - MVI daily- Krill oil -- this may help with dry eye - follow closely with endocrinol ogdanny for thryoid disease, elevated TPO Pain of mu ltiple joints 30232613 M25.50 diffuse joint pain x years, worsening over past 6 months; diffuse muscle pain since her 20s, dry eye, dry mouth, intermitte nt skin lesions/pl aques, corneal tear now on eye drops; + anti-TPO ab; negative RA- dx with Sjogrens by lip bx and following with Saima Del Rosario, on Plaquenil. Cervicogenic headache 27 3124096 G44.89 - I demonstrat ed where she is to apply peppermint oil over tense muscles in neck and shoulder and overlying the occipital nerves at the base of the skull, over the temples and forehead taking care to avoid getting it in your eyes; wash hands after applicatio n- now on Cymbalta- also currently on Requip 3 mg tid and not helping -- advised to go back to 3-4 mg qhs only for RLS as it does not appear to help with muscle pain, dystonia [id number] MARK ALMA MD PULMONARY [address] [facility], [address] [place] [address] 12/07/2021 13:38:41 12/07/2021 14:41:46 Solitary nodule of lung 694941879 R91.1 Former smoker with a 5 mm RLL non-calcif ied nodule on CT 04/08/21. Current Fleischner Society guidelines for a former smoker with a solitary nodule less than 6 mm in size are for an optional 12-month CT scan I will have her return in [address] chest. [id number] SAIMA DEL ROSARIO APRN RHEUMATOL OGY [address] [place] [address] 01/06/2022 09:22:31 01/06/2022 11:08:31 Sj gren's syndrome 11699414 M35.00 per salivary gland biopsy Pain of mu ltiple joints 66357394 M25.50 chronic and recurring multiple joint pain and tenderenss with increased joint pain, fatigue and weakness overallwit h a negative ssa/b, though she does have sicca symptoms and xerostomia she had a neg rf so we will assess the hlab7 and the anti ccp ab todayshe si without synovitis, dactylitis , or joint effusions today Keratoconj unctivitis sicca 588202629 M35.01 ssa/b negativean a negative Xerostomia 80198338 K11. 7 ssa/b negativean a negative Raynaud's phenomenon 266 444974 I73.00 Neck pain 99558640 M54.2 mild degenerati ve changes with neural foraminal narrowing Robbin thyroiditis 21 905318 E06.3 early 1999s Low back pain 673364475 M54.50 with worsening pain and tenderness of the spine since a lifting accident Long-term drug therapy 580429261 Z79.899 [id number] SAIMA DEL ROSARIO APRN RHEUMATOL OGY [address] [place] [address] 07/07/2022 10:12:03 07/07/2022 11:26:16 Sj gren's syndrome 27603617 M35.00 per salivary gland biopsy she is positive for sjogren's syndromewi th extragland ular features of joint pain, stiffness and swelling in the joints, Raynaud's phenomenon with dry eyes, dry mouth and other glandular drynessshe also has an overlap of robbin' s thyroiditi sshe will maintain hydroxychl oroquine 200 mgHer mother had a stroke and passed last December Pain of mu ltiple joints 91976907 M25.50 chronic and recurring multiple joint pain and tenderness with increased joint pain, fatigue and weakness overallwit h a negative ssa/b, though she does have sicca symptoms and xerostomia she had a neg rf hlab7 and anti ccp abshe si without synovitis, dactylitis , or joint effusions today Keratoconj unctivitis sicca 300741158 M35.01 ssa/b negativean a negative Xerostomia 12583998 K11. 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 Long-term drug therapy 081386413 Z79.899 [id number] ROXANE BEARD MD [facility] [address] [place] [address],[place] [address] 09/16/2022 14:07:55 09/17/2022 14:00:08 Ureteric stone 80574231 N20.1 Renal colic 1216373 N23 [id number] ROXANE BEARD MD SURGERY SCHEDULE [address] [place] [address] 09/21/2022 13:05:24 09/21/2022 13:06:18 Ureteric stone 52427343 N20.1 [id number] ROXANE BEARD MD [address] [place] [address] 09/24/2022 10:16:38 10/01/2022 10:53:54 Ureteric stone 90746325 N20.1 Renal colic 5542299 N23 [id number] AMY JESSICA MD NEUROLOGY [address] [place] [address] 1 10/26/2022 08:24:16 10/26/2022 09:13:05 Migraine 04193078 G43.909 Tremor 97003425 R25.1 Fibromyalgia 730587193 M 79.7 Chronic te nsion-type headache 993385032 G44.229 [id number] MARK LAMA MD PULMONARY [address] [facility], [address] [place] [address] 11/22/2022 09:33:12 11/22/2022 13:00:16 Solitary nodule of lung 379269761 R91.1 Former smoker with a 5 mm RLL non-calcif ied nodule on CT 04/08/21. Current Fleischner Society guidelines for a former smoker with a solitary nodule less than 6 mm in size are for an optional 12-month CT scan Repeat CT 11/03/2022: Stable 5 mm report of stable 5 mm right upper lobe nodule. Stable smaller partially calcified nodules. No mention of right lower lobe nodule. Given that all nodules present on her CT scan in October 2022 are reported as stable and unchanged compared to her CT scan 18 months prior, I do not think she needs any more surveillan ce imaging for these findings [id number] BERNABE BEARD APRN ENDOCRINO LOGY [address] [place] [address] 11/24/2022 09:02:47 11/24/2022 09:44:45 Hypothyroidism 22252517 E03.9 -Repeat TFTs today. -Currently taking Synthroid 112mcg every AM. Patient was instructed on the appropriat e method of levothyrox ine administra tion. Take this medication every morning on an empty stomach 30-60 minutes prior to other food, drinks or medication s. PPI and calcium-co ntaining preparatio ns are preferred to be given at least four hours before or after levothyrox ine therapy. -Follow up in 3-6 months or sooner if needed.- Pt prefers 90-day supply0 -Patient verbalized understand ing and agreed with plan. All questions answered. Menopausal symptom 45846 002 N95.1 -Pt reports worsening of insomnia, sweats, etc. She requests to check reproducti ve hormones. Advised pt that we do not offer HRT in this office and that she would need to follow up with her BI DEVELOPER. She verbalized understand ing. 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 per salivary gland biopsy she is positive for sjogren's syndromewi th extragland ular features of joint pain, stiffness and swelling in the joints, Raynaud's phenomenon with dry eyes, dry mouth and other glandular drynessshe also has an overlap of robbin' s thyroiditi sshe will maintain hydroxychl oroquine 200 mglast eye exam was 2 years ago; we discussed making appointmen t soonfollow up with Saima Del Rosario APRN in 6 months Pain of mu ltiple joints 95474871 M25.50 chronic and recurring multiple joint pain and tenderness with increased joint pain, fatigue and weakness overallwit h a negative ssa/b, though she does have sicca symptoms and xerostomia she had a neg rf hlab7 and anti ccp abshe is without synovitis, dactylitis , or joint effusions today Keratoconj unctivitis sicca 262668019 M35.01 ssa/b negativean a negativepe r salivary gland biopsy she is positive for sjogren's syndrome Xerostomia 85216068 K11. 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 -Currently taking Synthroid 112mcg every AM. Patient was instructed on the appropriat e method of levothyrox ine administra tion. Take this medication every morning on an empty stomach 30-60 minutes prior to other food, drinks or medication s. PPI and calcium-co ntaining preparatio ns are preferred to be given at least four hours before or after levothyrox ine therapy. -Follow up in 3-6 months or sooner if needed.- Pt prefers 90-day supply. -Patient verbalized understand ing and agreed with plan. All questions answered. [id number] SAIMA DEL ROSARIO APRN RHEUMATOL OGY [address] [place] [address] 07/04/2023 09:26:09 07/05/2023 04:40:26 Sj gren's syndrome 51366249 M35.00 per salivary gland biopsy she is positive for sjogren's syndromewi th extragland ular features of joint pain, stiffness and swelling in the joints, Raynaud's phenomenon with dry eyes, dry mouth and other glandular drynessshe also has an overlap of robbin' s thyroiditi s Intermitte nt Constipati on and diarrhea occurring more frequently . she will maintain hydroxychl oroquine 200 mg Eye exam completed recently with negative exam. opthamolog y has advised patient to follow up every 6 months since taking hydroxychl oroquine. 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 Synthroid increased to 125 mcg daily. Long-term drug therapy 373691598 Z79.899 will obtain outside labs and then have further labs obtained if needed [id number] ROXANE BEARD MD [facility] [address] [place] [address] ,[address] [place] [address] 09/22/2023 13:02:05 09/25/2023 04:02:37 Overactive urinary bladder 735244972 N32.81 Kidney stone 06932390 N2 0.0 [id number] AMY JESSICA MD NEUROLOGY [address] [place] [address] 10/26/2023 09:08:55 10/26/2023 10:13:21 Migraine 07319327 G43.909 Essential tremor 0916091 09 G25.0 Restless legs 15001197 G 25.81 [id number] [place] [address] [place] [address] 11/16/2023 08:50:57 11/16/2023 09:16:28 Hypothyroidism 89297530 E03.9 -Repeat TFTs today. -Currently taking Synthroid 125mcg every AM. Patient was instructed on the appropriat e method of levothyrox ine administra tion. Take this medication every morning on an empty stomach 30-60 minutes prior to other food, drinks or medication s. PPI and calcium-co ntaining preparatio ns are preferred to be given at least four hours before or after levothyrox ine therapy.-M ay consider T3 or armour. -Follow up in 3-6 months or sooner if needed.- Pt prefers 90-day supply. -Patient verbalized understand ing and agreed with plan. All questions answered. Fatigue 29910561 R53.83 -Evaluate with labs as below. [id number] BERNABE BEARD APRN ENDOCRINO LOGY SB [address] [place] [address] 05/09/2024 09:13:59 05/09/2024 09:47:51 Hypothyroidism 23934315 E03.9 -Repeat TFTs today. -Currently taking Synthroid 125mcg every AM. Patient was instructed on the appropriat e method of levothyrox ine administra tion. Take this medication every morning on an empty stomach 30-60 minutes prior to other food, drinks or medication s. PPI and calcium-co ntaining preparatio ns are preferred to be given at least four hours before or after levothyrox ine therapy.-M ay consider T3. -Follow up in 3-6 months or sooner if needed.- Pt prefers 90-day supply. -Patient verbalized understand ing and agreed with plan. All questions answered. Fatigue 87204161 R53.83 -Evaluate with labs as below. [id number] MD [facility] [address],[place] [address] 06/21/2024 16:01:54 06/21/2024 16:53:57 Overactive urinary bladder 815676219 N32.81 Kidney stone 55078614 N2 0.0 Urinary tr act infectious disease 66527488 N39.0 [id number] ROXANE BEARD MD [facility] [address] [address] 07/26/2024 13:57:10 07/26/2024 18:44:36 Overactive urinary bladder 357197153 N32.81 Kidney stone 30374877 N2 0.0 Urinary tr act infectious disease 47584711 N39.0 UA good send for culture as precaution [id number] SAIMA DEL ROSARIO APRN RHEUMATOL OGY [address] [place] [address] 09/17/2024 09:26:47 09/18/2024 04:18:52 Sj gren's syndrome 84741505 M35.00 per salivary gland biopsy she is positive for sjogren's syndromewi th extragland ular features of joint pain, stiffness and swelling in the joints, Raynaud's phenomenon with dry eyes, dry mouth and other glandular drynessshe also has an overlap of robbin' s thyroiditi s she will maintain hydroxychl oroquine 200 mg Eye exam completed recently with negative exam. opthamolog y has advised patient to follow up every 6 months since taking hydroxychl oroquine. Keratoconj unctivitis sicca 113277686 M35.01 ssa/b negativean a negative Xerostomia 57065116 K11. 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 Synthroid increased to 125 mcg daily. Long-term drug therapy 377560722 Z79.899 needs labs today Muscle pain 94232992 M79 .10 able to stand without pushing up [id number] MD [facility] [address],[place] [address] 11/29/2024 13:24:08 11/29/2024 19:04:46 Kidney stone 74259873 N20.0 Overactive urinary bladder 945566963 N32.81 Health Concerns Section Related Observation LastModified by Organization Detai ls LastModified Time None Recorded Concern Status LastModified by Organization Details LastModified Time None Recorded Advance Directives Directive None Recorded Payers Insurance Date Sequence Insurance Name Policy Number Policy Boone Covered Member ID Boone Member ID Guarantor Name 12/10/2024 2 [place] [id number] 1 Zena Chin [id number] Zena Chin 11/30/2024 1 [place] [id number] 1 Zena Chin [id number] Zena Chin 12/10/2024 GENERIC INSURANCE - MOVED-HOLD Zena Chin Notes Date Note Type Note Provider Name and Address Organization Details Recorded Time 05/09/2024 text/html Mrs. Chin is a 59 year old female patient with a past medical history of Robbin's hypothyroidism, sjogrens, who is seen at the office today for a follow up. Hx: Patient was diagnosed with hypothyroid since [address] Chung. Previously followed by Dr. Morgan. She has taken levothyroxine since that time. UTT generic/ineffective , variable thyroid levels. At last visit, we continued Synthroid 125mcg daily. PT reports compliance. No significant change in symptoms. Reports extreme fatigue, heat intolerance, physical activity intolerance. Comprehensive panel from PCP to look for lupus. Currently on HRT. Family history of CVA. Went for home sleep study, mostly normal, some drops in O2 sats at night.Vivid dream, unable to get restful sleep, 8-9 hours per night during the week and 16+ hours on weekends (plus naps). Also, has pain that interferes with sleep (followed by rheumatology). Mostly water, limiting caffeine. Reviewed labs on pt's phone: Thyrotropin (TSH) 0.28L, 1.11 (03/2023) Previous thyroid ultrasound: No Associated Symptoms:General: no heat intolerance; no cold intolerance; no weight loss;EENT: no dry eyes; no vision changes; no hoarseness; no difficulty swallowing;Cardiac: no fast heart rate; no increased blood pressure; no palpitations; no chest pain; no chest tightness or pressure;Pulm: no shortness of breath;GI/: no diarrhea; no vomiting; no decreased appetite; no loose stools;Neuro: no numbness/tingling of the hands or feet; no tremor; no headaches;Psych: no hypoglycemia; no hypertension;Endo: no diabetes; no excessive appetite; no excessive thirst; no excessive urination; no excessive sweating; Reports: extreme temperature intolerance; dry eyes (sjogrens); joint pain (stable); constipation (stable); anxiety (controlled on meds with psych and therapist, bipolar); hair loss (stable); insomnia (on ambien); chronic fatigue (all the time, worse in morning); 3lb weight gain since last visit; dry skin; BERNABE BEARD APRN [address] [place] [address], [phone], [facility] 05/09/2024 09:50:34 06/21/2024 text/html 59-year-old isabel patino in the office for follow-up evaluation of urolithiasis and overactive bladder symptoms. Patient reports spasm pain at the end of urination and malodorous urine for the last 3 weeks with a previous episode that resolved about 3 months ago. Daytime urination highly variable from perhaps 2x a day to every 30-45 minutes for several hours at a time, nocturia 1-2x. She has taken AZO with relief of symptoms. ROXANE BEARD MD [address] [place] [address], [phone], [facility] 07/08/2024 17:54:53 07/26/2024 text/html 59-year-old isabel patino in the office for follow-up evaluation of urolithiasis and overactive bladder symptoms. Patient reports spasm pain at the end of urination and malodorous urine for the last 3 weeks with a previous episode that resolved about 3 months ago. Daytime urination highly variable from perhaps 2x a day to every 30-45 minutes for several hours at a time, nocturia 1-2x. She has taken AZO with relief of symptoms. She has discontinued oxybutynin. Urine Culture 06/21/24Escherichia coli, treated with levofloxacin ROXANE BEARD MD [address] [place] [address], [phone], [facility] 08/05/2024 23:11:44 09/17/2024 text/html patient returns after being absent for over a year with sjogren's follow up; she is having increased muscle pain and tenderness; she feels like she has no muscle tone; she has a lot of neck and shoulder pain; she continues with increased pain and tenderness; she has a lot of fatigue; she has muscle weakness with her large muscles and cannot squat at all; she is without interval infections; she denies all others SAIMA DEL ROSARIO APRN [address] [place], [phone], [facility] 09/17/2024 10:02:23 11/29/2024 text/html 59-year-old femebonie le in the office for follow-up evaluation of urolithiasis and overactive bladder symptoms. Patient reports daytime frequency 3x daily, she feels she drinks plenty of fluid though recently, perhaps less, nocturia 1x, no hesitancy/straining . KUB 11/20/24IMPRESSION: Several right-sided renal calculi measuring up to 3 mm similar to prior exam. Lab Results 09/17/24creatinine= 0.9GFR= 74 ROXANE BEARD MD [address] [place], [phone], [facility] 12/09/2024 20:13:34 OBGyn Episode No OBEpisode recorded.
--- OUTSIDE RECORDS SUMMARY | 2025-04-08 14:04 | XMS_ITS | Referral Summary ---
Author Organization [facility] [email or web address] Address [address] [place] [id number] Care Team Providers Care Desk Pen Set Assembler Name Role Phone Unavailable Primary Care Provider [...]
[2025-04-08 14:24] VITALS: BP 153/90; PULSE 118; RESP 18; O2SAT 99; BMI 24.8
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
== END 2025-04-08 23:59 | disposition home or self-care (01) ==
LOC: SC.PAIN 14:01
PROVIDERS: PCP Emergency Medicine; Visit Provider Nurse Practitioner Family
DX: M50.10 Cervical disc disorder with radiculopathy, unspecified cervical region (principal)
CPT/HCPCS: 99202; G0463

== ENCOUNTER 2025-05-07 13:02 | Day surgery (SDC) | payer BC, SELFPAY ==
[2025-05-07 13:08] VITALS: BP 142/85; PULSE 92; RESP 18; O2SAT 100; BMI 25.0
[2025-05-07 13:14] VITALS: BP 142/85; PULSE 118; RESP 18; O2SAT 100
[2025-05-07] MEDS: DEXAMETHASONE 10MG/ML 1ML VIAL 10 MG (13:14)
[2025-05-07 13:15] VITALS: BP 142/85; PULSE 118; RESP 18; O2SAT 100
--- NOTE | 2025-05-07 13:20 | P.PCN_ITS ---
Procedure Date: 05/07/25 Time: 13:00 Anesthesiologist:: Charlie Gavin CRNA Complications:: None Pre-procedure Diagnosis:: Degenerative disc cervical spine multilevels. Cervical radiculopathy Post-procedure Diagnosis:: Same. Indications for Procedure:: Patient is a pleasant 60-year-old female who comes our clinic today for cervical epidural steroid injection. Patient describes posterior cervical neck pain as well as bilateral shoulder and arm radicular symptoms. Also headaches. Occip ital pain. She rates her pain 7/10. Procedure Details:: Procedure:Cervical epidural steroid injection Informed consent was obtained and the risks and benefits of the procedure were explained to the patient. The patient was taken to the procedure room and noninvasive monitors placed, including noninvasive blood pressure cuff and pulse oximeter. The neck was prepped using Chloraprep as a cleansing solution. The C6- C7 interspace was viewed using fluroscopy. The skin and subcutaneous tissues were anesthetized using lidocaine 1.5% and a 25-gauge needle. After this an 18- gauge Touhy epidural needle was placed into the C6-C7 interspace under fluroscopy guidance and advanced using loss of resistance to air until the epidural space was encountered. After confirmation of needle placement in the epidural space using contrast dye, dexamethasone 10 mg ( 1 ML) was incrementally injected into the cervical epidural space.~ The patient tolerated the procedure well with no complications. The patient was observed in the Pain Clinic and then discharged home neurologically intact. Plan and Disposition:: Patient was discharged without incident.
[2025-05-07 13:22] VITALS: BP 133/85; PULSE 87; RESP 18; O2SAT 100
[2025-05-07] MEDS: IOPAMIDOL-200 (41%);10ML VIAL 3 ML IV (13:34)
== END 2025-05-07 13:22 | disposition home or self-care (01) ==
PROVIDERS: PCP Emergency Medicine; Visit Provider Nurse Anesthetist, Certified Registered
DX: M50.30 Other cervical disc degeneration, unspecified cervical region (principal); M54.12 Radiculopathy, cervical region; M48.02 Spinal stenosis, cervical region; F41.9 Anxiety disorder, unspecified; F32.A Depression, unspecified; F90.9 Attention-deficit hyperactivity disorder, unspecified type; M79.7 Fibromyalgia; Z88.1 Allergy status to other antibiotic agents; Z79.890 Hormone replacement therapy; Z79.899 Other long term (current) drug therapy
CPT/HCPCS: 62321; J1100; Q9966

== ENCOUNTER 2025-05-27 15:11 | Outpatient (POV) | payer BC, SELFPAY ==
--- OUTSIDE RECORDS SUMMARY | 2025-05-27 15:14 | XMS_ITS | Patient Health Record ---
Author Organization [facility] ([facility] Address [address] [place] [address] Care Team Providers Care Warranty Administrator Name Role Phone Mary Watts Unavailable [phone] Allergies Allergen (clinical drug ingredient) Drug/Non Drug Allergy documented on EMR Reaction Allergy Type Onset Date Status erythromycin Erythromycin rash Drug Allergy A ctive bacitracin / neomycin / polymyxin B NEOSPORIN ORIGINAL rash Drug Allergy 02/21/2014 Active POLYSPORIN (uncoded) rash Allergy 4 Active Results Component Value Reference Range Notes Pap w/reflex HPV Reviewed date:08/14/2024 08:19:52 PM Interpretation: Performing Lab:[facility] - [place]ATIE CLIA ID [id number], [address], [address], [place] [address], Director - Carola Toscano MD Notes/Report: Any Nucleic Acid Amplification testing is performed on the [employer]. Diagnosis: Negative for intraepithelial lesion or malignancy. AP results Autoglazier LMP: unknown Pertinent Clinical History/History of Surgery: Not provided CPT Codes: 85242 Satisfactory for interpretation with endocervical/transformat ion zone component present. Gilda James FIN[employer]QUIPMENT [employer]IC CYTOLOGY REPORT Screening note: This specimen has been analyzed by the ThinPrep Imaging System, an interactive computer system which assists the lab in screening of ThinPrep Pap Test slides. Following imaging, the slide was reviewed by a Autoglazier and/or Pathologist. Other Gynecological Patient Information: Not [...] Specimen Adequacy: ICD Codes: Z01.419 Collection Technique: Randolph-Spatula Specimen Type: ThinPrep Recommendation: Follow-up based on [...] Problem Status W/U Status Risk Notes Problem Postmenopausal bleeding (38047640) Postmenopausal bleeding (N95.0) Active confirmed Problem Abnormal vaginal bleeding in postmenopausal patient (N95.0) Active confirmed Problem Cervical smear, as part of routine gynecological examination (Z01.419) 020 Active confirmed Annual without abnormal findings Vital Signs Heart Rate 110 /min 08/08/2024 Oximetry 99 % 08/08/2024 Blood pressure diastolic 62 mm Hg 08/08/2024 Height 65 in 08/08/2024 Blood pressure systolic 100 mm Hg 08/08/2024 Weight 151.0 lbs 08/08/2024 BMI 25.12 kg/m2 08/08/2024 Encounters Encounter Location Date Provider Diagnosis [facility] [email or web address] [place] [address] 11/08/2024 Mary Loboett Decreased libido R68 .82 [facility] [email or web address] [place] [address] 08/08/2024 Mary Watts Cervical smear, as p art of routine gynecological examination Z01.419 and Decreased libido R68.82 Assessments Encounter Date Diagnosis (ICD Code) Assessment Notes Treatment Notes Treatment Clinical Notes Section Notes 08/08/2024 Decreased libido (ICD-10 - R68.82) 08/08/2024 Cervical smear, as part of routine gynecological examination (ICD-10 - Z01.419) 11/08/2024 Decreased libido (ICD-10 - R68.82) Plan Of Treatment Next Appt Details Provider Name:Mary Watts, 08/09/2025 10:15:00 AM, [address], [place], [address], Insurance Providers Payer Name Payer Address Payer Phone Subscriber Number Group Number Insured Name Patient Relationship to Insured Coverage Start Date Coverage End Date [employer] PPO [address] [place] [address] [phone] [id number] Zena Chin Self - patient is the insured Medical (General) History Medical History History ICD Code depression migraines hashimotos RLS Sjogrens s anxiety arthritis hypothyroidism Surgical History Surgery Date(Month/Year) carpal tunnel tubal LEEP of cervix septoplasty blepharoplasty breast biopsy Hospitalization History Reason Date(Month/Year) blepharoplasty septoplasty tubal carpal tunnel
--- OUTSIDE RECORDS SUMMARY | 2025-05-27 15:14 | XMS_ITS | Clinical Summary ---
Author Organization [employer] ([place], [place], [place], [place]) Address [address] [place] [address] Care Team Providers Care Station Cleaning Porter Name Role Phone Unavailable Primary Care Provider [...]
--- OUTSIDE RECORDS SUMMARY | 2025-05-27 15:14 | XMS_ITS | Clinical Summary ---
Author Organization Healthcare Address [address] [place] [address] Care Team Providers Care Ruby On Rails Web Developer Name Role Phone Chance Schafer MD Primary Care Provider [phone] Social History Tobacco Use Types Packs/Day Years Used Date Smoking Tobacco: Never Assessed Comments Unknown Sex and Gender Information Value Date Recorded Sex Assigned at Not on file Legal Sex Female 8:13 PM EDT Gender Identity Not on file Sexual Orientation Not on file Plan of Treatment Upcoming Encounters Date Type Department Care Team (Late st Contact Info) Description 06/28/2025 10:00 AM EDT Office Visit [facility] [address] [place] [address] Helen Duke, TITLE CL[employer]ER [address] [place] [address] Health Maintenance Due Date Last Done Comments [facility]-Depression Screening 1967 [facility]-HIV Screening 1967 [facility]-Hepatitis C Screening 1967 [facility]-Infant/Child/Adol SDOH Screenings 1967 [facility]- SDOH Screenings 1985 [facility]-Adult SDOH Screenings 1985 [facility]-Hepatitis B Vaccines (1 of 3 - 19+ 3-dose series) 1986 [facility]-Pap Smear 1988 [facility]-Cervical Cancer Screening 1997 [facility]-HPV/Cotest 1997 [facility]-DTaP,Tdap,and Td Vaccine s (1 - Tdap) 03/17/2001 03/16/2001 CT Colonography 2012 Colonoscopy 2012 FIT-DNA 2012 FIT 2012 FOBT 2012 Sigmoidoscopy 2012 [facility]-Colorectal Cancer Screening 2012 [facility]-Breast Cancer Screening 2017 [facility]-Pneumococcal Vaccine: 50 + Years (1 of 1 - PCV) 2017 [facility]-Zoster Vaccines (1 of 2) 2017 [id number] Vaccine (3 - season) 2024 06/25/2021, 05/26/2021 [facility]-Influenza Vaccine (#1) 2025 HPV Vaccines Aged Out No longer eligi ble based on patient's age to complete this topic [facility]-HIB Vaccines Aged Out No longer e ligible based on patient's age to complete this topic [facility]-Hepatitis A Vaccines Aged Out No longer eligible based on patient's age to complete this topic [facility]-IPV Vaccines Aged Out No longer e ligible based on patient's age to complete this topic [facility]-Rotavirus Vaccines Aged Out No lo nger eligible based on patient's age to complete this topic Care Teams Ruby On Rails Web Developer Relationship Specialty Start Date End Date Chance Schafer MD [address] [place] [address] PCP - General 02/27/21
--- OUTSIDE RECORDS SUMMARY | 2025-05-27 15:14 | XMS_ITS | Clinical Summary ---
Author Organization [facility] Address [address] [place] [address] Care Team Providers Care Field Artillery Radar Operator Name Role Phone Handy Bloom MD Primary Care Provider [phone] Allergies Active Allergy Reactions Criticality Noted Date Comments Neomycin 12/07/2016 Neomycin-Bacitracin Zn-Polymyx Rash Low 12/07 Bacitracin-Polymyxin B 12/07/2016 Spironolactone Palpitations High 12/07/2016 Medications topiramate (TOPAMAX) 50 MG tablet 1 po in the am and 2 po in the pm 1 12/03/19 17 Active propranolol (INDERAL) 20 MG tablet As Needed. 1 12/03/19 17 Active rOPINIRole (REQUIP) 3 MG tablet 3 mg Every Night. 0 12/01/19 17 Active albuterol sulfate HFA 108 (90 Base) MCG/ACT inhaler As Needed. Act paul aspirin-acetaminop hen-caffeine (Excedrin Migraine) 250-250-65 MG per tablet As Needed. Active baclofen (LIORESAL) 10 MG tablet 3 (Three) Times a Day. 12/10/19 21 Active ciprofloxacin (CILOXAN) 0.3 % ophthalmic solution As Needed. 09/30/20 20 Active estradiol (CLIMARA) 0.05 MG/24HR patch estradiol 0.05 mg/24 hr weekly transdermal patch Active levocetirizine (XYZAL) 5 MG tablet Take 5 mg by mouth Daily. 12/17/19 21 Active medroxyPROGESTERon e (PROVERA) 5 MG tablet Take 5 mg by mouth Daily. 10/13/20 20 Active montelukast (SINGULAIR) 10 MG tablet Take 10 mg by mouth Every Evening. 10/14/20 20 Active mupirocin (BACTROBAN) 2 % ointment APPLY DIRECTED TWICE DAILY 10/29/19 21 Active sertraline (ZOLOFT) 100 MG tablet Take 100 mg by mouth Daily. 12/10/19 21 Active rizatriptan COPY CLERK (MAXALT-COPY CLERK) 10 MG disintegrating tablet As Needed. Active Bacillus Coagulans-Inulin (Probiotic) 1-250 BILLION-MG capsule As Needed. Active ARIPiprazole (ABILIFY) 5 MG tablet 05/13/20 21 Active lamoTRIgine (LaMICtal) 25 MG tablet 50 mg. 25 mg po bid 04/27/20 21 Active Sod Picosulfate-Mag Ox-Cit Acd 10-3.5-12 MG-GM -GM/160ML solutionIndication s:Screen for colon cancer Take 320 mL by mouth Take As Directed. Follow instructions mailed to your home. If you didn't receive instructions; call [phone]. 320 mL 11/17/19 22 Active Synthroid 112 MCG tablet TAKE 1 TABLET BY MOUTH DAILY 90 tablet 3 05/05/20 22 Active naproxen (EC NAPROSYN) 500 MG EC tablet Take 1 tablet by mouth 2 (Two) Times a Day As Needed (pain). 20 tablet 03/12/20 23 Active famotidine (PEPCID) 20 MG tablet Take 1 tablet by mouth 2 (Two) Times a Day. 20 tablet 03/12/20 23 Active HYDROcodone-acetam inophen (NORCO) 5-325 MG per tabletIndications: Atypical chest pain Take 1 tablet by mouth Every 6 (Six) Hours As Needed for Severe Pain. 10 tablet 03/12/20 23 Active Active Problems Problem Noted Date Diagnosed Date Hypocalcemia 05/18/2021 Assessment & Plan (05/18/2021 12:07 PM EDT): She had low calcium on labs recently. I would like to check further labs today. Will contact her with results. 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 Check TSH today. Assessment & Plan (01/07/2021 3:44 PM EDT): Check TFTs and TPO abs. Continue synthroid. Hair loss 12/07/2016 Chronic fatigue 12/07/2016 Assessment & Plan (01/07/2021 3:43 PM EDT): Says she feels like crap. Asks that we check more labs today. Family History Medical History Relation Name Comments Arthritis Father Cancer Father bladder Skin cancer Father Autoimmune disease Maternal Aunt Cancer Maternal Grandfather Lung cancer Maternal Grandfather Arthritis Mother Autoimmune disease Mother Hypothyroidism Mother Liver disease Mother Breast cancer Paternal Aunt Cancer Paternal Aunt Cancer Paternal Grandfather Prostate cancer Paternal Grandfather Skin cancer Paternal Grandfather Fibromyalgia Sister Rheum arthritis Sister Relation Name Status Comments Father Alive Maternal Aunt Alive Maternal Grandfather Maternal Grandmother Mother Alive Paternal Aunt Alive Paternal Grandfather Paternal Grandmother Sister Alive Social History Tobacco Use Types Packs/Day Years Used Date Smoking Tobacco: Former Smokeless Tobacco: Never Alcohol Use Standard Drinks/Week Comments Yes 2 (1 standard drink = 0.6 oz pur e alcohol) daily Abuse Screen Answer Date Recorded Unsafe at Home or Work/School Not on file Feels Threatened by Someone? Not on file Does Anyone Keep You from Co ntacting Others or Doint Things Outside the Home? Not on file 03/15/2024 Physical Sign of Abuse Present Not on file 0 03/15/2024 Housing Stability Answer Date Recorded Current Living Arrangements Not on file 06/2023 Potentially Unsafe Housing Conditions Not on junior e 07/25/2023 Family and Community Support Answer Gallo e Recorded Help with Day-to-Day Activities Not on file 07/25/2023 Lonely or Isolated Not on file 07/25/2023 Employment Answer Date Recorded Do you want help finding or keeping work or a carlo b? Not on file 07/25/2023 Disabilities Answer Date Recorded Concentrating, Remembering, or Making Decisions Difficulty Not on file 07/25/2023 Doing Errands Independently Difficulty Not on fi le 07/25/2023 Education Answer Date Recorded Help with school or training? Not on file Preferred Language Not on file 07/25/2023 Comments No Sex and Gender Information Value Date Recorded Sex Assigned at Not on file Legal Sex Female 12:02 PM EDT Gender Identity Not on file Sexual Orientation Not on file Last Filed Vital Signs Vital Sign Reading Time Taken Comments Blood Pressure 143/93 03/11/2023 10:20 PM EDT Pulse 85 03/11/2023 10:20 PM EDT Temperature 36.7 C (98.1 F) 03/11/2023 10:20 PM EDT Respiratory Rate 20 03/11/2023 10:20 PM EDT Oxygen Saturation 100% 03/11/2023 10:20 PM EDT Inhaled Oxygen Concentration - - Weight 72.6 kg (160 lb) 03/11/2023 10:20 PM EDT Height 167.6 cm (5' 6 ) 03/11/2023 10:20 PM EDT Body Mass Index 25.82 03/11/2023 10:20 PM EDT Plan of Treatment Health Maintenance Due Date Last Done Comments Annual Gynecologic Pelvic and Breast Exam 1965 MAMMOGRAM 2007 TDAP/TD VACCINES (2 - Tdap) 03/16/2011 03/16/2001 COLOGUARD 2012 COLON CANCER SCREENING [address]MO[address] COLONOGRAPHY 2012 FECAL OCCULT BLOOD TEST 2012 FIT Testing (1 year) 2012 Pneumococcal Vaccine 50+ (1 of 1 - PCV) 2017 ZOSTER VACCINE (1 of 2) 2017 ANNUAL PHYSICAL 01/07/2021 COVID-19 Vaccine ( season) 06/17/202406/2021, 05/26/2021 INFLUENZA VACCINE 07/17/2025 COLONOSCOPY 12/18/2031 12/17/2021 COLORECTAL CANCER SCREENING 12/18/2031 HEPATITIS C SCREENING Completed 03/07/2015 Procedures Procedure Name Priority Date/Time Associated Diagnosis Comments SCANNED - COLONOSCOPY 12/17/2021 HEPATITIS PANEL, ACUTE Routine 03/07/2015 10:16 AM EDT from Last 3 Months or Most Recently Relevant to Health Maintenance Results * SCANNED - COLONOSCOPY (12/17/2021) Armand Carter MD CHART REVIEW TABS Final Res ult * Hepatitis panel, acute (03/07/2015 10:16 AM EDT) Hepatitis B Surface Ag NonReactive NONREACTIVE [facility] Comment: DF by IF @ 03/07/2015 13:19 TEST INFORMATION: Hepatitis B Surface Antigen The intended use of this Hepatitis B Surface Antigen assay is for clinical diagnosis only. Hep A IgM NonReactive NONREACTIVE [facility] Hep B Core IgM NonReactive NONREACTIVE [facility] Comment: DF by IF @ 03/07/2015 13:19 TEST INFORMATION: Hepatitis B Core Antibody, IgM The intended use of this Hepatitis B Core Antibody, IgM assay is for clinical diagnosis only. Hep C Virus Ab NonReactive NONREACTIVE [facility] Comment: DF by IF @ 03/07/2015 13:19 The signal to cutoff ratio (S/C) for the Hepatitis C antibodies is: Greater Than or Equal to 11.0 TEST INFORMATION: Hepatitis C Virus Antibody This test is performed using chemiluminescent immunoassay (MARKELL). Anti-HCV Signal Cutoff (S/C) Ratios (MARKELL): Less than 0.8 ................. NonReactive 0.80 to 1.00 .................. Equivocal Greater than 1.00 ............. Reactive This assay is intended for clinical diagnosis only. Blood specimen (specimen) 03/07/2015 10:16 AM EDT Narrative [facility] - 03/07/2015 1:19 PM EDT Specimen Type: Blood Mary Watts MD LAB BLOOD ORDERABLES Final Result [facility] [address] [place] [address], [place] [phone] from Last 3 Months or Most Recently Relevant to Health Maintenance Insurance [employer] Member Subscriber Plan / Payer (Ef fective 2014-Present) Name:Zena Chin Relation to Subscriber:Self Name:Zena Chin Payer ID:[id number] (NAIC) Type:Not on file Address: [address] Care Teams Field Artillery Radar Operator Relationship Specialty Start Date End Date Handy Bloom MD PCP - General Emergency Medicine 05/18/21
--- OUTSIDE RECORDS SUMMARY | 2025-05-27 15:16 | XMS_ITS | Referral Summary ---
Author Organization [facility] ([place], [place], [place], [place]) Address [address] [place] [address] Care Team Providers Care Insole Rasper Name Role Phone Unavailable Primary Care Provider [...]
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
[2025-05-27 15:31] VITALS: BP 130/83; PULSE 107; RESP 18; O2SAT 100; BMI 25.2
== END 2025-05-27 23:59 | disposition home or self-care (01) ==
PROVIDERS: PCP Emergency Medicine; Visit Provider Nurse Practitioner Family
DX: M50.120 Mid-cervical disc disorder, unspecified level (principal)
CPT/HCPCS: 99212; G0463

== ENCOUNTER 2025-06-07 13:32 | Outpatient (CLI) | payer BC, SELFPAY ==
--- OUTSIDE RECORDS SUMMARY | 2025-05-31 08:16 | XMS_ITS ---
Author Organization [facility] Address [address] [facility] [[email or web address]] [address] [place] [address] Care Team Providers Care Housemaid Name Role Phone Mary Watts Unavailable [phone] Medications Medication SIG (Take, Route, Fr equency, Duration) Notes Start Date End Date Status Estradiol 2 MG Tablet 1 tablet Orally On ce a day; Duration: 90 days 11/09/2024 Active Social History Sex Assigned At : Social History Observation Description Sex Assigned At Female Encounters Encounter Location Date Provider Diagnosis [facility]- [email or web address] [facility] [address] [place] [address] 05/31/2025 Mary Watts Encounter for screening for malignant neoplasm of breast Z12.31 Assessments Encounter Date Diagnosis (ICD Code) Assessment Notes Treatment Notes Treatment Clinical Notes Section Notes 05/31/2025 Encounter for screening for malignant neoplasm of breast (ICD-10 - Z12.31) Plan Of Treatment Medication Medication Name Sig Start Date Stop Date Notes Estradiol 2 MG Tablet 1 tablet Orally On ce a day; Duration: 90 days 11/09/2024 Pending Test Test Name Order Date *Screen Mammo b/l w/ Josue per protocol 0 05/31/2025 Next Appt Details Provider Name:Mary Watts, 08/09/2025 10:15:00 AM, [address] [facility], [address], [place], [address], Progress Notes * Zena CHIN ADOB:1964 (60 yo F)Acc No.[id number]:05/31/2025 Patient: Zena BOBBY :1965 A ge:60 Y S ex:Female Address:[address] [place] [address], [place] [address] * Refills Refill Estradiol Tablet, 2 MG, Orally, 90 Tablet, 1 tablet, Once a day, 90 days, Refills=3 Assessment: * Assessment: 1. E ncounter for screening for malignant neoplasm of breast - Z12.31 Plan: * Treatment: 2. O thers Refill Estradiol Tablet, 2 MG, 1 tablet, Orally, Once a day, 90 days, 90 Tablet, Refills 3. ? * true * Date: Generated for Gabbie mukherjee/Aga/Cristoitting on: 0 06/07/2025 01:35 PM EDT
--- OUTSIDE RECORDS SUMMARY | 2025-06-07 13:36 | XMS_ITS | Clinical Summary ---
Author Organization [facility] Address [address] [place] [address] Care Team Providers Care Full Decator Operator Name Role Phone Chance Schafer MD Primary Care Provider [phone] Social History Tobacco Use Types Packs/Day Years [...] [facility] [address] [place] [address] Helen Duke, GREEN CHAIN OPERATOR [address] [place] [address] Health Maintenance Due Date Last [...] 2017 UKY-Zoster Vaccines (1 of 2) 2017 HMS-PAWWY-18 Vaccine (3 - season) 2024 06/25/2021, 05/26/2021 [...] age to complete this topic Care Teams Full Decator Operator Relationship Specialty Start Date End Date Chance Schafer MD [address] [place] [address] PCP - General 02/27/21
--- OUTSIDE RECORDS SUMMARY | 2025-06-07 13:36 | XMS_ITS | Clinical Summary ---
Author Organization [facility] Address [address] [place] [address] Care Team Providers Care Laundry Operator Wash Room Name Role Phone Handy Bloom MD Primary Care Provider [phone] Allergies Active Allergy Reactions Criticality Noted Date [...] by mouth Daily. 12/10/19 21 Active rizatriptan CAMPUS REP (MAXALT-CAMPUS REP) 10 MG disintegrating tablet As Needed. Active [...] home. If you didn't receive instructions; call [phone]. 320 mL 11/17/19 22 Active Synthroid 112 [...] EDT) Hepatitis B Surface Ag NonReactive NONREACTIVE [facility] Comment: DF by IF @ 03/07/2015 13:19 TEST INFORMATION: Hepatitis B Surface Antigen The intended use of this Hepatitis B Surface Antigen assay is for clinical diagnosis only. Hep A IgM NonReactive NONREACTIVE [facility] Hep B Core IgM NonReactive NONREACTIVE [facility] Comment: DF by IF @ 03/07/2015 13:19 TEST INFORMATION: Hepatitis B Core Antibody, IgM The intended use of this Hepatitis B Core Antibody, IgM assay is for clinical diagnosis only. Hep C Virus Ab NonReactive NONREACTIVE [facility] Comment: DF by IF @ [...] specimen (specimen) 03/07/2015 10:16 AM EDT Narrative [facility] - 03/07/2015 1:19 PM EDT Specimen Type: Blood Mary Watts MD LAB BLOOD ORDERABLES Final Result [facility] [address] [place] [address], [place] [phone] from Last 3 Months or Most Recently Relevant to Health Maintenance Insurance [employer] Member Subscriber Plan / Payer (Ef fective 2014-Present) Name:Zena Chin Relation to Subscriber:Self Name:Zena Chin Payer ID:[id number] (NAIC) Type:Not on file Address: [address] Care Teams Laundry Operator Wash Room Relationship Specialty Start Date End Date Handy Bloom MD PCP - General Emergency Medicine 05/18/21
--- OUTSIDE RECORDS SUMMARY | 2025-06-07 13:36 | XMS_ITS | Patient Health Record ---
Author Organization [facility] Address [address] [place] [address] Care Team Providers Care Tempering Oven Operator Name Role Phone Mary Watts Unavailable [phone] Allergies Allergen (clinical drug ingredient) Drug/Non Drug Allergy documented on EMR Reaction Allergy Type Onset Date Status erythromycin Erythromycin rash Drug Allergy A ctive bacitracin / neomycin / polymyxin B NEOSPORIN ORIGINAL rash Drug Allergy 02/21/2014 Active POLYSPORIN (uncoded) rash Allergy 4 Active Results Component Value Reference Range Notes Pap w/reflex HPV Reviewed date:08/14/2024 08:19:52 PM Interpretation: Performing Lab:[facility] - KATIE CLIA ID [id number], [address], [address], [place] [address], Director - Carola Toscano MD Notes/Report: Any Nucleic Acid Amplification testing is performed on the [employer] [place]. Diagnosis: Negative for intraepithelial lesion or malignancy. AP results Reservoir Caretaker LMP: unknown Pertinent Clinical History/History of Surgery: Not provided CPT Codes: 48589 Satisfactory for interpretation with endocervical/transformat ion zone component present. FINAL CLINICAL INFORMATICS STRATEGIST CYTOLOGY REPORT Screening note: This specimen has been analyzed by the ThinPrep Imaging System, an interactive computer system which assists the lab in screening of ThinPrep Pap Test slides. Following imaging, the slide was reviewed by a Reservoir Caretaker and/or Pathologist. Gilda James Specimen Source: Cervical/Endocervical Other Gynecological Patient Information: Not provided Results of Last Pap: Not provided Negative for intraepithelial lesion or malignancy. Negative Educational Note: The pap screening test aids in the detection of premalignant and malignant states of the cervix. False positive and negative results may occur. It is not a diagnostic test. If abnormal cells are reported, follow-up based on current clinical guidelines and/or clinical consideration is recommended. DIAGNOSIS: Date of Last Pap: Not provided Specimen Adequacy: ICD Codes: Z01.419 Specimen Type: ThinPrep Collection Technique: [place]-Spatula Recommendation: Follow-up based on current clinical guidelines [...] W/U Status Risk Notes Problem Postmenopausal bleeding (30229506) Postmenopausal bleeding (N95.0) Active confirmed Problem Abnormal [...] 08/08/2024 Encounters Encounter Location Date Provider Diagnosis [facility] [address] [address] 11/08/2024 Mayr Watts Decreased libido R68 .82 [facility] [address] [address] 05/31/2025 Mary Watts Encounter for screen ing for malignant neoplasm of breast Z12.31 [facility] [address] [address] 08/08/2024 Maryebonie Watts Cervical smear, as p art of routine gynecological examination Z01.419 and Decreased libido R68.82 Assessments Encounter Date Diagnosis (ICD Code) Assessment Notes Treatment Notes Treatment Clinical Notes Section Notes 08/08/2024 Decreased libido (ICD-10 - R68.82) 08/08/2024 Cervical smear, as part of routine gynecological examination (ICD-10 - Z01.419) 11/08/2024 Decreased libido (ICD-10 - R68.82) 05/31/2025 Encounter for screening for malignant neoplasm of breast (ICD-10 - Z12.31) Plan Of Treatment Pending Test Test Name Order Date *Screen Mammo b/l w/ Josue per protocol 0 05/31/2025 Next Appt Details Provider Name:Mary Watts, 08/09/2025 10:15:00 AM, [address], [facility] [address], [place], [address], Insurance Providers Payer Name Payer Address Payer Phone Subscriber Number Group Number Insured Name Patient Relationship to Insured Coverage Start Date Coverage End Date [place] PPO [address] [place] [address] [id number] Zena Chin Self - patient is the insured Medical (General) History Medical History History ICD Code depression migraines hashimotos RLS Sjogrens s anxiety arthritis hypothyroidism Surgical History Surgery Date(Month/Year) carpal tunnel tubal LEEP of cervix septoplasty blepharoplasty breast biopsy Hospitalization History Reason Date(Month/Year) blepharoplasty septoplasty tubal carpal tunnel
--- OUTSIDE RECORDS SUMMARY | 2025-06-07 13:36 | XMS_ITS | Clinical Summary ---
Author Organization [employer] ([place], [place], [place], [place]) Address [address] [place] [address] Care Team Providers Care Domestic Travel Consultant Name Role Phone Unavailable Primary Care Provider [...]
--- OUTSIDE RECORDS SUMMARY | 2025-06-07 13:37 | XMS_ITS | Referral Summary ---
Author Organization [employer] ([place], [place], [place], [place]) Address [address] [place] [address] Care Team Providers Care Water Taxi Operator Name Role Phone Unavailable Primary Care Provider [...]
== END 2025-06-07 23:59 | disposition home or self-care (01) ==
LOC: RAD 13:33
PROVIDERS: PCP Emergency Medicine; Visit Provider Obstetrics & Gynecology Gynecology
DX: Z12.31 Encounter for screening mammogram for malignant neoplasm of breast (principal)
CPT/HCPCS: 77063; 77067

== ENCOUNTER 2025-06-10 08:25 | Outpatient (POV) | payer BC, SELFPAY ==
--- OUTSIDE RECORDS SUMMARY | 2025-05-31 08:16 | XMS_ITS ---
Author Organization [facility] Address [address] [facility] [address] [place] [address] Care Team Providers Care Human Capital Analyst Name Role Phone Mary Watts Unavailable [phone] Medications Medication SIG (Take, Route, Fr equency, Duration) Notes Start Date End Date Status Estradiol 2 MG Tablet 1 tablet Orally On ce a day; Duration: 90 days 11/09/2024 Active Social History Sex Assigned At : Social History Observation Description Sex Assigned At Female Encounters Encounter Location Date Provider Diagnosis [facility]- [address] [facility] [address] [place] [address] 05/31/2025 Mary Watts Encounter for screening for [...] Provider Name:Mary Watts, 08/09/2025 10:15:00 AM, [address] [facility], [address], [place], [address], Progress Notes * Zena CHIN ADOB:1964 (60 yo F)Acc No.[id number]:05/31/2025 Patient: Zena BOBBY :1965 A ge:60 Y S ex:Female Address:[address] [place] [address], [place] [address] * Refills Refill Estradiol Tablet, 2 MG, [...] Date: Generated for Gabbie mukherjee/Aga/Cristoitting on: 0 06/10/2025 08:28 AM EDT
--- OUTSIDE RECORDS SUMMARY | 2025-06-10 08:28 | XMS_ITS | Patient Health Record ---
Author Organization [facility] Address [address] [place] [address] Care Team Providers Care Program Clinician Name Role Phone Mary Watts Unavailable [phone] Allergies Allergen (clinical drug ingredient) Drug/Non Drug Allergy documented on EMR Reaction Allergy Type Onset Date Status erythromycin Erythromycin rash Drug Allergy A ctive bacitracin / neomycin / polymyxin B NEOSPORIN ORIGINAL rash Drug Allergy 02/21/2014 Active POLYSPORIN (uncoded) rash Allergy 4 Active Results Component Value Reference Range Notes Pap w/reflex HPV Reviewed date:08/14/2024 08:19:52 PM Interpretation: Performing Lab:[facility] - KATIE CLIA ID [id number], [address], [address], [place] [address], Director - Carola Toscano MD Notes/Report: Any Nucleic Acid Amplification testing is performed on the [employer] [place]. Diagnosis: Negative for intraepithelial lesion or malignancy. AP results Belt Weaver LMP: unknown Pertinent Clinical History/History of Surgery: Not provided CPT Codes: 13198 Satisfactory for interpretation with endocervical/transformat ion zone component present. FINAL INSIDE BARREL POLISHER CYTOLOGY REPORT Screening note: This specimen has been analyzed by the ThinPrep Imaging System, an interactive computer system which assists the lab in screening of ThinPrep Pap Test slides. Following imaging, the slide was reviewed by a Belt Weaver and/or Pathologist. Gilda James Specimen Source: Cervical/Endocervical [...] Codes: Z01.419 Specimen Type: ThinPrep Collection Technique: [place]-Spatula Recommendation: Follow-up based on current clinical guidelines [...] Problem Status W/U Status Risk Notes Problem Cervical smear, as part of routine gynecological examination (Z01.419) 020 Active confirmed Annual without abnormal findings Problem Abnormal vaginal bleeding in postmenopausal patient (N95.0) Active confirmed Problem Postmenopausal bleeding (56622512) Postmenopausal bleeding (N95.0) Active confirmed Vital Signs Heart Rate 110 /min 08/08/2024 Oximetry 99 % 08/08/2024 Blood pressure diastolic 62 mm Hg 08/08/2024 Height 65 in 08/08/2024 Blood pressure systolic 100 mm Hg 08/08/2024 Weight 151.0 lbs 08/08/2024 BMI 25.12 kg/m2 08/08/2024 Encounters Encounter Location Date Provider Diagnosis [facility] [address] [address] 11/08/2024 Mary Watts Decreased libido R68 .82 [facility] [address] [address] 05/31/2025 Mary Watts Encounter for screen ing for malignant neoplasm of breast Z12.31 [facility] [address] [address] 08/08/2024 Maryebonie Watts Cervical smear, as p [...] Watts, 08/09/2025 10:15:00 AM, [address], [facility] [address], [place], [address], Insurance Providers Payer Name Payer Address Payer Phone Subscriber Number Group Number Insured Name Patient Relationship to Insured Coverage Start Date Coverage End Date [place] PPO [address] [place] [address] [id number] Zena Chin Self - patient is the insured Medical (General) History Medical History History ICD Code depression migraines hashimotos RLS Sjogrens s anxiety arthritis hypothyroidism Surgical History Surgery Date(Month/Year) carpal tunnel tubal LEEP of cervix septoplasty blepharoplasty breast biopsy Hospitalization History Reason Date(Month/Year) blepharoplasty septoplasty tubal carpal tunnel
--- OUTSIDE RECORDS SUMMARY | 2025-06-10 08:28 | XMS_ITS | Clinical Summary ---
Author Organization [facility] Address [address] [place] [address] Care Team Providers Care Professor Of Mechanical Engineering Name Role Phone Handy Bloom MD Primary Care Provider [phone] Allergies Active Allergy Reactions Criticality Noted Date [...] by mouth Daily. 12/10/19 21 Active rizatriptan MANAGER INTEGRATION (MAXALT-MANAGER INTEGRATION) 10 MG disintegrating tablet As Needed. Active [...] home. If you didn't receive instructions; call [phone]. 320 mL 11/17/19 22 Active Synthroid 112 [...] EDT) Hepatitis B Surface Ag NonReactive NONREACTIVE [facility] Comment: DF by IF @ 03/07/2015 13:19 TEST INFORMATION: Hepatitis B Surface Antigen The intended use of this Hepatitis B Surface Antigen assay is for clinical diagnosis only. Hep A IgM NonReactive NONREACTIVE [facility] Hep B Core IgM NonReactive NONREACTIVE [facility] Comment: DF by IF @ 03/07/2015 13:19 TEST INFORMATION: Hepatitis B Core Antibody, IgM The intended use of this Hepatitis B Core Antibody, IgM assay is for clinical diagnosis only. Hep C Virus Ab NonReactive NONREACTIVE [facility] Comment: DF by IF @ [...] specimen (specimen) 03/07/2015 10:16 AM EDT Narrative [facility] - 03/07/2015 1:19 PM EDT Specimen Type: Blood Mary Watts MD LAB BLOOD ORDERABLES Final Result [facility] [address] [place] [address], [place] [phone] from Last 3 Months or Most Recently Relevant to Health Maintenance Insurance [employer] EM[employer]OYEE Member Subscriber Plan / Payer (Ef fective 2014-Present) Name:Zena Chin Relation to Subscriber:Self Name:Zena Chin Payer ID:[id number] (NAIC) Type:Not on file Address: [address] Care Teams Professor Of Mechanical Engineering Relationship Specialty Start Date End Date Handy Bloom MD PCP - General Emergency Medicine 05/18/21
--- OUTSIDE RECORDS SUMMARY | 2025-06-10 08:28 | XMS_ITS | Clinical Summary ---
Author Organization [facility] Address [address] [place] [address] Care Team Providers Care Aircraft Riveter Name Role Phone Chance Schafer MD Primary Care Provider Social History Tobacco Use Types Packs/Day Years [...] [facility] [address] [place] [address] Helen Duke, SOFTWARE INTEGRATION DEVELOPER [address] [place] [address] Health Maintenance Due Date Last [...] 2017 UKY-Zoster Vaccines (1 of 2) 2017 [id number]-55 Vaccine (3 - season) 2024 06/25/2021, 05/26/2021 [...] age to complete this topic Care Teams Aircraft Riveter Relationship Specialty Start Date End Date Chance Schafer MD [address] [place] [address] PCP - General 02/27/21
--- OUTSIDE RECORDS SUMMARY | 2025-06-10 08:28 | XMS_ITS | Clinical Summary ---
Author Organization [employer] ([place], [place], [place], [place]) Address [address] [place] [address] Care Team Providers Care Customer Support Analyst Name Role Phone Unavailable Primary Care Provider [...]
--- OUTSIDE RECORDS SUMMARY | 2025-06-10 08:30 | XMS_ITS | Referral Summary ---
Author Organization [employer] ([place], [place], [place], [place]) Address [address] [place] [address] Care Team Providers Care Program Support Specialist Name Role Phone Unavailable Primary Care Provider [...]
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
[2025-06-10 08:40] VITALS: BP 129/84; PULSE 114; RESP 14; O2SAT 100; BMI 25.3
== END 2025-06-10 23:59 | disposition home or self-care (01) ==
PROVIDERS: PCP Emergency Medicine; Visit Provider Nurse Practitioner Family
DX: M54.12 Radiculopathy, cervical region (principal); M50.30 Other cervical disc degeneration, unspecified cervical region; Z79.899 Other long term (current) drug therapy
CPT/HCPCS: 99212; G0463